=== PATIENT | male | born 1935 | race Caucasian/White ===

== ENCOUNTER → 2016-09-08 | Outpatient (REF) | payer MEDICARE ==
[~2016-09-08] MED LIST: /SENOSTA PO; /TAMS4CA; /TAMS4CA PO; /WARF25TA OR; ADV250INH INH; ADVAIR INH; ALEV220C2 PO; ALEV220T26 PO; ARIC5TAB; ARTH650T PO; ASPI81TA21 PO; ASPI81TA83; ASPI81TA83 PO; ATEN50TA2; ATEN50TA2 PO; AVOD0.5C PO; Albuterol Inhaler INH; Bisacodyl PO; CALC12502 OR; CENTRUM SILVER PO; CENTTAB PO; CLOP75TA2 PO; COLA100C PO; DULC5TAB PO; ERGO5000 PO; FISHOIL; FLUTISP; FURO40TA2 PO; GLUCTAB6; KEFL500C7 PO; LAMI25TA; LASI40TA PO; LITH300C PO; LITH300T2; LITH300T2 PO; LOVA1CAP16 FT; MULTCAP PO; Meloxicam PO; NITR0.4S; NITR0.4S SL; NITR4TASL SL; OCEA0.65; PLAV75TA38 PO; PLAVIX PO; PRED20TA PO; PROA1AER INH; PROAAER INH; SIMV20TA2; SIMV20TA2 PO; SPIR1CAP INH; SPIR25TA2 PO; SPIRIVA INH; Spiriva Inhaler INH; TAMS0.4C2 PO; TYLE325T5; TYLE325T5 PO; TYLE650T30 PO; Tylenol Arthritis PO; VICO5TAB PO; VITA50003 PO; VITAMIN D50000 UNT PO; VITMTA PO; Vitamin D2 PO
[2016-09-08 11:42] LABS: ALBUMIN 4.1 GM/DL (3.2-5.2); ALBUMIN/GLOBULIN RATIO 1.32 (1.00-1.93); BILIRUBIN,TOTAL 0.5 MG/DL (0.2-1.0); CALCIUM LEVEL 8.8 MG/DL (8.8-10.2); CREATININE FOR GFR 1.35 MG/DL (0.70-1.30); GLOMERULAR FILTRATION RATE 54.4 (>42); MAGNESIUM LEVEL 2.3 MG/DL (1.8-2.4); TOTAL PROTEIN 7.2 GM/DL (6.4-8.2)
== END | disposition home or self-care (01) ==
LOC: M SFHCPLAZ 09:41
PROVIDERS: ATTEND Internal Medicine
DX: R73.01 Impaired fasting glucose (principal); N18.3 Chronic kidney disease, stage 3 (moderate)

== ENCOUNTER → 2016-09-10 | Outpatient (REF) | payer MEDICARE | LOC: M SFHCPLAZ 16:52 → M SMT 16:52 | PROVIDERS: ATTEND Internal Medicine | DX: E78.00 Pure hypercholesterolemia, unspecified (principal); R30.0 Dysuria; H61.21 Impacted cerumen, right ear | CPT/HCPCS: 69210; 81001; 87088; 87186; G0463 ==

== ENCOUNTER → 2016-12-25 | Outpatient (CLI) | payer MEDICARE ==
[~2016-12-25] MED LIST changes: -COLA100C PO; +COLA100C3 PO
== END ==
LOC: M RAD 08:16
PROVIDERS: ATTEND Orthopaedic Surgery
DX: Z53.8 Procedure and treatment not carried out for other reasons (principal)

== ENCOUNTER → 2016-12-26 | Outpatient (CLI) | payer MEDICARE ==
--- NOTE | 2016-12-26 13:04 | REP ---
ULTRASOUND OF ABDOMINAL AORTA: Real-time sonographic evaluation of the abdominal aorta performed. Maximum AP diameter of abdominal aorta just below the diaphragms is 2.9 cm, at the level of the renal artery is 2.3 cm, mid infrarenal abdominal aorta 3.1 cm and distally 2.3 cm. Common iliac arteries are mildly ectatic, right measuring 2.0 cm and left 1.4 cm. IMPRESSION: Infrarenal abdominal aorta is mildly ectatic and borderline aneurysmal at 3.1 x 3.0 cm. There is mild ectasia of the common iliac arteries. Signed by Deuce Valadez MD 12/26/2016 05:19 P
== END ==
LOC: M RAD 08:26
PROVIDERS: ATTEND Orthopaedic Surgery
DX: M48.06 Spinal stenosis, lumbar region (principal); I77.811 Abdominal aortic ectasia

== ENCOUNTER → 2017-03-10 | Outpatient (REF) | payer MEDICARE ==
[~2017-03-10] MED LIST changes: -ARTH650T PO; +ARTH650T11 PO; -COLA100C3 PO; +COLA100C5 PO; +KEFL500C17 PO; -KEFL500C7 PO; +PLAV1TAB2 PO; -PLAV75TA38 PO; -PROA1AER INH; +PROAAER10 INH; +VITA1CAP40 PO; -VITA50003 PO
[2017-03-10 11:43] LABS: MEAN CORPUSCULAR HEMOGLOBIN 33.5 pg (27.0-33.0); MEAN CORPUSCULAR VOLUME 98.5 fl (80.0-96.0); RED CELL DISTRIBUTION WIDTH 13.2 % (11.5-14.5)
[2017-03-10 12:03] LABS: ALBUMIN 4.1 GM/DL (3.2-5.2); ALBUMIN/GLOBULIN RATIO 1.28 (1.00-1.93); BILIRUBIN,TOTAL 0.5 MG/DL (0.2-1.0); CALCIUM LEVEL 8.8 MG/DL (8.8-10.2); CREATININE FOR GFR 1.41 MG/DL (0.70-1.30); GLOMERULAR FILTRATION RATE 51.6 (>42); MAGNESIUM LEVEL 2.3 MG/DL (1.8-2.4); TOTAL PROTEIN 7.3 GM/DL (6.4-8.2)
== END ==
LOC: M SFHCPLAZ 09:14
PROVIDERS: ATTEND Internal Medicine
DX: G47.30 Sleep apnea, unspecified (principal); E78.00 Pure hypercholesterolemia, unspecified; N18.3 Chronic kidney disease, stage 3 (moderate); E55.9 Vitamin D deficiency, unspecified

== ENCOUNTER → 2017-05-06 | Outpatient (CLI) | payer MEDICARE ==
--- NOTE | 2017-05-06 10:58 | REP ---
Clinical: History of carotid stenosis. Comparison: 02/28/2015 . Technique: Valadez scale and color Doppler evaluation using linear high frequency transducer Findings: Two-dimensional valadez scale and color images demonstrate mixed atheromatous plaquing along the bilateral common carotid arteries extending to the carotid bulbs and proximal internal and external carotid arteries (L>R). Color Doppler interrogation demonstrates normal arterial wave patterns with no significant spectral broadening. Normal flow direction is appreciated in the bilateral vertebral arteries. RIGHT (cm/s) LEFT (cm/s) ICA peak systolic velocity 123.7 99.9 ICA diastolic velocity 26.4 27.0 ECA peak systolic velocity 137.6 100.2 CCA peak systolic velocity 88.7 81.5 ICA/CCA ratio 1.39 1.26 Impression: Based on set standards, right-sided narrowing approaches the 50-69% range while narrowing on the left side remains in the 50% range. Findings are similar to prior examination. Signed by Rohith Florian MD 05/06/2017 10:49 A
== END ==
LOC: M RAD 09:28
PROVIDERS: ATTEND Surgery Vascular Surgery
DX: I65.23 Occlusion and stenosis of bilateral carotid arteries (principal)

== ENCOUNTER → 2017-09-16 | Outpatient (REF) | payer MEDICARE ==
[2017-09-16 11:29] LABS: ESTIMATED AVERAGE GLUCOSE 111 MG/DL (60-110); HEMOGLOBIN A1c 5.5 %
[2017-09-16 11:34] LABS: ALBUMIN 3.8 GM/DL (3.2-5.2); ALBUMIN/GLOBULIN RATIO 1.27 (1.00-1.93); ALKALINE PHOSPHATASE 96 U/L (45-117); ALT/SGPT 13 U/L (12-78); ANION GAP 6 MEQ/L (8-16); AST/SGOT 12 U/L (7-37); BILIRUBIN,TOTAL 0.4 MG/DL (0.2-1.0); BLOOD UREA NITROGEN 23 MG/DL (7-18); CALCIUM LEVEL 8.8 MG/DL (8.8-10.2); CARBON DIOXIDE LEVEL 26 MEQ/L (21-32); CHLORIDE LEVEL 113 MEQ/L (98-107); CHOLESTEROL LEVEL 123 MG/DL (<200); CHOLESTEROL RISK RATIO 2.928 (<5); CREATININE FOR GFR 1.24 MG/DL (0.70-1.30); GLOMERULAR FILTRATION RATE 59.9 (>42); GLUCOSE, FASTING 95 MG/DL (70-100); HDL CHOLESTEROL 42 MG/DL (>40); LDL CHOLESTEROL 50.4 MG/DL (<100); NON-HDL-C 81 MG/DL; POTASSIUM SERUM 4.8 MEQ/L (3.5-5.1); SODIUM LEVEL 145 MEQ/L (136-145); TOTAL PROTEIN 6.8 GM/DL (6.4-8.2); TRIGLYCERIDES LEVEL 153 MG/DL (<150)
[2017-09-16 12:14] LABS: PTH INTACT 137.3 PG/ML (14.0-72.0)
== END ==
LOC: M SFHCPLAZ 09:18
DX: I25.10 Atherosclerotic heart disease of native coronary artery without angina pectoris (principal); R73.01 Impaired fasting glucose; E78.00 Pure hypercholesterolemia, unspecified; N18.3 Chronic kidney disease, stage 3 (moderate)
CPT/HCPCS: 80053

== ENCOUNTER → 2017-10-06 | Outpatient (CLI) | payer MEDICARE | LOC: M RAD 09:24 | DX: Z12.2 Encounter for screening for malignant neoplasm of respiratory organs (principal); F17.210 Nicotine dependence, cigarettes, uncomplicated; Z95.0 Presence of cardiac pacemaker; Z95.1 Presence of aortocoronary bypass graft | CPT/HCPCS: G0297 ==

== ENCOUNTER → 2018-03-15 | Outpatient (REF) | payer MEDICARE ==
[2018-03-15 12:00] LABS: PTH INTACT 160.5 PG/ML (18.5-88.0); TOTAL 25(OH) VITAMIN D 46.7 NG/ML (30.0-100.0)
[2018-03-15 12:07] LABS: ALBUMIN 4.3 GM/DL (3.2-5.2); ALBUMIN/GLOBULIN RATIO 1.23 (1.00-1.93); ALKALINE PHOSPHATASE 95 U/L (45-117); ALT/SGPT 16 U/L (12-78); ANION GAP 10 MEQ/L (8-16); AST/SGOT 14 U/L (7-37); BILIRUBIN,TOTAL 0.6 MG/DL (0.2-1.0); BLOOD UREA NITROGEN 21 MG/DL (7-18); CARBON DIOXIDE LEVEL 24 MEQ/L (21-32); CHLORIDE LEVEL 108 MEQ/L (98-107); CREATININE FOR GFR 1.42 MG/DL (0.70-1.30); GLOMERULAR FILTRATION RATE 51.1 (>35); GLUCOSE, FASTING 90 MG/DL (70-100); POTASSIUM SERUM 4.8 MEQ/L (3.5-5.1); SODIUM LEVEL 142 MEQ/L (136-145); TOTAL PROTEIN 7.8 GM/DL (6.4-8.2)
[2018-03-15 14:29] LABS: ESTIMATED AVERAGE GLUCOSE 108 MG/DL (60-110); HEMOGLOBIN A1c 5.4 %
[2018-03-15 15:12] LABS: CREATININE, URINE 27.2 MG/DL; MALB URINE SIEMENS 9.4 MG/L; MAU/CREAT RATIO 34.5 MCG/MG (0.0-30.0)
== END ==
LOC: M SFHCPLAZ 09:36
DX: N18.3 Chronic kidney disease, stage 3 (moderate) (principal); E55.9 Vitamin D deficiency, unspecified; I25.10 Atherosclerotic heart disease of native coronary artery without angina pectoris; R73.01 Impaired fasting glucose
CPT/HCPCS: 80053

== ENCOUNTER → 2018-09-03 | Outpatient (CLI) | payer MEDICARE ==
[~2018-09-03] MED LIST changes: +SPIR-10 PO; -SPIR25TA2 PO; -VITA1CAP40 PO; +VITA50005 PO
--- NOTE | 2018-09-03 10:31 | REP ---
Chest two views HISTORY: COPD Comparison: 02/12/2016 The lungs are clear. The heart is normal in size. The pulmonary vasculature is normal in appearance. The bony structure is intact. A cardiac pacemaker is present. IMPRESSION: No acute disease. Electronically Signed by Jimbo Sanabria MD 09/03/2018 10:22 A
== END ==
LOC: M SMT 09:49
PROVIDERS: ATTEND Internal Medicine Pulmonary Disease
DX: J44.9 Chronic obstructive pulmonary disease, unspecified (principal)

== ENCOUNTER → 2018-09-15 | Outpatient (REF) | payer MEDICARE | LOC: M SFHCPLAZ 10:06 | PROVIDERS: ATTEND Internal Medicine | DX: G47.30 Sleep apnea, unspecified (principal); I25.10 Atherosclerotic heart disease of native coronary artery without angina pectoris; E78.00 Pure hypercholesterolemia, unspecified; N18.3 Chronic kidney disease, stage 3 (moderate); E55.9 Vitamin D deficiency, unspecified; Z53.8 Procedure and treatment not carried out for other reasons ==

== ENCOUNTER → 2018-12-01 | Outpatient (CLI) | payer MEDICARE ==
[~2018-12-01] MED LIST changes: -/SENOSTA PO; -/TAMS4CA; -/TAMS4CA PO; -/WARF25TA OR; +COUM1TAB18 OR; +FLOM0.4C39; +FLOM0.4C39 PO; +FLUT1SPR2; +SENO1TAB PO
--- NOTE | 2018-12-01 14:58 | REP ---
CAROTID ULTRASOUND: Real-time ultrasound evaluation and duplex Doppler interrogation of the extracranial carotid vasculature is performed and compared to a prior study of 11/27/2017. Again moderate partially calcified plaque in both carotid bulbs and internal carotid arteries. There is again elevated peak systolic velocity in the right internal carotid artery. Findings are consistent with stenosis at the right internal carotid artery 60-79%. Luminal narrowing of the left internal carotid artery is most consistent with narrowing less than 50%. There is normal direction of flow in both vertebral arteries. RIGHT LEFT Peak systolic velocity ICA 203 cm/s 80.3 cm/s End diastolic velocity ICA 60 cm/s 25.1 cm/s Peak systolic velocity CCA 81.4 cm/s 73.2 cm/s Peak systolic velocity ECA 145 cm/s 98.7 cm/s ICA/CCA ratio 2.5 1.1 IMPRESSION: No change since prior studies most recently 11/27/2017. There are findings compatible with stenosis of the right internal carotid artery 60-79% with luminal narrowing of the left ICA less than 50%. Electronically Signed by Deuce Valadez MD 12/01/2018 03:25 P
== END ==
LOC: M RAD 13:05
PROVIDERS: ATTEND Surgery Vascular Surgery
DX: I65.23 Occlusion and stenosis of bilateral carotid arteries (principal)

== ENCOUNTER → 2019-01-05 | Outpatient (CLI) | payer MEDICARE ==
--- NOTE | 2019-01-05 11:59 | REP ---
Abdominal aortic sonography: History: Nicotine dependence. Abdominal aortic aneurysm. Findings: The abdominal aorta could not be seen at the diaphragmatic hiatus due to bowel gas. At the main renal artery level of the aorta is mildly dilated measuring 3.2 x 2.7 cm in AP by transverse dimension. The mid aorta measures 2.0 x 1.9 cm. The distal aorta is normal as well measuring 1.8 x 1.9 cm. The right and left common iliac arteries measure 1.1 and 0.9 cm in AP dimension respectively. Impression: Mild mid abdominal aortic aneurysm 3.2 cm in greatest AP dimension. This is unchanged with CT measurements obtained on January 29, 2017. Electronically Signed by Gonsalo Hollingsworth MD 01/05/2019 01:42 P
== END ==
LOC: M RAD 08:33
PROVIDERS: ATTEND Physician Assistant
DX: F17.218 Nicotine dependence, cigarettes, with other nicotine-induced disorders (principal); I71.4 Abdominal aortic aneurysm, without rupture

== ENCOUNTER → 2019-04-06 | Outpatient (REF) | payer MEDICARE ==
[2019-04-06 17:26] LABS: HEMATOCRIT 36.3 % (42.0-52.0); HEMOGLOBIN 11.7 g/dl (13.5-17.5); MEAN CORPUSCULAR HEMOGLOBIN 31.8 pg (27.0-33.0); MEAN CORPUSCULAR HGB CONC 32.2 g/dl (32.0-36.5); MEAN CORPUSCULAR VOLUME 98.6 fl (80.0-96.0); PLATELET COUNT, AUTOMATED 225 10^3/uL (150-450); RED BLOOD COUNT 3.68 10^6/uL (4.30-6.10); WHITE BLOOD COUNT 9.1 10^3/uL (4.0-10.0)
[2019-04-06 17:30] LABS: ALBUMIN 3.9 GM/DL (3.2-5.2); BILIRUBIN,TOTAL 0.3 MG/DL (0.2-1.0); CALCIUM LEVEL 8.8 MG/DL (8.8-10.2); CHOLESTEROL RISK RATIO 2.163 (<5); CREATININE FOR GFR 1.53 MG/DL (0.70-1.30); GLOMERULAR FILTRATION RATE 46.7 (>35); MAGNESIUM LEVEL 2.5 MG/DL (1.8-2.4); POTASSIUM SERUM 4.3 MEQ/L (3.5-5.1); TOTAL PROTEIN 6.6 GM/DL (6.4-8.2)
[2019-04-06 17:38] LABS: PTH INTACT 92.3 PG/ML (18.5-88.0)
[2019-04-06 18:02] LABS: HEMOGLOBIN A1c 5.1 %
== END ==
LOC: M SFHCPLAZ 14:53
PROVIDERS: ATTEND Internal Medicine
DX: I25.10 Atherosclerotic heart disease of native coronary artery without angina pectoris (principal); R73.01 Impaired fasting glucose; N18.3 Chronic kidney disease, stage 3 (moderate); J44.9 Chronic obstructive pulmonary disease, unspecified; R30.0 Dysuria; H61.21 Impacted cerumen, right ear
CPT/HCPCS: 36415; 69209; 80053; 80061; 83036; 83735; 83970; 85027; G0463

== ENCOUNTER → 2019-04-08 | Outpatient (REF) | payer MEDICARE ==
[2019-04-08 11:31] LABS: APPEARANCE, URINE CLEAR (CLEAR); BACTERIA, URINE AUTO NEGATIVE (NEGATIVE); BILIRUBIN, URINE AUTO NEGATIVE (NEGATIVE); BLOOD, URINE BLOOD NEGATIVE (NEGATIVE); COLOR, URINE STRAW (YELLOW); GLUCOSE, URINE (UA) AUTO NEGATIVE (NEGATIVE); KETONE, URINE AUTO NEGATIVE (NEGATIVE); LEUKOCYTE ESTERASE, URINE AUTO NEGATIVE (NEGATIVE); NITRITE, URINE AUTO NEGATIVE (NEGATIVE); PROTEIN, URINE AUTO NEGATIVE (NEGATIVE); RBC, URINE AUTO 2 /HPF (0-3); SPECIFIC GRAVITY URINE AUTO 1.005 (1.002-1.035); SQUAMOUS EPITHELIAL CELL UR AU 0 /HPF (0-6); UROBILINOGEN, URINE AUTO 0.2 mg/dL (0.0-2.0); WBC, URINE AUTO 2 /HPF (0-3)
== END ==
LOC: M SFHCPLAZ 04-07 10:14
PROVIDERS: ATTEND Internal Medicine
DX: I25.10 Atherosclerotic heart disease of native coronary artery without angina pectoris (principal); R73.01 Impaired fasting glucose; N18.3 Chronic kidney disease, stage 3 (moderate)

== ENCOUNTER → 2019-08-01 | Outpatient (REF) | payer MEDICARE ==
[~2019-08-01] MED LIST changes: +CALC1CAP31 PO; +NORC1TAB7 PO; +SIMV20TA22 PO
[2019-08-01 12:06] LABS: HEMATOCRIT 42.2 % (42.0-52.0); HEMOGLOBIN 13.4 g/dl (13.5-17.5); MEAN CORPUSCULAR HEMOGLOBIN 31.8 pg (27.0-33.0); MEAN CORPUSCULAR HGB CONC 31.8 g/dl (32.0-36.5); PLATELET COUNT, AUTOMATED 208 10^3/uL (150-450); RED BLOOD COUNT 4.22 10^6/uL (4.30-6.10); WHITE BLOOD COUNT 7.6 10^3/uL (4.0-10.0)
[2019-08-01 12:10] LABS: CALCIUM LEVEL 9.1 MG/DL (8.8-10.2); CREATININE FOR GFR 1.52 MG/DL (0.70-1.30); GLOMERULAR FILTRATION RATE 47.1 (>35); POTASSIUM SERUM 4.6 MEQ/L (3.5-5.1)
== END ==
LOC: M SFHCPLAZ 08:37
PROVIDERS: ATTEND Internal Medicine
DX: Z01.818 Encounter for other preprocedural examination (principal); I25.10 Atherosclerotic heart disease of native coronary artery without angina pectoris; G47.30 Sleep apnea, unspecified
CPT/HCPCS: 36415; 80048; 85027; G0463

== ENCOUNTER 2019-08-04 07:49 | Day surgery (SDC) | payer MEDICARE ==
[~2019-08-04] VITALS: Ht 182.9 cm; Wt 98.0 kg
[~2019-08-04 07:49] MED LIST changes: +LIDOCAINE 1% MDV 20ML VIAL SQ PRN; +LR 1,000 ML IV SCH; -NORC1TAB7 PO
[2019-08-04] MEDS ORDERED: BUPIVACAINE HCL 0.25% 30 ML VIAL As Ordered ONE (09:33)
[2019-08-04] MEDS ORDERED: BUPIVACAINE LIPOSOME/PF 1.3% 20ML VIAL (13.3MG/ML)(EXPAREL)(C9290 PER1MG) As Ordered ONE (09:33)
[2019-08-04] MEDS ORDERED: ALBUTEROL SULFATE 2.5 MG/0.5 ML INH NEB SOLN As Ordered ONE (09:52)
[2019-08-04] MEDS ORDERED: NORC1TAB7 PO (10:09)
[2019-08-04] MEDS ORDERED: ALBUTEROL SULFATE 2.5 MG/0.5 ML INH NEB SOLN INH ONE (10:15)
[2019-08-04] MEDS ORDERED: SUGAMMADEX SODIUM 500 MG/5 ML VIAL (BRIDION) As Ordered ONE (10:42)
[2019-08-04] MEDS ORDERED: ETOMIDATE INJ 20MG/10ML VIAL As Ordered ONE (10:42)
[2019-08-04] MEDS ORDERED: ONDANSETRON 4MG/2ML VIAL (J2405) As Ordered ONE (10:42)
[2019-08-04] MEDS ORDERED: PROPOFOL 200 MG/20 ML VIAL As Ordered ONE (10:42)
[2019-08-04] MEDS ORDERED: ROCURONIUM BROMIDE 50 MG/5 ML VIAL As Ordered ONE ×2 (10:42→10:49)
[2019-08-04] MEDS ORDERED: LIDOCAINE 2% INJ 100 MG/5 ML SDV (FOR ANES.) As Ordered ONE (10:42)
[2019-08-04] MEDS ORDERED: dexameTHASONE 4 MG/ML 1ML VIAL (J1100) As Ordered ONE (10:42)
[2019-08-04] MEDS ORDERED: fentaNYL 250 MCG/5 ML INJECTION (J3010) As Ordered ONE (10:42)
[2019-08-04] MEDS ORDERED: LACRILUBE (AKWA TEARS) OPHTH OINT 3.5 GM As Ordered ONE (10:52)
[2019-08-04] MEDS ORDERED: fentaNYL 100 MCG/2 ML INJECTION (J3010) As Ordered ONE (12:24)
[2019-08-04] MEDS: fentaNYL 100 MCG/2 ML INJECTION (J3010) IV PRN ×4 (12:28→12:45)
[2019-08-04] MEDS ORDERED: NORCO, ANEXSIA 5/325MG TABLET (HYDROcodone/ACETAMINOPHEN) As Ordered ONE (12:44)
[2019-08-04] MEDS: NORCO, ANEXSIA 5/325MG TABLET (HYDROcodone/ACETAMINOPHEN) PO PRN ×2 (12:47→13:23)
[2019-08-04] MEDS ORDERED: ONDANSETRON 4MG/2ML VIAL (J2405) IV PRN ×2 (13:00→13:15)
[2019-08-04] MEDS ORDERED: MORPHINE 10 MG/ML 1ML VIAL (J2270) IV PRN ×2 (13:00→13:15)
[2019-08-04] MEDS ORDERED: LR 1,000 ML IV SCH ×2 (13:00→13:15)
[2019-08-04] MEDS ORDERED: NORCO, ANEXSIA 5/325MG TABLET (HYDROcodone/ACETAMINOPHEN) PO PRN ×2 (13:15→14:00)
[2019-08-04] MEDS ORDERED: fentaNYL 100 MCG/2 ML INJECTION (J3010) IV PRN (13:15)
[2019-08-04] MEDS ORDERED: ACETAMINOPHEN TAB 650MG DOSE (2X325MG) PO PRN ×2 (13:15→14:00)
[2019-08-04 17:57] VITALS: BP 124/65
--- NOTE | 2019-08-04 23:07 | RO ---
DATE OF PROCEDURE: 08/04/2019 PREOPERATIVE DIAGNOSIS: Right inguinal hernia. POSTOPERATIVE DIAGNOSIS: Indirect right inguinal hernia. PROCEDURE PERFORMED: Robotic-assisted laparoscopic right inguinal herniorrhaphy with mesh. SURGEON: Nigel Pena MD FRONT DESK ADMIN: MARIAM Moore. Jamilah assisted during the procedure with placement of the robotic ports, change of instruments, insertion of mesh and sutures and removal of needles as well as closure of the incisions. ANESTHESIA: General. INDICATIONS FOR PROCEDURE Patient is an 83-year-old man who has noted a bulge in the right inguinal area and on exam was confirmed to have an inguinal hernia. He is now for a robotic-assisted laparoscopic right inguinal herniorrhaphy. OPERATIVE PROCEDURE The patient was brought to the operating room and placed on the table in a supine position. He was placed under general endotracheal anesthesia. The patient's abdomen and groins were prepped and draped in a sterile fashion. The sites for three trocars across the upper abdomen approximately 5-6 cm above the level of the umbilicus were marked. Local anesthesia was achieved with 0.25% Marcaine. The left upper quadrant incision was made and a Veress needle was inserted. After positive hanging drop test the abdomen was insufflated with carbon dioxide gas. An 8-mm port was placed over the 5 mm scope and advanced through the abdominal wall without difficulty. Initial inspection identified the patient has known incarcerated umbilical hernia which contained some omental fat. He was noted to have a single strand-like adhesion of omentum in the right midabdomen as well as some adhesions to the anterior abdominal wall of the right lateral abdomen at the site of a prior appendectomy. These latter adhesions did not seem to interfere in any way with identification of his inguinal hernia. He was noted to have a roughly 2 cm hernia defect on the right with no hernia on the left. The midline and right ports were then also placed under direct vision. The patient was tilted to approximately 15 degrees of Trendelenburg. The patient cart of the OFERTALDIA Mehreen robot was then brought into position and the camera port was docked. The pelvis was targeted and the additional ports were then also docked. A Force bipolar and cauterizing scissors were inserted. I then moved to the control console to proceed with the robotic portion of the procedure. The area of the hernia was inspected. The defect appeared to lie lateral to the inferior epigastric vessels consistent with an indirect hernia. A peritoneal flap was then developed by making an arcuate incision beginning with the medial umbilical ligament and extending laterally and then inferiorly. The flap was developed with a combination of sharp and cautery dissection working inferiorly. The inferior epigastric vessels were identified and preserved. The fascial tissues near the midline and Anupam's ligament were identified. The hernia sac was inverted and away from the other structures of the spermatic cord. The vas deferens and the vessels were identified and preserved. Once the preperitoneal space had been developed adequately, a Bard 3-D Max light mesh large in size and developed for the right side was inserted into the abdomen. This was reference code [id number] and lot number [id number]. This was placed into the preperitoneal space and nicely covered the area of the hernia defect. This was tacked at Anupam's ligament and in the upper outer edge of the mesh using simple sutures of #2-0 Vicryl. The peritoneal flap was then closed with a running #2-0 V-Loc suture. I would note that the abdominal pressure had been reduced to approximately 8 cm of water after the flap had been developed. The patient was returned to a flat position and then moved to a slight reverse Trendelenburg position. The robotic instruments were removed and the abdomen was deflated. The skin incisions were closed with buried sutures of #4-0 Vicryl. Steri-Strips and light dressings were applied. The patient was noted to have some significant gaseous distension of the scrotum up to about 20 to even 25 cm. There was also some prepubic subcutaneous air or gas identified. The patient tolerated the procedure well without apparent complication. He was awakened in the operating room, extubated and moved to the recovery room in stable condition. EDITORIAL NOTE Editing note that in the body of the report that after the hernia repair had been completed, I elected to divide the single band-like adhesion in the right side of the abdomen and this was cauterized and divided.
== END 2019-08-04 18:00 | disposition home or self-care (01) ==
LOC: M SDC 07:49
PROVIDERS: ATTEND Surgery
DX: K40.90 Unilateral inguinal hernia, without obstruction or gangrene, not specified as recurrent (principal); I25.2 Old myocardial infarction; I10 Essential (primary) hypertension; E78.5 Hyperlipidemia, unspecified; I25.10 Atherosclerotic heart disease of native coronary artery without angina pectoris; Z92.3 Personal history of irradiation; F41.9 Anxiety disorder, unspecified; F17.218 Nicotine dependence, cigarettes, with other nicotine-induced disorders; Z95.0 Presence of cardiac pacemaker; Z79.899 Other long term (current) drug therapy; Z88.0 Allergy status to penicillin; Z88.8 Allergy status to other drugs, medicaments and biological substances
CPT/HCPCS: 49650; C1781; J1100; J2405; J3010

== ENCOUNTER → 2019-10-07 | Outpatient (CLI) | payer MEDICARE ==
[~2019-10-07] MED LIST changes: -ARTH650T11 PO; +ARTH650T4 PO; -LIDOCAINE 1% MDV 20ML VIAL SQ PRN; -LR 1,000 ML IV SCH; +NORC1TAB7 PO
[2019-10-07 14:05] LABS: HEMATOCRIT 41.5 % (42.0-52.0); HEMOGLOBIN 13.3 g/dl (13.5-17.5); MEAN CORPUSCULAR HEMOGLOBIN 31.7 pg (27.0-33.0); MEAN CORPUSCULAR VOLUME 98.8 fl (80.0-96.0); PLATELET COUNT, AUTOMATED 212 10^3/uL (150-450); WHITE BLOOD COUNT 8.2 10^3/uL (4.0-10.0)
[2019-10-07 14:30] LABS: HEMOGLOBIN A1c 5.3 %
[2019-10-07 14:38] LABS: ALBUMIN 4.4 GM/DL (3.2-5.2); BILIRUBIN,TOTAL 0.5 MG/DL (0.2-1.0); CALCIUM LEVEL 9.4 MG/DL (8.8-10.2); CREATININE FOR GFR 1.88 MG/DL (0.70-1.30); GLOMERULAR FILTRATION RATE 36.8 (>35); MAGNESIUM LEVEL 2.4 MG/DL (1.8-2.4); POTASSIUM SERUM 4.5 MEQ/L (3.5-5.1); TOTAL PROTEIN 7.3 GM/DL (6.4-8.2)
[2019-10-07 14:42] LABS: PTH INTACT 104.7 PG/ML (18.5-88.0)
[2019-10-07 14:43] LABS: MALB URINE SIEMENS 11.2 MG/L; MAU/CREAT RATIO 10.5 MCG/MG (0.0-30.0)
== END ==
LOC: M PLALAB 10:20
PROVIDERS: ATTEND Internal Medicine
DX: R73.01 Impaired fasting glucose (principal); I25.10 Atherosclerotic heart disease of native coronary artery without angina pectoris; G47.30 Sleep apnea, unspecified; N18.3 Chronic kidney disease, stage 3 (moderate)

== ENCOUNTER → 2020-04-25 | Outpatient (CLI) | payer MEDICARE ==
[~2020-04-25] MED LIST changes: +ARTH650T11 PO; -ARTH650T4 PO
--- NOTE | 2020-05-22 14:31 | REP ---
AORTIC ULTRASOUND CLINICAL: History of abdominal aortic aneurysm for follow-up. TECHNIQUE: Real-time wallace scale and color Doppler evaluation using curved array transducer. FINDINGS: A mid abdominal aortic aneurysm is again identified and essentially unchanged measuring approximately 3.3 x 3.9 cm maximal AP and transverse diameter and 5.8 cm in craniocaudal length along with ectatic bilateral iliac arteries. Proximal aorta measures 2.2 x 2.5 cm in diameter. Aorta at the level of the renal arteries is incompletely evaluated due to bowel gas. Mid aorta measures 3.2 x 3.9 cm maximal diameter. Distal aorta above the level of bifurcation measures 2.8 x 3.3 cm maximal diameter. Right common iliac artery measures 1.8 x 2.0 cm in diameter. Left common iliac artery measures 1.2 x 1.7 cm in diameter. IMPRESSION: * Mid abdominal aortic aneurysm essentially unchanged from prior examination. * Ectatic bilateral iliac arteries again noted as well. MTDD
--- NOTE | 2020-05-22 14:32 | REP ---
CAROTID DOPPLER ULTRASOUND CLINICAL: History of carotid arterial stenosis. TECHNIQUE: Real-time wallace scale and color Doppler evaluation using linear high frequency transducer. COMPARISON: 12/01/2018. FINDINGS: A mild amount of partially calcified atheromatous plaquing is noted involving the bilateral carotid bulbs and extending into the proximal internal and external carotid arteries bilaterally (left greater than right). Normal laminar flow is appreciated with color imaging and normal arterial wave patterns are identified. The vertebral arteries demonstrate normal bilateral flow direction. PEAK FLOW VELOCITY ANALYSIS RIGHT LEFT ICA PSV 112.9 cm/s 126.4 cm/s ICA EDV 31.5 cm/s 31.4 cm/s ECA PSV 100.4 cm/s 87.4 cm/s CCA PSV 82.2 cm/s 86.8 cm/s ICA/CCA RATIO 1.4 1.5 IMPRESSION: Current examination now demonstrates narrowing in the right internal carotid artery at the less than 50% range and narrowing in the left internal carotid artery in the 50% to 69% range. In comparison with the prior examination, the right internal carotid artery (ICA) appears improved. MTDD
== END ==
LOC: M RAD 08:37
PROVIDERS: ATTEND Physician Assistant
DX: I65.23 Occlusion and stenosis of bilateral carotid arteries (principal); I71.4 Abdominal aortic aneurysm, without rupture

== ENCOUNTER → 2020-11-07 | Outpatient (CLI) | payer MEDICARE ==
--- NOTE | 2020-11-07 09:44 | REP ---
INDICATION: ABDOMINAL AORTIC ANEURYSM, WITHOUT RUPTURE COMPARISON: 01/29/2017 TECHNIQUE: Axial noncontrast images from the lung bases to the pubic symphysis with coronal and sagittal reformations. This CT examination was performed using the following dose reduction techniques: Automated exposure control, adjustment of mA and/or kv according to the patient's size, and use of iterative reconstruction technique. FINDINGS: Atherosclerotic changes to the aorta and branch vessels again noted. The aorta is mildly tortuous and demonstrates moderate ectasia up to approximately 3.2 cm maximal diameter and unchanged from prior examination. Liver, spleen, pancreas, bilateral adrenal glands and kidneys are essentially normal for noncontrast evaluation. Mild symmetric chronic appearing perinephric stranding along with few small rounded hypodense renal lesions which may represent cysts are again noted. Cholelithiasis noted without evidence for acute cholecystitis. The enteric system demonstrates significant sigmoid diverticulosis. There is no evidence for bowel obstruction or acute inflammatory process. 3.5 cm fat containing periumbilical hernia is unchanged. Evaluation of the pelvis is limited by metallic streak artifact and demonstrates relatively normal bladder along with prostatomegaly. No ascites. No free air. No adenopathy. Skeletal structures demonstrate age-related degenerative changes and chronic scoliosis. Lung bases are clear. IMPRESSION: 1. Atherosclerotic changes and ectasia to the abdominal aorta measuring 3.2 cm maximal diameter. Findings unchanged from prior examination. 2. Small renal hypodensities likely cysts which may warrant ultrasound confirmation. 3. Sigmoid diverticulosis without acute diverticulitis. 4. Stable fat containing periumbilical hernia. 5. Prostatomegaly. <Electronically signed by Rohith Florian > 11/07/20 [id number]
--- NOTE | 2020-11-07 09:51 | REP ---
INDICATION: ABDOMINAL AORTIC ANEURYSM, WITHOUT RUPTURE. COMPARISON: 04/25/2020. TECHNIQUE: Duplex Doppler ultrasound of the carotid arteries. FINDINGS: Peak flow velocities: Right left Internal carotid artery 241.7 cm/sec 119.7 cm/sec Int. Carotid diastolic 43.3 cm/sec 25.4 cm/sec External carotid artery 127.8 cm/sec 131.0 cm/sec Common carotid artery 103.2 cm/sec 95.7 cm/sec ICA-CCA ratio 2.3 1.3 There is moderate to heavy atheromatous plaque bilaterally in the distal common carotid arteries proximal internal carotid arteries and proximal external carotid arteries. The peak flow velocity in the right internal carotid artery has significantly increased from the comparison study and is now compatible with 70% or greater stenosis but less than near occlusion. The peak flow velocity in the left internal carotid artery is normal indicating there is less than 50% narrowing. No significant stenosis. There is antegrade flow in the vertebral arteries bilaterally. IMPRESSION: There has been significant elevation of the right internal carotid peak flow velocity from the prior study today measuring 241.7 centimeters/second. This is compatible with 70% stenosis or greater but less than near occlusion. Vascular surgery consultation might be considered. <Electronically signed by Deuce Jackson > 11/07/20 0915
== END ==
LOC: M RAD 08:46
PROVIDERS: ATTEND Physician Assistant
DX: I71.4 Abdominal aortic aneurysm, without rupture (principal); I65.23 Occlusion and stenosis of bilateral carotid arteries; K57.30 Diverticulosis of large intestine without perforation or abscess without bleeding; N40.1 Benign prostatic hyperplasia with lower urinary tract symptoms; N28.89 Other specified disorders of kidney and ureter

== ENCOUNTER → 2020-12-31 | Outpatient (CLI) | payer MEDICARE ==
[2020-12-31 13:56] LABS: HEMOGLOBIN 13.2 g/dl (13.5-17.5); MEAN CORPUSCULAR HEMOGLOBIN 32.8 pg (27.0-33.0); MEAN CORPUSCULAR HGB CONC 33.8 g/dl (32.0-36.5); MEAN CORPUSCULAR VOLUME 96.8 fl (80.0-96.0); PLATELET COUNT, AUTOMATED 223 10^3/uL (150-450); RED BLOOD COUNT 4.03 10^6/uL (4.30-6.10); WHITE BLOOD COUNT 7.1 10^3/uL (4.0-10.0)
[2020-12-31 14:36] LABS: CREATININE FOR GFR 1.72 MG/DL (0.70-1.30); GLOMERULAR FILTRATION RATE 40.6 (>35); THYROID STIMULATING HORMONE 0.73 uIU/ML (0.358-3.740)
== END ==
LOC: M PLALAB 11:43
PROVIDERS: ATTEND Psychiatry & Neurology Psychiatry
DX: I50.42 Chronic combined systolic (congestive) and diastolic (congestive) heart failure (principal); Z79.899 Other long term (current) drug therapy

== ENCOUNTER → 2021-01-08 | Outpatient (CLI) | payer MEDICARE ==
--- NOTE | 2021-01-08 11:15 | REPPI ---
INDICATION: COPD. COMPARISON: 12/27/2019 the latest prior TECHNIQUE: PA and lateral FINDINGS: The superior mediastinal structures are midline. The cardiac silhouette is unremarkable in size, shape, and position. The diaphragmatic surfaces of the lungs are regular, and the costophrenic angles are clear. The pulmonary san are clear. The imaged osseous structures are intact. The dual chamber bipolar pacemaker devices unchanged. The intracardiac stent is unchanged. IMPRESSION: There is no acute cardiopulmonary disease. <Electronically signed by Fitz Dougherty > 01/08/21 1118
== END ==
LOC: M PLAIMG 10:03
PROVIDERS: ATTEND Internal Medicine Pulmonary Disease
DX: J44.9 Chronic obstructive pulmonary disease, unspecified (principal)

== ENCOUNTER → 2021-01-30 | Outpatient (REF) | payer MEDICARE ==
[2021-01-30 15:27] LABS: BASO # 0.1 10^3/uL (0.0-0.2); BASO % 0.6 % (0.0-1.0); EOS # 0.4 10^3/uL (0.0-0.5); EOS % 4.4 % (0.0-3.0); HEMATOCRIT 37.9 % (42.0-52.0); HEMOGLOBIN 12.4 g/dl (13.5-17.5); LYMPH # 2.4 10^3/uL (1.5-5.0); LYMPH % 30.4 % (24.0-44.0); MEAN CORPUSCULAR HEMOGLOBIN 32.7 pg (27.0-33.0); MEAN CORPUSCULAR HGB CONC 32.7 g/dl (32.0-36.5); MONO # 0.5 10^3/uL (0.0-0.8); MONO % 6.8 % (2.0-8.0); NEUTROPHILS # 4.6 10^3/uL (1.5-8.5); NEUTROPHILS % 57.4 % (36.0-66.0); PLATELET COUNT, AUTOMATED 234 10^3/uL (150-450); RED BLOOD COUNT 3.79 10^6/uL (4.30-6.10)
[2021-01-30 17:25] LABS: ALBUMIN 3.8 GM/DL (3.2-5.2); ALT/SGPT 14 U/L (12-78); BILIRUBIN,TOTAL 0.4 MG/DL (0.2-1.0); BLOOD UREA NITROGEN 22 MG/DL (7-18); CALCIUM LEVEL 8.8 MG/DL (8.8-10.2); CARBON DIOXIDE LEVEL 23 MEQ/L (21-32); CHLORIDE LEVEL 110 MEQ/L (98-107); CHOLESTEROL LEVEL 122 MG/DL (<200); CHOLESTEROL RISK RATIO 2.346 (<5); CREATININE FOR GFR 1.61 MG/DL (0.70-1.30); FOLATE 14.9 NG/ML; GLOMERULAR FILTRATION RATE 43.8 (>35); GLUCOSE, FASTING 90 MG/DL (70-100); HDL CHOLESTEROL 52 MG/DL (>40); LDL CHOLESTEROL 45 MG/DL (<100); NON-HDL-C 70 MG/DL; POTASSIUM SERUM 4.4 MEQ/L (3.5-5.1); PTH INTACT 95.6 PG/ML (18.5-88.0); SODIUM LEVEL 141 MEQ/L (136-145); TOTAL PROTEIN 6.7 GM/DL (6.4-8.2); TRIGLYCERIDES LEVEL 126 MG/DL (<150); VITAMIN B12 LEVEL 309 PG/ML
== END ==
LOC: M SFHCPLAZ 11:59
PROVIDERS: ATTEND Internal Medicine
DX: E78.00 Pure hypercholesterolemia, unspecified (principal); N18.30 Chronic kidney disease, stage 3 unspecified; R26.89 Other abnormalities of gait and mobility; G47.30 Sleep apnea, unspecified; Z11.59 Encounter for screening for other viral diseases
CPT/HCPCS: 36415; 80053; 80061; 82607; 82746; 83970; 84443; 85025; G0463; G0472

== ENCOUNTER → 2021-03-13 | Outpatient (CLI) | payer MEDICARE | LOC: M PLALAB 11:12 | PROVIDERS: ATTEND Psychiatry & Neurology Psychiatry | DX: Z79.899 Other long term (current) drug therapy (principal) ==

== ENCOUNTER → 2021-03-25 | Outpatient (CLI) | payer MEDICARE ==
[2021-03-25 10:38] LABS: BASO # 0.1 10^3/uL (0.0-0.2); BASO % 0.6 % (0.0-1.0); EOS # 0.3 10^3/uL (0.0-0.5); EOS % 4.1 % (0.0-3.0); HEMATOCRIT 38.4 % (42.0-52.0); HEMOGLOBIN 12.5 g/dl (13.5-17.5); LYMPH # 2.3 10^3/uL (1.5-5.0); LYMPH % 28.3 % (24.0-44.0); MEAN CORPUSCULAR HEMOGLOBIN 32.6 pg (27.0-33.0); MEAN CORPUSCULAR HGB CONC 32.6 g/dl (32.0-36.5); MEAN CORPUSCULAR VOLUME 100.3 fl (80.0-96.0); MONO # 0.5 10^3/uL (0.0-0.8); MONO % 5.8 % (2.0-8.0); NEUTROPHILS # 4.9 10^3/uL (1.5-8.5); NEUTROPHILS % 60.8 % (36.0-66.0); PLATELET COUNT, AUTOMATED 256 10^3/uL (150-450); RED BLOOD COUNT 3.83 10^6/uL (4.30-6.10)
[2021-03-25 11:05] LABS: ALBUMIN 4.1 GM/DL (3.2-5.2); BILIRUBIN,TOTAL 0.4 MG/DL (0.2-1.0); CREATININE FOR GFR 1.91 MG/DL (0.70-1.30); POTASSIUM SERUM 4.9 MEQ/L (3.5-5.1); TOTAL PROTEIN 7.1 GM/DL (6.4-8.2)
== END ==
LOC: M PLALAB 08:07
PROVIDERS: ATTEND Internal Medicine
DX: R53.1 Weakness (principal)
CPT/HCPCS: 36415; 80053; 85025; G0463

== ENCOUNTER → 2021-03-25 | Outpatient (REF) | payer MEDICARE | LOC: M SFHCPLAZ 07:37 | PROVIDERS: ATTEND Internal Medicine | DX: R53.1 Weakness (principal) ==

== ENCOUNTER → 2021-04-03 | Outpatient (CLI) | payer MEDICARE ==
--- NOTE | 2021-04-03 13:47 | REPVR ---
PROCEDURE INFORMATION: Exam: CT Head Without Contrast Exam date and time: 04/03/2021 10:20 AM Age: 85 years old Clinical indication: Walking, difficulty and other: Tremor TECHNIQUE: Imaging protocol: Computed tomography of the head without contrast. Radiation optimization: All CT scans at this facility use at least one of these dose optimization techniques: automated exposure control; mA and/or kV adjustment per patient size (includes targeted exams where dose is matched to clinical indication); or iterative reconstruction. COMPARISON: US Duplex,carotid (complete) 11/07/2020 9:03 AM FINDINGS: Brain: There is no acute intracranial hemorrhage, cerebral edema, or midline shift. Chronic microvascular ischemic changes are seen in the periventricular white matter. Age-related cerebral and cerebellar volume loss is present. Cerebral ventricles: No hydrocephalus. Paranasal sinuses: There is no acute sinusitis. Mastoid air cells: The mastoid air cells are clear. Orbital cavity: The included orbital structures are unremarkable. Vasculature: Atherosclerotic calcifications are seen involving the cavernous carotid arteries. Bones/joints: No acute fracture. Soft tissues: Unremarkable. IMPRESSION: 1. No acute intracranial abnormality. 2. Atrophy and chronic deep white matter ischemic changes. Electronically signed by: Derrell Bansal On 04/03/2021 13:46:43 PM
== END ==
LOC: M PLAIMG 09:52
PROVIDERS: ATTEND Internal Medicine
DX: R25.1 Tremor, unspecified (principal)

== ENCOUNTER → 2021-06-26 | Outpatient (CLI) | payer MEDICARE ==
[2021-06-26 14:03] LABS: BILIRUBIN,TOTAL 0.4 MG/DL (0.2-1.0); CALCIUM LEVEL 9.9 MG/DL (8.8-10.2); CREATININE FOR GFR 1.87 MG/DL (0.70-1.30); GLOMERULAR FILTRATION RATE 36.9 (>35); POTASSIUM SERUM 5.2 MEQ/L (3.5-5.1); TOTAL PROTEIN 7.1 GM/DL (6.4-8.2)
[2021-06-26 14:08] LABS: PTH INTACT 80.9 PG/ML (18.5-88.0)
== END ==
LOC: M PLALAB 09:19
PROVIDERS: ATTEND Internal Medicine
DX: N18.30 Chronic kidney disease, stage 3 unspecified (principal); I50.42 Chronic combined systolic (congestive) and diastolic (congestive) heart failure

== ENCOUNTER → 2021-06-26 | Outpatient (CLI) | payer MEDICARE ==
[2021-06-26 13:59] LABS: CREATININE FOR GFR 1.83 MG/DL (0.70-1.30); GLOMERULAR FILTRATION RATE 37.8 (>35); MAGNESIUM LEVEL 2.4 MG/DL (1.8-2.4); POTASSIUM SERUM 5.3 MEQ/L (3.5-5.1)
== END ==
LOC: M PLALAB 09:22
PROVIDERS: ATTEND Physician Assistant
DX: I50.42 Chronic combined systolic (congestive) and diastolic (congestive) heart failure (principal)

== ENCOUNTER → 2021-11-05 | Outpatient (CLI) | payer MEDICARE ==
[2021-11-05 13:51] LABS: CALCIUM LEVEL 9.5 MG/DL (8.8-10.2); CREATININE FOR GFR 1.94 MG/DL (0.70-1.30); GLOMERULAR FILTRATION RATE 35.3 (>35); MAGNESIUM LEVEL 2.5 MG/DL (1.8-2.4); POTASSIUM SERUM 5.2 MEQ/L (3.5-5.1)
== END ==
LOC: M PLALAB 11:38
PROVIDERS: ATTEND Physician Assistant
DX: I50.42 Chronic combined systolic (congestive) and diastolic (congestive) heart failure (principal)

== ENCOUNTER → 2021-12-13 | Outpatient (REF) | payer MEDICARE ==
[2021-12-13 17:51] LABS: TOTAL PROTEIN 6.7 GM/DL (6.4-8.2)
== END ==
LOC: M LAB REF 17:07
PROVIDERS: ATTEND Internal Medicine Nephrology
DX: I50.42 Chronic combined systolic (congestive) and diastolic (congestive) heart failure (principal)

== ENCOUNTER → 2021-12-30 | Outpatient (REF) | payer MEDICARE | LOC: M SFHCPLAZ 15:02 | PROVIDERS: ATTEND Internal Medicine | DX: E78.00 Pure hypercholesterolemia, unspecified (principal) ==

== ENCOUNTER → 2021-12-31 | Outpatient (CLI) | payer MEDICARE ==
[2021-12-31 10:44] LABS: CHOLESTEROL RISK RATIO 2.388 (<5)
== END ==
LOC: M PLALAB 07:46
PROVIDERS: ATTEND Internal Medicine
DX: E78.00 Pure hypercholesterolemia, unspecified (principal)

== ENCOUNTER → 2022-01-24 | Outpatient (CLI) | payer MEDICARE | LOC: M RAD 11:56 | PROVIDERS: ATTEND Internal Medicine Nephrology | DX: N18.31 Chronic kidney disease, stage 3a (principal) ==

== ENCOUNTER 2022-02-14 12:38 | Inpatient (IN) | payer MEDICARE ==
[~2022-02-14] VITALS: Ht 185.4 cm; Wt 92.8 kg
[2022-02-14] MEDS: LITHIUM CARBONATE 300 MG CAP PO SCH (02:15)
[2022-02-14] MEDS: SIMVASTATIN 20 MG TAB PO SCH (02:15)
[2022-02-14] MEDS ORDERED: NS 500 ML IV ONE (16:05)
[2022-02-14] MEDS ORDERED: MORPHINE 2 MG/ML 1ML VIAL IV ONE (16:05)
[2022-02-14] MEDS ORDERED: ONDANSETRON 4MG 2ML VIAL IV ONE (16:05)
[2022-02-14 16:33] LABS: BASO % 0.1 % (0.0-1.0); EOS % 0.1 % (0.0-3.0); HEMOGLOBIN 12.2 g/dl (13.5-17.5); LYMPH # 0.6 10^3/uL (1.5-5.0); LYMPH % 4.2 % (24.0-44.0); MEAN CORPUSCULAR HEMOGLOBIN 33.1 pg (27.0-33.0); MEAN CORPUSCULAR VOLUME 100.3 fl (80.0-96.0); MONO # 0.4 10^3/uL (0.0-0.8); NEUTROPHILS # 12.8 10^3/uL (1.5-8.5); NEUTROPHILS % 92.2 % (36.0-66.0); PLATELET COUNT, AUTOMATED 216 10^3/uL (150-450); RED BLOOD COUNT 3.69 10^6/uL (4.30-6.10); WHITE BLOOD COUNT 13.9 10^3/uL (4.0-10.0)
[2022-02-14 17:04] LABS: ALBUMIN 4.2 GM/DL (3.2-5.2); BILIRUBIN,DIRECT 0.2 MG/DL (0.0-0.2); BILIRUBIN,TOTAL 0.6 MG/DL (0.2-1.0); TOTAL PROTEIN 7.3 GM/DL (6.4-8.2)
[2022-02-14] MEDS ORDERED: HYDROMORPHONE HCL 0.5 MG/ 0.5 ML SYRINGE (J1170 PER 1) IV ONE (18:05)
[2022-02-14 18:09] LABS: RSV AMPLIFICATION NEGATIVE (NEGATIVE)
[2022-02-14] MEDS ORDERED: MOM 30ML SUSPENSION UDC PO PRN (20:00)
[2022-02-14] MEDS ORDERED: NS 1,000 ML IV SCH (20:00)
[2022-02-14] MEDS ORDERED: MAALOX 30 ML SUSP *UDC PO PRN (20:00)
[2022-02-14] MEDS ORDERED: ACETAMINOPHEN TAB 650MG DOSE (2X325MG) PO PRN (20:00)
[2022-02-14] MEDS ORDERED: MORPHINE 2 MG/ML 1ML VIAL IV PRN (20:05)
[2022-02-14] MEDS ORDERED: IPRATROPIUM 0.5MG/ALBUTEROL 2.5MG INH SOL UD 3ML (DUONEB) NEB PRN (20:05)
[2022-02-14] MEDS ORDERED: ERTAPENEM 1GM VIAL(INVanz) (J1335 PER 500MG) As Ordered ONE (20:43)
[2022-02-14] MEDS ORDERED: CLIN-250 PO (20:44)
[2022-02-14] MEDS ORDERED: OXYC1TAB23 PO (20:44)
[2022-02-14] MEDS ORDERED: ROCA0.5C PO (20:44)
[2022-02-14] MEDS ORDERED: ASPI81TA26 PO (20:45)
[2022-02-14] MEDS ORDERED: HOME MED LIST COMPLETE! XX SCH (20:50)
[2022-02-14] MEDS ORDERED: ALBUTEROL 90 MCG/ACT 8GM HFA INHALER INH PRN (21:50)
[2022-02-14] MEDS ORDERED: NITROGLYCERIN 0.4 MG SUBL TABLET SL PRN (21:50)
[2022-02-14] MEDS ORDERED: BUPIVACAINE LIPOSOME/PF 1.3% 20ML VIAL (13.3MG/ML)(EXPAREL) As Ordered ONE (22:03)
[2022-02-14] MEDS ORDERED: BUPIVACAINE HCL 0.25% 30ML VIAL As Ordered ONE (22:03)
[2022-02-14] MEDS ORDERED: ETOMIDATE INJ 20MG/10ML VIAL As Ordered ONE (22:39)
[2022-02-14] MEDS ORDERED: dexameTHASONE 4 MG/ML 1ML VIAL (J1100 PER 1MG) As Ordered ONE (22:39)
[2022-02-14] MEDS ORDERED: PHENYLephrine 500MCG 5ML (100MCG/ML) SYRINGE As Ordered ONE (22:39)
[2022-02-14] MEDS ORDERED: ONDANSETRON 4MG 2ML VIAL As Ordered ONE (22:39)
[2022-02-14] MEDS ORDERED: propofoL 200 MG/20 ML VIAL As Ordered ONE (22:39)
[2022-02-14] MEDS ORDERED: fentaNYL 250 MCG/5 ML INJECTION As Ordered ONE (22:39)
[2022-02-14] MEDS ORDERED: ROCURONIUM BROMIDE 50 MG/5 ML VIAL As Ordered ONE (22:39)
[2022-02-14] MEDS ORDERED: SUGAMMADEX SODIUM 500 MG/5 ML VIAL (BRIDION) As Ordered ONE (22:39)
[2022-02-14] MEDS ORDERED: PHENYLEPHRINE 10MG/ML 1ML VIAL (J2370 PER 1) As Ordered ONE (22:47)
[2022-02-14] MEDS ORDERED: ePHEDrine SULFATE 25 MG/5 ML(5MG/ML) SYRINGE As Ordered ONE (22:59)
[2022-02-14] MEDS ORDERED: ACETAMINOPHEN 1000MG 100ML IV BTL (OFIRMEV) (J0131 PER 10MG) As Ordered ONE (22:59)
[2022-02-15] VITALS (91 sets, daily range): BP systolic 75–128; BP diastolic 44–66
[2022-02-15] MEDS ORDERED: PERCOCET 5MG/325MG TAB PO PRN ×2 (00:10)
[2022-02-15] MEDS: LR 1,000 ML IV SCH ×3 (00:15→20:28)
[2022-02-15] MEDS ORDERED: PHENYLEPHRINE 10MG/ML 1ML VIAL (J2370 PER 1) As Ordered ONE (00:33)
[2022-02-15] MEDS ORDERED: fentaNYL 100 MCG/2 ML INJECTION As Ordered ONE (00:35)
[2022-02-15] MEDS: fentaNYL 100 MCG/2 ML INJECTION IV PRN ×4 (00:35→00:55)
[2022-02-15] MEDS ORDERED: ONDANSETRON 4MG 2ML VIAL IV PRN (00:50)
[2022-02-15] MEDS ORDERED: MORPHINE 2 MG/ML 1ML VIAL IV PRN (00:50)
[2022-02-15] MEDS ORDERED: LR 1,000 ML IV SCH (00:50)
[2022-02-15] MEDS ORDERED: PHENYLEPHRINE HCL INJ 50 MG in D5W 495 ML IV SCH ×4 (00:55→06:20)
[2022-02-15 01:56] LABS: HEMATOCRIT 40.9 % (42.0-52.0); HEMOGLOBIN 13.1 g/dl (13.5-17.5); MEAN CORPUSCULAR HEMOGLOBIN 32.5 pg (27.0-33.0); MEAN CORPUSCULAR VOLUME 101.5 fl (80.0-96.0); PLATELET COUNT, AUTOMATED 196 10^3/uL (150-450); RED BLOOD COUNT 4.03 10^6/uL (4.30-6.10); WHITE BLOOD COUNT 1.9 10^3/uL (4.0-10.0)
[2022-02-15] MEDS: CIPROFLOXACIN 400 MG in IV 1 EA IV SCH ×3 (02:13→20:32)
[2022-02-15 02:24] LABS: CALCIUM LEVEL 7.9 MG/DL (8.8-10.2); CREATININE FOR GFR 2.47 MG/DL (0.70-1.30); GLOMERULAR FILTRATION RATE 26.7 (>35); POTASSIUM SERUM 5.2 MEQ/L (3.5-5.1)
[2022-02-15] MEDS: MORPHINE 4 MG/ML 1ML VIAL/SYRINGE IV PRN ×2 (02:27→08:32)
[2022-02-15 02:36] LABS: ANISOCYTOSIS 1+; ATYPICAL LYMPH 8 % (0-5); LYMPHOCYTES 26 % (16-44); MONOCYTES 10 % (0-5); NEUTROPHILS 51 % (28-66); PLATELET ESTIMATE NORMAL (NORMAL); POIKILOCYTOSIS 1+; TOXIC VACUOLATION 1+
[2022-02-15 02:37] LABS: BURR CELLS 1+
[2022-02-15] MEDS: metroNIDAZOLE 500 MG in IV 1 EA IV SCH ×4 (03:23→22:06)
[2022-02-15 05:32] LABS: HEMATOCRIT 40.6 % (42.0-52.0); HEMOGLOBIN 12.7 g/dl (13.5-17.5); MEAN CORPUSCULAR HEMOGLOBIN 31.8 pg (27.0-33.0); MEAN CORPUSCULAR HGB CONC 31.3 g/dl (32.0-36.5); MEAN CORPUSCULAR VOLUME 101.5 fl (80.0-96.0); PLATELET COUNT, AUTOMATED 210 10^3/uL (150-450); WHITE BLOOD COUNT 1.9 10^3/uL (4.0-10.0)
[2022-02-15 05:56] LABS: ANISOCYTOSIS 1+; ATYPICAL LYMPH 7 % (0-5); EOSINOPHILS 2 % (0-3); LYMPHOCYTES 27 % (16-44); MONOCYTES 9 % (0-5); MYELOCYTES 1 % (0-0); NEUTROPHILS 47 % (28-66); PLATELET ESTIMATE NORMAL (NORMAL); POIKILOCYTOSIS 1+; TOXIC VACUOLATION 1+
[2022-02-15 05:57] LABS: BURR CELLS 1+
[2022-02-15 05:59] LABS: BILIRUBIN,TOTAL 0.7 MG/DL (0.2-1.0); CREATININE FOR GFR 2.39 MG/DL (0.70-1.30); GLOMERULAR FILTRATION RATE 27.7 (>35); MAGNESIUM LEVEL 1.8 MG/DL (1.8-2.4); POTASSIUM SERUM 5.1 MEQ/L (3.5-5.1); TOTAL PROTEIN 5.4 GM/DL (6.4-8.2)
[2022-02-15] MEDS: TIOTROPIUM INHALER/CAPSULE (SPIRIVA) INH SCH (08:00)
[2022-02-15] MEDS: ADVAIR HFA 115/21MCG INHALER INH SCH ×2 (08:00→19:29)
[2022-02-15] MEDS: CALCITRIOL 0.25 MCG CAP (S0169) PO SCH (08:11)
[2022-02-15] MEDS ORDERED: MORPHINE 4 MG/ML 1ML VIAL/SYRINGE IV PRN (08:45)
[2022-02-15] MEDS ORDERED: TAMSULOSIN 0.4 MG CAP PO SCH (09:00)
[2022-02-15] MEDS ORDERED: LR 500 ML IV ONE (09:20)
[2022-02-15] MEDS ORDERED: LACTATED RINGER'S 1000 ML IV ONE (13:00)
[2022-02-15] MEDS ORDERED: LR 1,000 ML IV ONE (16:20)
[2022-02-15] MEDS: MORPHINE 2 MG/ML 1ML VIAL IV PRN ×2 (17:58→23:53)
[2022-02-15] MEDS: NOREPINEPHRINE/DEXTROSE 8 MG in IV 1 EA IV SCH (18:49)
[2022-02-15] MEDS: SIMVASTATIN 20 MG TAB PO SCH (20:35)
[2022-02-15] MEDS: LITHIUM CARBONATE 300 MG CAP PO SCH (20:35)
[2022-02-16] VITALS (52 sets, daily range): BP systolic 88–121; BP diastolic 48–60
[2022-02-16] MEDS: ONDANSETRON 4MG 2ML VIAL IV PRN ×3 (01:09→16:13)
[2022-02-16] MEDS: MORPHINE 2 MG/ML 1ML VIAL IV PRN (04:38)
[2022-02-16] MEDS: metroNIDAZOLE 500 MG in IV 1 EA IV SCH ×3 (05:32→21:48)
[2022-02-16 05:43] LABS: HEMATOCRIT 27.3 % (42.0-52.0); MEAN CORPUSCULAR HEMOGLOBIN 31.8 pg (27.0-33.0); MEAN CORPUSCULAR HGB CONC 31.9 g/dl (32.0-36.5); MEAN CORPUSCULAR VOLUME 99.6 fl (80.0-96.0); PLATELET COUNT, AUTOMATED 154 10^3/uL (150-450); RED BLOOD COUNT 2.74 10^6/uL (4.30-6.10); WHITE BLOOD COUNT 8.5 10^3/uL (4.0-10.0)
[2022-02-16 05:51] LABS: HEMOGLOBIN 8.7 g/dl (13.5-17.5)
[2022-02-16] MEDS ORDERED: GI COCKTAIL 50ML BTL(HYOSCYAMINE/MAALOX/LIDOCAINE VISCOUS)(1:3:1) PO ONE (06:05)
[2022-02-16 06:15] LABS: ALBUMIN 2.1 GM/DL (3.2-5.2); BILIRUBIN,TOTAL 0.4 MG/DL (0.2-1.0); CALCIUM LEVEL 7.6 MG/DL (8.8-10.2); CREATININE FOR GFR 2.27 MG/DL (0.70-1.30); GLOMERULAR FILTRATION RATE 29.4 (>35); POTASSIUM SERUM 5.7 MEQ/L (3.5-5.1); TOTAL PROTEIN 4.3 GM/DL (6.4-8.2)
[2022-02-16] MEDS ORDERED: HumuLIN R (REGULAR) INSULIN (NovoLIN R) **100U/ML** PER UNIT IV STA (07:21)
[2022-02-16] MEDS ORDERED: DEXTROSE 50% 50 ML SYRINGE IV STA (07:21)
[2022-02-16] MEDS: TIOTROPIUM INHALER/CAPSULE (SPIRIVA) INH SCH (07:51)
[2022-02-16] MEDS: ADVAIR HFA 115/21MCG INHALER INH SCH ×2 (07:52→18:15)
[2022-02-16] MEDS: CALCITRIOL 0.25 MCG CAP (S0169) PO SCH (08:17)
[2022-02-16] MEDS: NOREPINEPHRINE/DEXTROSE 8 MG in IV 1 EA IV SCH ×2 (08:20→20:15)
[2022-02-16] MEDS: CIPROFLOXACIN 400 MG in IV 1 EA IV SCH ×2 (08:24→20:14)
[2022-02-16] MEDS: HEPARIN SOD (PORCINE) 5000UNITS/ML 1ML VIAL/SYRINGE SQ SCH ×3 (09:54→21:48)
[2022-02-16] MEDS: PANTOPRAZOLE 40MG VIAL IV SCH (09:54)
[2022-02-16] MEDS: METOCLOPRAMIDE INJ 10MG/2ML VIAL (J2765 PER 1) IV SCH ×2 (09:54→18:07)
[2022-02-16] MEDS: LR 1,000 ML IV SCH (09:54)
[2022-02-16] MEDS: SODIUM BICARBONATE 50 MEQ in NS 0.45% 1,000 ML IV SCH ×2 (12:11→20:15)
[2022-02-16 12:41] LABS: CALCIUM LEVEL 7.5 MG/DL (8.8-10.2); CREATININE FOR GFR 2.32 MG/DL (0.70-1.30); GLOMERULAR FILTRATION RATE 28.7 (>35)
[2022-02-16] MEDS ORDERED: FUROSEMIDE injection 250 MG in D5W 225 ML IV SCH (13:00)
[2022-02-16] MEDS: LITHIUM CARBONATE 300 MG CAP PO SCH (20:14)
[2022-02-16] MEDS: SIMVASTATIN 20 MG TAB PO SCH (20:14)
[2022-02-16] MEDS: PROMETHAZINE 25MG/ML 1ML VIAL IV PRN (20:15)
[2022-02-16 20:33] LABS: CALCIUM LEVEL 7.9 MG/DL (8.8-10.2); CREATININE FOR GFR 2.2 MG/DL (0.70-1.30); GLOMERULAR FILTRATION RATE 30.5 (>35); POTASSIUM SERUM 4.7 MEQ/L (3.5-5.1)
[2022-02-17] VITALS (27 sets, daily range): BP systolic 94–136; BP diastolic 35–75; O2SAT 98–99
[2022-02-17] MEDS: METOCLOPRAMIDE INJ 10MG/2ML VIAL (J2765 PER 1) IV SCH ×3 (01:22→17:39)
[2022-02-17] MEDS: PROMETHAZINE 25MG/ML 1ML VIAL IV PRN (03:47)
[2022-02-17 05:06] LABS: HEMATOCRIT 27.9 % (42.0-52.0); HEMOGLOBIN 9.3 g/dl (13.5-17.5); MEAN CORPUSCULAR HEMOGLOBIN 32.5 pg (27.0-33.0); MEAN CORPUSCULAR HGB CONC 33.3 g/dl (32.0-36.5); MEAN CORPUSCULAR VOLUME 97.6 fl (80.0-96.0); PLATELET COUNT, AUTOMATED 153 10^3/uL (150-450); RED BLOOD COUNT 2.86 10^6/uL (4.30-6.10); WHITE BLOOD COUNT 9.9 10^3/uL (4.0-10.0)
[2022-02-17 05:33] LABS: ALBUMIN 2.1 GM/DL (3.2-5.2); BILIRUBIN,TOTAL 0.4 MG/DL (0.2-1.0); CALCIUM LEVEL 8.1 MG/DL (8.8-10.2); CREATININE FOR GFR 2.14 MG/DL (0.70-1.30); GLOMERULAR FILTRATION RATE 31.5 (>35); PHOSPHORUS LEVEL 3.3 MG/DL (2.5-4.9); POTASSIUM SERUM 3.9 MEQ/L (3.5-5.1); TOTAL PROTEIN 5.2 GM/DL (6.4-8.2)
[2022-02-17] MEDS: HEPARIN SOD (PORCINE) 5000UNITS/ML 1ML VIAL/SYRINGE SQ SCH ×3 (05:50→21:04)
[2022-02-17] MEDS: metroNIDAZOLE 500 MG in IV 1 EA IV SCH ×3 (05:51→21:52)
[2022-02-17] MEDS: SODIUM BICARBONATE 50 MEQ in NS 0.45% 1,000 ML IV SCH ×2 (05:51→13:40)
[2022-02-17 05:52] LABS: LITHIUM LEVEL 0.64 MEQ/L (0.60-1.20)
[2022-02-17] MEDS: TIOTROPIUM INHALER/CAPSULE (SPIRIVA) INH SCH (07:44)
[2022-02-17] MEDS: ADVAIR HFA 115/21MCG INHALER INH SCH ×2 (07:46→20:39)
[2022-02-17 09:46] LABS: PTH INTACT 284.7 PG/ML (18.5-88.0)
[2022-02-17] MEDS: PANTOPRAZOLE 40MG VIAL IV SCH (10:04)
[2022-02-17] MEDS: CIPROFLOXACIN 400 MG in IV 1 EA IV SCH ×2 (10:04→20:31)
[2022-02-17] MEDS: CALCITRIOL 0.25 MCG CAP (S0169) PO SCH (10:04)
[2022-02-17] MEDS ORDERED: fentaNYL 100 MCG/2 ML INJECTION IV STA (13:50)
[2022-02-17] MEDS ORDERED: MIDAZOLAM INJ 2MG/2ML VIAL (J2250 PER 1MG) IV STA (13:50)
[2022-02-17] MEDS: INSULIN LISPRO (NovoLOG) PER UNIT SC SCH ×2 (17:40→23:07)
[2022-02-17] MEDS ORDERED: MULTIVITAMIN -ADULT INJECTION 10 ML, ZINC/COPPER/MANGANESE/SELENIUM 1 ML in AMINO AC/EL... IV SCH (18:00)
[2022-02-17] MEDS: LITHIUM CARBONATE 300 MG CAP PO SCH (21:03)
[2022-02-17] MEDS: SIMVASTATIN 20 MG TAB PO SCH (21:04)
[2022-02-18] VITALS (19 sets, daily range): BP systolic 99–113; BP diastolic 53–62; O2SAT 74
[2022-02-18] MEDS ORDERED: KCL 10MEQ/100ML SWI (KRUN) 10 MEQ in IV 1 EA IV SCH ×2
[2022-02-18] MEDS: METOCLOPRAMIDE INJ 10MG/2ML VIAL (J2765 PER 1) IV SCH ×3 (01:04→17:56)
[2022-02-18 02:24] LABS: ABG BASE EXCESS 0.5 (-2.0-2.0); ABG HCO3 24.6 MEQ/L (22.0-26.0); ABG O2 SATURATION 89.2 % (95.0-99.0); ABG PARTIAL PRESSURE CO2 37.3 mmHg (35.0-45.0); ABG PARTIAL PRESSURE O2 54.9 mmHg (75.0-100.0); ABG STANDARD HCO3 24.8 MEQ/L (22.0-26.0); ABG TOTAL CO2 25.7 MEQ/L (23.0-31.0); ABG pH (ARTERIAL) 7.437 UNITS (7.350-7.450)
[2022-02-18] MEDS: HEPARIN SOD (PORCINE) 5000UNITS/ML 1ML VIAL/SYRINGE SQ SCH ×3 (05:14→21:39)
[2022-02-18] MEDS: metroNIDAZOLE 500 MG in IV 1 EA IV SCH ×3 (05:14→22:52)
[2022-02-18] MEDS: INSULIN LISPRO (NovoLOG) PER UNIT SC SCH ×4 (05:18→23:54)
[2022-02-18 05:32] LABS: HEMATOCRIT 26.2 % (42.0-52.0); HEMOGLOBIN 8.6 g/dl (13.5-17.5); MEAN CORPUSCULAR HEMOGLOBIN 32.3 pg (27.0-33.0); MEAN CORPUSCULAR HGB CONC 32.8 g/dl (32.0-36.5); MEAN CORPUSCULAR VOLUME 98.5 fl (80.0-96.0); PLATELET COUNT, AUTOMATED 169 10^3/uL (150-450); RED BLOOD COUNT 2.66 10^6/uL (4.30-6.10); WHITE BLOOD COUNT 10.2 10^3/uL (4.0-10.0)
[2022-02-18 06:01] LABS: BILIRUBIN,TOTAL 0.3 MG/DL (0.2-1.0); CALCIUM LEVEL 7.5 MG/DL (8.8-10.2); CREATININE FOR GFR 2.03 MG/DL (0.70-1.30); GLOMERULAR FILTRATION RATE 33.5 (>35); POTASSIUM SERUM 3.6 MEQ/L (3.5-5.1); TOTAL PROTEIN 4.3 GM/DL (6.4-8.2)
[2022-02-18 06:27] LABS: LITHIUM LEVEL 0.6 MEQ/L (0.60-1.20)
[2022-02-18] MEDS: TIOTROPIUM INHALER/CAPSULE (SPIRIVA) INH SCH (08:16)
[2022-02-18] MEDS: ADVAIR HFA 115/21MCG INHALER INH SCH (08:17)
[2022-02-18] MEDS: CALCITRIOL 0.25 MCG CAP (S0169) PO SCH (09:00)
[2022-02-18] MEDS ORDERED: FUROSEMIDE 100MG/10ML VIAL (J1940) IV ONE (09:30)
[2022-02-18] MEDS: CIPROFLOXACIN 400 MG in IV 1 EA IV SCH ×2 (10:28→21:09)
[2022-02-18] MEDS: PANTOPRAZOLE 40MG VIAL IV SCH (10:28)
[2022-02-18] MEDS: SODIUM CHLORIDE HYPERTONIC 3% 15ML NEB SOL INH SCH ×3 (12:02→19:40)
[2022-02-18] MEDS: ALBUTEROL SULFATE 2.5 MG/0.5 ML INH NEB SOLN NEB SCH ×3 (12:02→19:40)
[2022-02-18 14:51] LABS: ABG BASE EXCESS 0.8 (-2.0-2.0); ABG O2 SATURATION 93.9 % (95.0-99.0); ABG PARTIAL PRESSURE CO2 44.7 mmHg (35.0-45.0); ABG PARTIAL PRESSURE O2 71.2 mmHg (75.0-100.0); ABG STANDARD HCO3 25.1 MEQ/L (22.0-26.0); ABG TOTAL CO2 27.4 MEQ/L (23.0-31.0); ABG pH (ARTERIAL) 7.383 UNITS (7.350-7.450)
[2022-02-18] MEDS ORDERED: AMINO AC/ELECTROLYTE/DEX/CALC 2,566 ML IV SCH (18:00)
[2022-02-18] MEDS: BUDESONIDE 0.25 MG/2 ML INHALATION SUSPENSION INH SCH (19:42)
[2022-02-18] MEDS: SIMVASTATIN 20 MG TAB PO SCH (21:09)
[2022-02-18] MEDS: LITHIUM CARBONATE 300 MG CAP PO SCH (22:52)
[2022-02-18 23:01] LABS: CALCIUM LEVEL 7.5 MG/DL (8.8-10.2); CREATININE FOR GFR 1.96 MG/DL (0.70-1.30); GLOMERULAR FILTRATION RATE 34.9 (>35); MAGNESIUM LEVEL 1.9 MG/DL (1.8-2.4); POTASSIUM SERUM 3.4 MEQ/L (3.5-5.1); THYROID STIMULATING HORMONE 1.6 uIU/ML (0.358-3.740)
[2022-02-19] VITALS (26 sets, daily range): BP systolic 103–127; BP diastolic 52–61
[2022-02-19] MEDS: SODIUM CHLORIDE HYPERTONIC 3% 15ML NEB SOL INH SCH ×6 (00:17→19:34)
[2022-02-19] MEDS: ALBUTEROL SULFATE 2.5 MG/0.5 ML INH NEB SOLN NEB SCH ×6 (00:17→19:34)
[2022-02-19] MEDS ORDERED: KCL 10MEQ/100ML SWI (KRUN) 10 MEQ in IV 1 EA IV SCH (01:00)
[2022-02-19] MEDS: KCL 20MEQ IN 100ML SWI (KRUN) 20 MEQ in IV 1 EA IV SCH ×4 (01:06→02:04)
[2022-02-19] MEDS: METOCLOPRAMIDE INJ 10MG/2ML VIAL (J2765 PER 1) IV SCH (02:03)
[2022-02-19 05:17] LABS: HEMOGLOBIN 8.2 g/dl (13.5-17.5); MEAN CORPUSCULAR HEMOGLOBIN 32.9 pg (27.0-33.0); MEAN CORPUSCULAR HGB CONC 32.8 g/dl (32.0-36.5); MEAN CORPUSCULAR VOLUME 100.4 fl (80.0-96.0); PLATELET COUNT, AUTOMATED 172 10^3/uL (150-450); RED BLOOD COUNT 2.49 10^6/uL (4.30-6.10); WHITE BLOOD COUNT 9.4 10^3/uL (4.0-10.0)
[2022-02-19] MEDS: INSULIN LISPRO (NovoLOG) PER UNIT SC SCH ×3 (05:43→18:14)
[2022-02-19] MEDS: HEPARIN SOD (PORCINE) 5000UNITS/ML 1ML VIAL/SYRINGE SQ SCH ×3 (05:44→23:02)
[2022-02-19] MEDS: metroNIDAZOLE 500 MG in IV 1 EA IV SCH ×3 (05:44→23:02)
[2022-02-19 05:51] LABS: ALBUMIN 1.9 GM/DL (3.2-5.2); BILIRUBIN,TOTAL 0.3 MG/DL (0.2-1.0); CALCIUM LEVEL 7.9 MG/DL (8.8-10.2); CREATININE FOR GFR 1.87 MG/DL (0.70-1.30); GLOMERULAR FILTRATION RATE 36.8 (>35); LITHIUM LEVEL 0.6 MEQ/L (0.60-1.20); POTASSIUM SERUM 3.9 MEQ/L (3.5-5.1); TOTAL PROTEIN 4.4 GM/DL (6.4-8.2)
[2022-02-19 06:05] LABS: ABG BASE EXCESS 0.5 (-2.0-2.0); ABG HCO3 25.4 MEQ/L (22.0-26.0); ABG O2 SATURATION 95.1 % (95.0-99.0); ABG PARTIAL PRESSURE CO2 41.9 mmHg (35.0-45.0); ABG PARTIAL PRESSURE O2 74.5 mmHg (75.0-100.0); ABG STANDARD HCO3 24.9 MEQ/L (22.0-26.0); ABG TOTAL CO2 26.7 MEQ/L (23.0-31.0)
[2022-02-19] MEDS: BUDESONIDE 0.25 MG/2 ML INHALATION SUSPENSION INH SCH ×2 (07:33→19:34)
[2022-02-19] MEDS ORDERED: FUROSEMIDE 20MG/2ML VIAL (J1940) IV ONE (08:50)
[2022-02-19] MEDS: CALCITRIOL 0.25 MCG CAP (S0169) PO SCH (09:00)
[2022-02-19] MEDS: PANTOPRAZOLE 40MG VIAL IV SCH (09:25)
[2022-02-19] MEDS: methylPREDNISolone 125MG 2ML VIAL IV SCH ×2 (09:25→18:08)
[2022-02-19] MEDS: CIPROFLOXACIN 400 MG in IV 1 EA IV SCH ×2 (09:26→20:58)
[2022-02-19] MEDS ORDERED: MOM 30ML SUSPENSION UDC PO ONE (13:00)
[2022-02-19] MEDS ORDERED: MULTIVITAMIN -ADULT INJECTION 10 ML, ZINC/COPPER/MANGANESE/SELENIUM 1 ML in AMINO AC/EL... IV SCH (18:00)
[2022-02-19] MEDS: LITHIUM CARBONATE 300 MG CAP PO SCH (20:57)
[2022-02-19] MEDS: SIMVASTATIN 20 MG TAB PO SCH (20:57)
[2022-02-20] VITALS (15 sets, daily range): BP systolic 107–142; BP diastolic 53–61
[2022-02-20] MEDS: INSULIN LISPRO (NovoLOG) PER UNIT SC SCH ×4 (00:01→17:13)
[2022-02-20] MEDS: SODIUM CHLORIDE HYPERTONIC 3% 15ML NEB SOL INH SCH ×6 (00:34→19:44)
[2022-02-20] MEDS: ALBUTEROL SULFATE 2.5 MG/0.5 ML INH NEB SOLN NEB SCH ×6 (00:34→19:44)
[2022-02-20] MEDS: methylPREDNISolone 125MG 2ML VIAL IV SCH ×2 (02:00→10:18)
[2022-02-20 06:18] LABS: HEMATOCRIT 24.4 % (42.0-52.0); HEMOGLOBIN 7.9 g/dl (13.5-17.5); MEAN CORPUSCULAR HEMOGLOBIN 32.2 pg (27.0-33.0); MEAN CORPUSCULAR HGB CONC 32.4 g/dl (32.0-36.5); MEAN CORPUSCULAR VOLUME 99.6 fl (80.0-96.0); PLATELET COUNT, AUTOMATED 206 10^3/uL (150-450); RED BLOOD COUNT 2.45 10^6/uL (4.30-6.10); WHITE BLOOD COUNT 8.2 10^3/uL (4.0-10.0)
[2022-02-20 06:48] LABS: BILIRUBIN,TOTAL 0.2 MG/DL (0.2-1.0); CALCIUM LEVEL 8.1 MG/DL (8.8-10.2); CREATININE FOR GFR 1.6 MG/DL (0.70-1.30); GLOMERULAR FILTRATION RATE 44.1 (>35); LITHIUM LEVEL 0.54 MEQ/L (0.60-1.20); POTASSIUM SERUM 3.6 MEQ/L (3.5-5.1); TOTAL PROTEIN 4.6 GM/DL (6.4-8.2)
[2022-02-20] MEDS: metroNIDAZOLE 500 MG in IV 1 EA IV SCH ×2 (07:25→13:08)
[2022-02-20] MEDS: HEPARIN SOD (PORCINE) 5000UNITS/ML 1ML VIAL/SYRINGE SQ SCH ×3 (07:25→21:54)
[2022-02-20] MEDS: BUDESONIDE 0.25 MG/2 ML INHALATION SUSPENSION INH SCH ×2 (07:37→19:46)
[2022-02-20] MEDS ORDERED: FLEET ENEMA PR ONE (08:00)
[2022-02-20] MEDS ORDERED: MIRALAX *UNIT DOSE* 17GM PACKET PO ONE (08:00)
[2022-02-20] MEDS: CALCITRIOL 0.25 MCG CAP (S0169) PO SCH (08:57)
[2022-02-20] MEDS: PANTOPRAZOLE 40MG VIAL IV SCH (08:57)
[2022-02-20] MEDS: CIPROFLOXACIN 400 MG in IV 1 EA IV SCH ×2 (08:57→21:55)
[2022-02-20] MEDS ORDERED: LIDOCAINE 1% MDV 20ML VIAL As Ordered ONE (14:50)
[2022-02-20] MEDS ORDERED: NEOSPORIN OINT 0.9 GM PKT TOP ONE (15:45)
[2022-02-20] MEDS ORDERED: AMINO AC/ELECTROLYTE/DEX/CALC 2,566 ML IV SCH (18:00)
[2022-02-20] MEDS: SODIUM CHLORIDE 0.9% INJ 10 ML SYR IV SCH (18:30)
[2022-02-20] MEDS: LITHIUM CARBONATE 300 MG CAP PO SCH (21:54)
[2022-02-20] MEDS: SIMVASTATIN 20 MG TAB PO SCH (21:54)
[2022-02-20] MEDS: TAMSULOSIN 0.4 MG CAP PO SCH (21:54)
[2022-02-21] VITALS: BP 120/60
[2022-02-21] MEDS: metroNIDAZOLE 500 MG in IV 1 EA IV SCH ×2 (00:14→06:26)
[2022-02-21] MEDS: ALBUTEROL SULFATE 2.5 MG/0.5 ML INH NEB SOLN NEB SCH ×7 (00:38→23:36)
[2022-02-21] MEDS: SODIUM CHLORIDE HYPERTONIC 3% 15ML NEB SOL INH SCH ×7 (00:39→23:36)
[2022-02-21] MEDS: INSULIN LISPRO (NovoLOG) PER UNIT SC SCH ×3 (00:42→12:00)
[2022-02-21 05:45] LABS: HEMATOCRIT 25.4 % (42.0-52.0); HEMOGLOBIN 8.4 g/dl (13.5-17.5); MEAN CORPUSCULAR HEMOGLOBIN 32.2 pg (27.0-33.0); MEAN CORPUSCULAR HGB CONC 33.1 g/dl (32.0-36.5); MEAN CORPUSCULAR VOLUME 97.3 fl (80.0-96.0); PLATELET COUNT, AUTOMATED 289 10^3/uL (150-450); RED BLOOD COUNT 2.61 10^6/uL (4.30-6.10); WHITE BLOOD COUNT 12.3 10^3/uL (4.0-10.0)
[2022-02-21] MEDS: SODIUM CHLORIDE 0.9% INJ 10 ML SYR IV SCH ×2 (06:00→17:55)
[2022-02-21 06:20] LABS: ALBUMIN 2.2 GM/DL (3.2-5.2); BILIRUBIN,TOTAL 0.3 MG/DL (0.2-1.0); CALCIUM LEVEL 8.3 MG/DL (8.8-10.2); CREATININE FOR GFR 1.49 MG/DL (0.70-1.30); GLOMERULAR FILTRATION RATE 47.8 (>35); LITHIUM LEVEL 0.64 MEQ/L (0.60-1.20); POTASSIUM SERUM 3.9 MEQ/L (3.5-5.1); TOTAL PROTEIN 4.8 GM/DL (6.4-8.2)
[2022-02-21] MEDS: HEPARIN SOD (PORCINE) 5000UNITS/ML 1ML VIAL/SYRINGE SQ SCH ×3 (06:26→21:11)
[2022-02-21] MEDS: BUDESONIDE 0.25 MG/2 ML INHALATION SUSPENSION INH SCH ×2 (07:37→19:54)
[2022-02-21 08:00] VITALS: BP 115/55
[2022-02-21] MEDS: methylPREDNISolone 125MG 2ML VIAL IV SCH (08:24)
[2022-02-21] MEDS: PANTOPRAZOLE 40MG VIAL IV SCH (08:24)
[2022-02-21] MEDS: CALCITRIOL 0.25 MCG CAP (S0169) PO SCH (08:24)
[2022-02-21] MEDS: CIPROFLOXACIN 400 MG in IV 1 EA IV SCH (08:24)
[2022-02-21 12:00] VITALS: BP 135/64
[2022-02-21 15:56] VITALS: BP 131/59
[2022-02-21] MEDS: metroNIDAZOLE (FLAGYL) 500MG TABLET PO SCH ×2 (16:09→21:11)
[2022-02-21] MEDS: CIPROFLOXACIN 500MG TABLET PO SCH (17:54)
[2022-02-21 20:00] VITALS: BP 126/54
[2022-02-21] MEDS: LITHIUM CARBONATE 300 MG CAP PO SCH (21:11)
[2022-02-21] MEDS: TAMSULOSIN 0.4 MG CAP PO SCH (21:11)
[2022-02-21] MEDS: SIMVASTATIN 20 MG TAB PO SCH (21:11)
[2022-02-21 23:59] VITALS: BP 124/53
[2022-02-22 03:44] VITALS: BP 118/56
[2022-02-22] MEDS: HEPARIN SOD (PORCINE) 5000UNITS/ML 1ML VIAL/SYRINGE SQ SCH ×3 (05:18→21:04)
[2022-02-22] MEDS: CIPROFLOXACIN 500MG TABLET PO SCH ×2 (05:18→17:51)
[2022-02-22] MEDS: SODIUM CHLORIDE 0.9% INJ 10 ML SYR IV SCH ×2 (05:19→17:51)
[2022-02-22] MEDS: SODIUM CHLORIDE 0.9% INJ 10 ML SYR IV PRN (05:19)
[2022-02-22 06:20] LABS: HEMATOCRIT 25.3 % (42.0-52.0); HEMOGLOBIN 8.3 g/dl (13.5-17.5); MEAN CORPUSCULAR HGB CONC 32.8 g/dl (32.0-36.5); MEAN CORPUSCULAR VOLUME 97.7 fl (80.0-96.0); PLATELET COUNT, AUTOMATED 323 10^3/uL (150-450); RED BLOOD COUNT 2.59 10^6/uL (4.30-6.10); WHITE BLOOD COUNT 15.3 10^3/uL (4.0-10.0)
[2022-02-22 06:36] LABS: BILIRUBIN,TOTAL 0.3 MG/DL (0.2-1.0); CALCIUM LEVEL 8.5 MG/DL (8.8-10.2); CREATININE FOR GFR 1.59 MG/DL (0.70-1.30); GLOMERULAR FILTRATION RATE 44.4 (>35); POTASSIUM SERUM 4.2 MEQ/L (3.5-5.1); TOTAL PROTEIN 4.8 GM/DL (6.4-8.2)
[2022-02-22] MEDS: BUDESONIDE 0.25 MG/2 ML INHALATION SUSPENSION INH SCH ×2 (07:36→19:42)
[2022-02-22] MEDS: ALBUTEROL SULFATE 2.5 MG/0.5 ML INH NEB SOLN NEB SCH ×6 (07:36→23:24)
[2022-02-22] MEDS: SODIUM CHLORIDE HYPERTONIC 3% 15ML NEB SOL INH SCH ×6 (07:36→23:24)
[2022-02-22 07:41] VITALS: BP 115/53
[2022-02-22] MEDS: metroNIDAZOLE (FLAGYL) 500MG TABLET PO SCH ×3 (08:10→21:05)
[2022-02-22] MEDS: PANTOPRAZOLE 40MG TAB (PROTONIX) PO SCH (08:11)
[2022-02-22] MEDS: CALCITRIOL 0.25 MCG CAP (S0169) PO SCH (08:11)
[2022-02-22] MEDS: FLUCONAZOLE 100 MG TAB PO SCH (08:11)
[2022-02-22] MEDS ORDERED: methylPREDNISolone 125MG 2ML VIAL IV SCH (09:00)
[2022-02-22] MEDS ORDERED: predniSONE 10 MG TAB PO SCH (09:00)
[2022-02-22] MEDS ORDERED: predniSONE 20 MG TAB PO SCH (09:00)
[2022-02-22 11:57] VITALS: BP 106/57
[2022-02-22 15:38] VITALS: BP 112/56
[2022-02-22 20:00] VITALS: BP 123/58
[2022-02-22] MEDS: SIMVASTATIN 20 MG TAB PO SCH (21:04)
[2022-02-22] MEDS: SENOKOT S TAB PO SCH (21:05)
[2022-02-22] MEDS: LITHIUM CARBONATE 300 MG CAP PO SCH (21:05)
[2022-02-22] MEDS: TAMSULOSIN 0.4 MG CAP PO SCH (21:05)
[2022-02-23] VITALS: BP 121/56
[2022-02-23] MEDS: ALBUTEROL SULFATE 2.5 MG/0.5 ML INH NEB SOLN NEB SCH ×6 (03:20→23:24)
[2022-02-23] MEDS: SODIUM CHLORIDE HYPERTONIC 3% 15ML NEB SOL INH SCH ×6 (03:20→23:24)
[2022-02-23 04:00] VITALS: BP 137/61
[2022-02-23] MEDS ORDERED: diphenhydrAMINE 25MG CAP PO ONE (05:00)
[2022-02-23] MEDS: CIPROFLOXACIN 500MG TABLET PO SCH ×2 (06:02→17:56)
[2022-02-23] MEDS: HEPARIN SOD (PORCINE) 5000UNITS/ML 1ML VIAL/SYRINGE SQ SCH ×3 (06:02→20:56)
[2022-02-23] MEDS: SODIUM CHLORIDE 0.9% INJ 10 ML SYR IV SCH ×2 (06:02→17:58)
[2022-02-23] MEDS: SODIUM CHLORIDE 0.9% INJ 10 ML SYR IV PRN (06:03)
[2022-02-23 06:16] LABS: HEMATOCRIT 24.8 % (42.0-52.0); HEMOGLOBIN 8.1 g/dl (13.5-17.5); MEAN CORPUSCULAR HEMOGLOBIN 32.3 pg (27.0-33.0); MEAN CORPUSCULAR HGB CONC 32.7 g/dl (32.0-36.5); MEAN CORPUSCULAR VOLUME 98.8 fl (80.0-96.0); PLATELET COUNT, AUTOMATED 289 10^3/uL (150-450); RED BLOOD COUNT 2.51 10^6/uL (4.30-6.10); WHITE BLOOD COUNT 16.1 10^3/uL (4.0-10.0)
[2022-02-23 06:48] LABS: BILIRUBIN,TOTAL 0.4 MG/DL (0.2-1.0); CALCIUM LEVEL 8.1 MG/DL (8.8-10.2); CREATININE FOR GFR 1.64 MG/DL (0.70-1.30); GLOMERULAR FILTRATION RATE 42.8 (>35); LITHIUM LEVEL 0.75 MEQ/L (0.60-1.20); POTASSIUM SERUM 4.9 MEQ/L (3.5-5.1); TOTAL PROTEIN 4.5 GM/DL (6.4-8.2)
[2022-02-23] MEDS: BUDESONIDE 0.25 MG/2 ML INHALATION SUSPENSION INH SCH ×2 (07:28→19:30)
[2022-02-23 07:59] VITALS: BP 132/62
[2022-02-23] MEDS: metroNIDAZOLE (FLAGYL) 500MG TABLET PO SCH ×3 (08:09→20:55)
[2022-02-23] MEDS: PANTOPRAZOLE 40MG TAB (PROTONIX) PO SCH (08:09)
[2022-02-23] MEDS: CALCITRIOL 0.25 MCG CAP (S0169) PO SCH (08:09)
[2022-02-23] MEDS: FLUCONAZOLE 100 MG TAB PO SCH (08:09)
[2022-02-23] MEDS ORDERED: predniSONE 10 MG TAB PO SCH (09:00)
[2022-02-23 20:10] VITALS: BP 128/63
[2022-02-23] MEDS: TAMSULOSIN 0.4 MG CAP PO SCH (20:55)
[2022-02-23] MEDS: LITHIUM CARBONATE 300 MG CAP PO SCH (20:55)
[2022-02-23] MEDS: SIMVASTATIN 20 MG TAB PO SCH (20:55)
[2022-02-23] MEDS: SENOKOT S TAB PO SCH (20:55)
[2022-02-24] MEDS: CIPROFLOXACIN 500MG TABLET PO SCH ×2 (05:14→18:25)
[2022-02-24] MEDS: SODIUM CHLORIDE 0.9% INJ 10 ML SYR IV SCH ×2 (05:15→18:25)
[2022-02-24] MEDS: HEPARIN SOD (PORCINE) 5000UNITS/ML 1ML VIAL/SYRINGE SQ SCH ×3 (05:15→20:24)
[2022-02-24] MEDS: ALBUTEROL SULFATE 2.5 MG/0.5 ML INH NEB SOLN NEB SCH ×6 (05:21→23:12)
[2022-02-24] MEDS: SODIUM CHLORIDE HYPERTONIC 3% 15ML NEB SOL INH SCH ×6 (05:21→23:11)
[2022-02-24 06:02] VITALS: BP 117/65
[2022-02-24 06:26] LABS: HEMATOCRIT 26.5 % (42.0-52.0); HEMOGLOBIN 8.3 g/dl (13.5-17.5); MEAN CORPUSCULAR HEMOGLOBIN 30.7 pg (27.0-33.0); MEAN CORPUSCULAR HGB CONC 31.3 g/dl (32.0-36.5); MEAN CORPUSCULAR VOLUME 98.1 fl (80.0-96.0); PLATELET COUNT, AUTOMATED 332 10^3/uL (150-450); WHITE BLOOD COUNT 19.2 10^3/uL (4.0-10.0)
[2022-02-24 06:42] LABS: CALCIUM LEVEL 8.2 MG/DL (8.8-10.2); CREATININE FOR GFR 1.61 MG/DL (0.70-1.30); GLOMERULAR FILTRATION RATE 43.7 (>35); POTASSIUM SERUM 4.6 MEQ/L (3.5-5.1)
[2022-02-24] MEDS: BUDESONIDE 0.25 MG/2 ML INHALATION SUSPENSION INH SCH ×2 (07:48→19:16)
[2022-02-24] MEDS: CALCITRIOL 0.25 MCG CAP (S0169) PO SCH (08:34)
[2022-02-24] MEDS: FLUCONAZOLE 100 MG TAB PO SCH (08:34)
[2022-02-24] MEDS: metroNIDAZOLE (FLAGYL) 500MG TABLET PO SCH ×3 (08:34→20:28)
[2022-02-24] MEDS: PANTOPRAZOLE 40MG TAB (PROTONIX) PO SCH (08:34)
[2022-02-24] MEDS ORDERED: predniSONE 10 MG TAB PO SCH (09:00)
[2022-02-24] MEDS: GASTROGRAFIN SOLUTION 30ML PO SCH ×2 (10:08→10:40)
[2022-02-24] MEDS ORDERED: ISOVUE-370 76% 100ML VIAL As Ordered ONE (11:20)
[2022-02-24 14:00] VITALS: BP 120/54
[2022-02-24 20:01] VITALS: BP 121/55
[2022-02-24] MEDS: SIMVASTATIN 20 MG TAB PO SCH (20:25)
[2022-02-24] MEDS: TAMSULOSIN 0.4 MG CAP PO SCH (20:25)
[2022-02-24] MEDS: SENOKOT S TAB PO SCH (20:25)
[2022-02-24] MEDS: LITHIUM CARBONATE 300 MG CAP PO SCH (20:25)
[2022-02-24] MEDS ORDERED: traZODone 25MG PER 1/2 TABLET PO ONE (22:30)
[2022-02-24] MEDS: RAMELTEON 8 MG TAB (ROZEREM) PO PRN (22:32)
[2022-02-25] MEDS: SODIUM CHLORIDE HYPERTONIC 3% 15ML NEB SOL INH SCH ×6 (03:27→23:35)
[2022-02-25] MEDS: ALBUTEROL SULFATE 2.5 MG/0.5 ML INH NEB SOLN NEB SCH ×6 (03:27→23:35)
[2022-02-25] MEDS: CIPROFLOXACIN 500MG TABLET PO SCH ×2 (05:04→18:35)
[2022-02-25] MEDS: HEPARIN SOD (PORCINE) 5000UNITS/ML 1ML VIAL/SYRINGE SQ SCH ×3 (05:04→21:54)
[2022-02-25] MEDS: SODIUM CHLORIDE 0.9% INJ 10 ML SYR IV SCH ×2 (05:05→18:36)
[2022-02-25 05:23] VITALS: BP 115/55
[2022-02-25 05:29] LABS: HEMATOCRIT 24.8 % (42.0-52.0); HEMOGLOBIN 7.9 g/dl (13.5-17.5); MEAN CORPUSCULAR HEMOGLOBIN 31.1 pg (27.0-33.0); MEAN CORPUSCULAR HGB CONC 31.9 g/dl (32.0-36.5); MEAN CORPUSCULAR VOLUME 97.6 fl (80.0-96.0); PLATELET COUNT, AUTOMATED 337 10^3/uL (150-450); RED BLOOD COUNT 2.54 10^6/uL (4.30-6.10); WHITE BLOOD COUNT 16.3 10^3/uL (4.0-10.0)
[2022-02-25 05:55] LABS: CALCIUM LEVEL 8.1 MG/DL (8.8-10.2); CREATININE FOR GFR 1.61 MG/DL (0.70-1.30); GLOMERULAR FILTRATION RATE 43.7 (>35); POTASSIUM SERUM 5.2 MEQ/L (3.5-5.1)
[2022-02-25] MEDS: BUDESONIDE 0.25 MG/2 ML INHALATION SUSPENSION INH SCH ×2 (07:48→19:18)
[2022-02-25] MEDS ORDERED: predniSONE 10 MG TAB PO SCH (09:00)
[2022-02-25] MEDS: CALCITRIOL 0.25 MCG CAP (S0169) PO SCH (09:12)
[2022-02-25] MEDS: metroNIDAZOLE (FLAGYL) 500MG TABLET PO SCH ×3 (09:12→21:53)
[2022-02-25] MEDS: PANTOPRAZOLE 40MG TAB (PROTONIX) PO SCH (09:12)
[2022-02-25] MEDS: FLUCONAZOLE 100 MG TAB PO SCH (09:12)
[2022-02-25 14:00] VITALS: BP 101/49
[2022-02-25] MEDS: RAMELTEON 8 MG TAB (ROZEREM) PO PRN (21:53)
[2022-02-25] MEDS: LITHIUM CARBONATE 300 MG CAP PO SCH (21:53)
[2022-02-25] MEDS: SIMVASTATIN 20 MG TAB PO SCH (21:53)
[2022-02-25] MEDS: TAMSULOSIN 0.4 MG CAP PO SCH (21:53)
[2022-02-25] MEDS: SENOKOT S TAB PO SCH (21:53)
[2022-02-25 22:00] VITALS: BP 104/50
[2022-02-26] VITALS (9 sets, daily range): BP systolic 108–134; BP diastolic 49–77
[2022-02-26] MEDS: CIPROFLOXACIN 500MG TABLET PO SCH ×2 (06:08→18:14)
[2022-02-26] MEDS: HEPARIN SOD (PORCINE) 5000UNITS/ML 1ML VIAL/SYRINGE SQ SCH ×3 (06:08→21:26)
[2022-02-26] MEDS: SODIUM CHLORIDE 0.9% INJ 10 ML SYR IV SCH ×2 (06:09→18:48)
[2022-02-26 06:27] LABS: HEMATOCRIT 24.2 % (42.0-52.0); HEMOGLOBIN 7.8 g/dl (13.5-17.5); MEAN CORPUSCULAR HEMOGLOBIN 31.8 pg (27.0-33.0); MEAN CORPUSCULAR HGB CONC 32.2 g/dl (32.0-36.5); MEAN CORPUSCULAR VOLUME 98.8 fl (80.0-96.0); PLATELET COUNT, AUTOMATED 352 10^3/uL (150-450); RED BLOOD COUNT 2.45 10^6/uL (4.30-6.10); WHITE BLOOD COUNT 16.6 10^3/uL (4.0-10.0)
[2022-02-26 06:59] LABS: CALCIUM LEVEL 8.2 MG/DL (8.8-10.2); CREATININE FOR GFR 1.67 MG/DL (0.70-1.30); GLOMERULAR FILTRATION RATE 41.9 (>35)
[2022-02-26] MEDS: ALBUTEROL SULFATE 2.5 MG/0.5 ML INH NEB SOLN NEB SCH ×2 (07:41→11:07)
[2022-02-26] MEDS: SODIUM CHLORIDE HYPERTONIC 3% 15ML NEB SOL INH SCH ×2 (07:41→11:07)
[2022-02-26] MEDS: BUDESONIDE 0.25 MG/2 ML INHALATION SUSPENSION INH SCH (07:41)
[2022-02-26] MEDS: CALCITRIOL 0.25 MCG CAP (S0169) PO SCH (09:38)
[2022-02-26] MEDS: metroNIDAZOLE (FLAGYL) 500MG TABLET PO SCH ×3 (09:38→21:26)
[2022-02-26] MEDS: FLUCONAZOLE 100 MG TAB PO SCH (09:38)
[2022-02-26] MEDS: PANTOPRAZOLE 40MG TAB (PROTONIX) PO SCH (09:38)
[2022-02-26] MEDS: TIOTROPIUM INHALER/CAPSULE (SPIRIVA) INH SCH (13:01)
[2022-02-26] MEDS: ADVAIR HFA 230/21MCG INHALER INH SCH ×2 (13:04→20:28)
[2022-02-26] MEDS ORDERED: FUROSEMIDE 40MG/4ML VIAL (J1940) IV ONE (14:00)
[2022-02-26] MEDS: ASPIRIN 81MG ENTERIC TABLET PO SCH (15:21)
[2022-02-26] MEDS: SODIUM CHLORIDE 0.9% INJ 10 ML SYR IV PRN (18:45)
[2022-02-26] MEDS: SENOKOT S TAB PO SCH (21:25)
[2022-02-26] MEDS: SIMVASTATIN 20 MG TAB PO SCH (21:25)
[2022-02-26] MEDS: LITHIUM CARBONATE 300 MG CAP PO SCH (21:26)
[2022-02-26] MEDS: TAMSULOSIN 0.4 MG CAP PO SCH (21:26)
[2022-02-26] MEDS: RAMELTEON 8 MG TAB (ROZEREM) PO PRN (21:34)
[2022-02-27] MEDS: HEPARIN SOD (PORCINE) 5000UNITS/ML 1ML VIAL/SYRINGE SQ SCH ×3 (05:49→22:04)
[2022-02-27] MEDS: CIPROFLOXACIN 500MG TABLET PO SCH ×2 (05:49→17:00)
[2022-02-27] MEDS: SODIUM CHLORIDE 0.9% INJ 10 ML SYR IV SCH ×2 (05:49→17:00)
[2022-02-27 06:15] VITALS: BP 113/55
[2022-02-27 06:30] LABS: HEMATOCRIT 29.7 % (42.0-52.0); HEMOGLOBIN 9.6 g/dl (13.5-17.5); MEAN CORPUSCULAR HEMOGLOBIN 30.3 pg (27.0-33.0); MEAN CORPUSCULAR HGB CONC 32.3 g/dl (32.0-36.5); MEAN CORPUSCULAR VOLUME 93.7 fl (80.0-96.0); PLATELET COUNT, AUTOMATED 345 10^3/uL (150-450); RED BLOOD COUNT 3.17 10^6/uL (4.30-6.10); WHITE BLOOD COUNT 13.3 10^3/uL (4.0-10.0)
[2022-02-27 06:42] LABS: CALCIUM LEVEL 8.6 MG/DL (8.8-10.2); CREATININE FOR GFR 1.79 MG/DL (0.70-1.30); GLOMERULAR FILTRATION RATE 38.7 (>35); POTASSIUM SERUM 4.7 MEQ/L (3.5-5.1)
[2022-02-27] MEDS: TIOTROPIUM INHALER/CAPSULE (SPIRIVA) INH SCH (08:12)
[2022-02-27] MEDS: ADVAIR HFA 230/21MCG INHALER INH SCH ×2 (08:13→20:14)
[2022-02-27] MEDS: FLUCONAZOLE 100 MG TAB PO SCH (09:29)
[2022-02-27] MEDS: ASPIRIN 81MG ENTERIC TABLET PO SCH (09:30)
[2022-02-27] MEDS: PANTOPRAZOLE 40MG TAB (PROTONIX) PO SCH (09:30)
[2022-02-27] MEDS: CALCITRIOL 0.25 MCG CAP (S0169) PO SCH (09:30)
[2022-02-27] MEDS: metroNIDAZOLE (FLAGYL) 500MG TABLET PO SCH ×3 (09:30→22:04)
[2022-02-27 14:00] VITALS: BP 104/51
[2022-02-27] MEDS: LITHIUM CARBONATE 300 MG CAP PO SCH (22:04)
[2022-02-27] MEDS: TAMSULOSIN 0.4 MG CAP PO SCH (22:04)
[2022-02-27] MEDS: SIMVASTATIN 20 MG TAB PO SCH (22:04)
[2022-02-27] MEDS: SENOKOT S TAB PO SCH (22:04)
[2022-02-28] MEDS: CIPROFLOXACIN 500MG TABLET PO SCH (05:02)
[2022-02-28] MEDS: SODIUM CHLORIDE 0.9% INJ 10 ML SYR IV SCH ×2 (05:05→18:06)
[2022-02-28] MEDS: HEPARIN SOD (PORCINE) 5000UNITS/ML 1ML VIAL/SYRINGE SQ SCH ×3 (05:05→21:09)
[2022-02-28 06:00] VITALS: BP 104/51
[2022-02-28 06:51] LABS: HEMATOCRIT 28.8 % (42.0-52.0); HEMOGLOBIN 9.5 g/dl (13.5-17.5); MEAN CORPUSCULAR HEMOGLOBIN 31.4 pg (27.0-33.0); PLATELET COUNT, AUTOMATED 353 10^3/uL (150-450); RED BLOOD COUNT 3.03 10^6/uL (4.30-6.10); WHITE BLOOD COUNT 12.3 10^3/uL (4.0-10.0)
[2022-02-28 07:13] LABS: CALCIUM LEVEL 8.4 MG/DL (8.8-10.2); CREATININE FOR GFR 1.8 MG/DL (0.70-1.30); GLOMERULAR FILTRATION RATE 38.5 (>35); POTASSIUM SERUM 5.2 MEQ/L (3.5-5.1)
[2022-02-28] MEDS: TIOTROPIUM INHALER/CAPSULE (SPIRIVA) INH SCH (08:05)
[2022-02-28] MEDS: ADVAIR HFA 230/21MCG INHALER INH SCH ×2 (08:05→19:03)
[2022-02-28] MEDS: ASPIRIN 81MG ENTERIC TABLET PO SCH (09:34)
[2022-02-28] MEDS: PANTOPRAZOLE 40MG TAB (PROTONIX) PO SCH (09:34)
[2022-02-28] MEDS: CALCITRIOL 0.25 MCG CAP (S0169) PO SCH (09:34)
[2022-02-28] MEDS: FLUCONAZOLE 100 MG TAB PO SCH (09:35)
[2022-02-28] MEDS ORDERED: SENN-52 PO (11:44)
[2022-02-28] MEDS ORDERED: ACET1TAB55 PO (11:44)
[2022-02-28] MEDS: SENOKOT S TAB PO SCH (21:09)
[2022-02-28] MEDS: LITHIUM CARBONATE 300 MG CAP PO SCH (21:09)
[2022-02-28] MEDS: SIMVASTATIN 20 MG TAB PO SCH (21:09)
[2022-02-28] MEDS: TAMSULOSIN 0.4 MG CAP PO SCH (21:10)
[2022-02-28] MEDS: RAMELTEON 8 MG TAB (ROZEREM) PO PRN (22:26)
[2022-03-01] MEDS: SODIUM CHLORIDE 0.9% INJ 10 ML SYR IV SCH ×2 (05:34→18:43)
[2022-03-01] MEDS: HEPARIN SOD (PORCINE) 5000UNITS/ML 1ML VIAL/SYRINGE SQ SCH ×3 (05:35→21:06)
[2022-03-01 06:00] VITALS: BP 106/50
[2022-03-01 06:25] LABS: HEMATOCRIT 31.4 % (42.0-52.0); HEMOGLOBIN 9.9 g/dl (13.5-17.5); MEAN CORPUSCULAR HEMOGLOBIN 30.5 pg (27.0-33.0); MEAN CORPUSCULAR HGB CONC 31.5 g/dl (32.0-36.5); MEAN CORPUSCULAR VOLUME 96.6 fl (80.0-96.0); PLATELET COUNT, AUTOMATED 390 10^3/uL (150-450); RED BLOOD COUNT 3.25 10^6/uL (4.30-6.10); WHITE BLOOD COUNT 11.6 10^3/uL (4.0-10.0)
[2022-03-01 06:51] LABS: CALCIUM LEVEL 8.7 MG/DL (8.8-10.2); CREATININE FOR GFR 1.79 MG/DL (0.70-1.30); GLOMERULAR FILTRATION RATE 38.7 (>35); POTASSIUM SERUM 5.5 MEQ/L (3.5-5.1)
[2022-03-01] MEDS: TIOTROPIUM INHALER/CAPSULE (SPIRIVA) INH SCH (07:40)
[2022-03-01] MEDS: ADVAIR HFA 230/21MCG INHALER INH SCH ×2 (07:40→19:57)
[2022-03-01] MEDS: PANTOPRAZOLE 40MG TAB (PROTONIX) PO SCH (08:45)
[2022-03-01] MEDS: FLUCONAZOLE 100 MG TAB PO SCH (08:45)
[2022-03-01] MEDS: CALCITRIOL 0.25 MCG CAP (S0169) PO SCH (08:45)
[2022-03-01] MEDS: ASPIRIN 81MG ENTERIC TABLET PO SCH (08:45)
[2022-03-01] MEDS ORDERED: FUROSEMIDE 100MG/10ML VIAL (J1940) IV ONE (10:00)
[2022-03-01] MEDS: SENOKOT S TAB PO SCH (21:05)
[2022-03-01] MEDS: SIMVASTATIN 20 MG TAB PO SCH (21:05)
[2022-03-01] MEDS: TAMSULOSIN 0.4 MG CAP PO SCH (21:06)
[2022-03-01] MEDS: LITHIUM CARBONATE 300 MG CAP PO SCH (21:06)
[2022-03-02 05:30] VITALS: BP 104/49
[2022-03-02] MEDS: SODIUM CHLORIDE 0.9% INJ 10 ML SYR IV SCH ×2 (05:50→17:13)
[2022-03-02] MEDS: HEPARIN SOD (PORCINE) 5000UNITS/ML 1ML VIAL/SYRINGE SQ SCH ×3 (05:50→21:58)
[2022-03-02 06:40] LABS: CALCIUM LEVEL 8.7 MG/DL (8.8-10.2); CREATININE FOR GFR 1.94 MG/DL (0.70-1.30); GLOMERULAR FILTRATION RATE 35.3 (>35)
[2022-03-02] MEDS: ADVAIR HFA 230/21MCG INHALER INH SCH ×2 (07:26→20:17)
[2022-03-02] MEDS: TIOTROPIUM INHALER/CAPSULE (SPIRIVA) INH SCH (07:26)
[2022-03-02] MEDS: ASPIRIN 81MG ENTERIC TABLET PO SCH (09:15)
[2022-03-02] MEDS: PANTOPRAZOLE 40MG TAB (PROTONIX) PO SCH (09:15)
[2022-03-02] MEDS: CALCITRIOL 0.25 MCG CAP (S0169) PO SCH (09:15)
[2022-03-02] MEDS: SIMVASTATIN 20 MG TAB PO SCH (20:51)
[2022-03-02] MEDS: SENOKOT S TAB PO SCH (20:51)
[2022-03-02] MEDS: LITHIUM CARBONATE 300 MG CAP PO SCH (20:51)
[2022-03-02] MEDS: TAMSULOSIN 0.4 MG CAP PO SCH (20:51)
[2022-03-03] MEDS: HEPARIN SOD (PORCINE) 5000UNITS/ML 1ML VIAL/SYRINGE SQ SCH ×2 (05:45→14:00)
[2022-03-03] MEDS: SODIUM CHLORIDE 0.9% INJ 10 ML SYR IV SCH (06:07)
[2022-03-03 06:30] VITALS: BP 105/55
[2022-03-03] MEDS: TIOTROPIUM INHALER/CAPSULE (SPIRIVA) INH SCH (07:42)
[2022-03-03] MEDS: ADVAIR HFA 230/21MCG INHALER INH SCH (07:44)
[2022-03-03] MEDS: ASPIRIN 81MG ENTERIC TABLET PO SCH (09:01)
[2022-03-03] MEDS: PANTOPRAZOLE 40MG TAB (PROTONIX) PO SCH (09:01)
[2022-03-03] MEDS: CALCITRIOL 0.25 MCG CAP (S0169) PO SCH (09:02)
== END 2022-03-03 14:48 | disposition home health service (06) | DRG 853 ==
LOC: EDBD 12:38 → M ED 12:38 → M SDC 19:56 → M ED INP 20:59 → M ICU 02-15 01:37 → M PCU 02-17 16:33 → M ICU 02-18 18:38 → M PCU 02-20 18:18 → M MSPAV 02-23 15:06
PROVIDERS: ADMIT Family Medicine; ATTEND Internal Medicine Nephrology
PROC: 0DBH0ZZ Excision of Cecum, Open Approach (ICD-10-PCS; 2022-02-19)
PROC: 0DT80ZZ Resection of Small Intestine, Open Approach (ICD-10-PCS; 2022-02-19)
PROC: 02HV33Z Insertion of Infusion Device into Superior Vena Cava, Percutaneous Approach (ICD-10-PCS; principal; 2022-02-20 14:38)
DX: A41.9 Sepsis, unspecified organism (principal); R65.21 Severe sepsis with septic shock; K56.2 Volvulus; K55.029 Acute infarction of small intestine, extent unspecified; K63.1 Perforation of intestine (nontraumatic); J96.01 Acute respiratory failure with hypoxia; E87.2 Acidosis; I13.0 Hypertensive heart and chronic kidney disease with heart failure and stage 1 through stage 4 chronic kidney disease, or unspecified chronic kidney disease; I50.42 Chronic combined systolic (congestive) and diastolic (congestive) heart failure; K56.601 Complete intestinal obstruction, unspecified as to cause; D62 Acute posthemorrhagic anemia; N17.9 Acute kidney failure, unspecified; R18.8 Other ascites; J98.11 Atelectasis; K91.89 Other postprocedural complications and disorders of digestive system; J44.1 Chronic obstructive pulmonary disease with (acute) exacerbation; Z20.822 Contact with and (suspected) exposure to COVID-19; N18.32 Chronic kidney disease, stage 3b; F31.9 Bipolar disorder, unspecified; E78.00 Pure hypercholesterolemia, unspecified; I25.10 Atherosclerotic heart disease of native coronary artery without angina pectoris; E87.5 Hyperkalemia; K66.0 Peritoneal adhesions (postprocedural) (postinfection); G47.33 Obstructive sleep apnea (adult) (pediatric); Z95.0 Presence of cardiac pacemaker; Z95.5 Presence of coronary angioplasty implant and graft; K56.41 Fecal impaction; D72.829 Elevated white blood cell count, unspecified; T38.0X5A Adverse effect of glucocorticoids and synthetic analogues, initial encounter; M19.90 Unspecified osteoarthritis, unspecified site; F17.210 Nicotine dependence, cigarettes, uncomplicated; R91.8 Other nonspecific abnormal finding of lung field; N40.1 Benign prostatic hyperplasia with lower urinary tract symptoms; E55.9 Vitamin D deficiency, unspecified; Z96.643 Presence of artificial hip joint, bilateral; Z90.49 Acquired absence of other specified parts of digestive tract; Z79.82 Long term (current) use of aspirin; Z79.891 Long term (current) use of opiate analgesic; Z79.899 Other long term (current) drug therapy; Z88.0 Allergy status to penicillin; Z88.1 Allergy status to other antibiotic agents; Z88.8 Allergy status to other drugs, medicaments and biological substances

== ENCOUNTER → 2022-05-12 | Outpatient (CLI) | payer MEDICARE ==
[~2022-05-12] MED LIST changes: +ACET1TAB55 PO; +ASPI81TA26 PO; +CLIN-250 PO; +OXYC1TAB23 PO; +ROCA0.5C PO; +SENN-52 PO
[2022-05-12 13:58] LABS: HEMATOCRIT 36.2 % (42.0-52.0); HEMOGLOBIN 11.5 g/dl (13.5-17.5); MEAN CORPUSCULAR HEMOGLOBIN 31.8 pg (27.0-33.0); MEAN CORPUSCULAR HGB CONC 31.8 g/dl (32.0-36.5); PLATELET COUNT, AUTOMATED 217 10^3/uL (150-450); RED BLOOD COUNT 3.62 10^6/uL (4.30-6.10)
[2022-05-12 14:44] LABS: HEMOGLOBIN A1c 4.8 %
[2022-05-12 15:08] LABS: CREATININE FOR GFR 1.94 MG/DL (0.70-1.30); GLOMERULAR FILTRATION RATE 35.3 (>35); POTASSIUM SERUM 4.8 MEQ/L (3.5-5.1)
[2022-05-12 15:09] LABS: ALBUMIN 3.9 GM/DL (3.2-5.2); BILIRUBIN,TOTAL 0.3 MG/DL (0.2-1.0); C REACTIVE PROTEIN QUANTITATIV 0.3 MG/DL (0.00-0.30); CALCIUM LEVEL 9.8 MG/DL (8.8-10.2); CHOLESTEROL RISK RATIO 2.269 (<5); FREE T4 0.9 NG/DL (0.76-1.46); THYROID STIMULATING HORMONE 0.766 uIU/ML (0.358-3.740)
[2022-05-12 15:32] LABS: TOTAL 25(OH) VITAMIN D 30.2 NG/ML (30.0-100.0)
== END ==
LOC: M PLALAB 11:13
PROVIDERS: ATTEND Internal Medicine Hematology
DX: E78.00 Pure hypercholesterolemia, unspecified (principal)

== ENCOUNTER → 2022-06-12 | Outpatient (CLI) | payer MEDICARE ==
[2022-06-12 10:31] LABS: BASO # 0.1 10^3/uL (0.0-0.2); EOS # 0.5 10^3/uL (0.0-0.5); EOS % 7.5 % (0.0-3.0); HEMOGLOBIN 11.1 g/dl (13.5-17.5); LYMPH # 2.4 10^3/uL (1.5-5.0); LYMPH % 35.6 % (24.0-44.0); MEAN CORPUSCULAR HEMOGLOBIN 32.1 pg (27.0-33.0); MEAN CORPUSCULAR HGB CONC 31.7 g/dl (32.0-36.5); MEAN CORPUSCULAR VOLUME 101.2 fl (80.0-96.0); MONO # 0.4 10^3/uL (0.0-0.8); NEUTROPHILS # 3.4 10^3/uL (1.5-8.5); NEUTROPHILS % 49.6 % (36.0-66.0); PLATELET COUNT, AUTOMATED 203 10^3/uL (150-450); RED BLOOD COUNT 3.46 10^6/uL (4.30-6.10); WHITE BLOOD COUNT 6.8 10^3/uL (4.0-10.0)
[2022-06-12 12:12] LABS: CALCIUM LEVEL 9.1 MG/DL (8.8-10.2); GLOMERULAR FILTRATION RATE 34.1 (>35); POTASSIUM SERUM 4.6 MEQ/L (3.5-5.1)
[2022-06-12 12:13] LABS: ALBUMIN 3.9 GM/DL (3.2-5.2); BILIRUBIN,TOTAL 0.3 MG/DL (0.2-1.0); LITHIUM LEVEL 1.05 MEQ/L (0.60-1.20); THYROID STIMULATING HORMONE 0.932 uIU/ML (0.358-3.740); TOTAL PROTEIN 6.7 GM/DL (6.4-8.2)
[2022-06-12 13:08] LABS: CORTISOL AM 19.4 UG/DL (4.3-22.4)
== END ==
LOC: M PLALAB 07:35
PROVIDERS: ATTEND Internal Medicine Hematology
DX: R53.1 Weakness (principal)

== ENCOUNTER → 2022-07-25 | Outpatient (CLI) | payer MEDICARE ==
[~2022-07-25] MED LIST changes: +CLOP75TA99 PO; -PLAV1TAB2 PO
[2022-07-25 15:41] LABS: BASO # 0.1 10^3/uL (0.0-0.2); EOS # 0.4 10^3/uL (0.0-0.5); EOS % 5.8 % (0.0-3.0); HEMATOCRIT 35.5 % (42.0-52.0); HEMOGLOBIN 11.1 g/dl (13.5-17.5); LYMPH # 3.1 10^3/uL (1.5-5.0); MEAN CORPUSCULAR HEMOGLOBIN 32.2 pg (27.0-33.0); MEAN CORPUSCULAR HGB CONC 31.3 g/dl (32.0-36.5); MEAN CORPUSCULAR VOLUME 102.9 fl (80.0-96.0); MONO # 0.4 10^3/uL (0.0-0.8); MONO % 6.2 % (2.0-8.0); NEUTROPHILS # 3.1 10^3/uL (1.5-8.5); NEUTROPHILS % 43.9 % (36.0-66.0); PLATELET COUNT, AUTOMATED 217 10^3/uL (150-450); RED BLOOD COUNT 3.45 10^6/uL (4.30-6.10); WHITE BLOOD COUNT 7.1 10^3/uL (4.0-10.0)
[2022-07-25 15:55] LABS: LITHIUM LEVEL < 1.00 MEQ/L (0.60-1.20)
[2022-07-25 16:01] LABS: ALKALINE PHOSPHATASE 62 U/L (46-116); ALT/SGPT < 9 U/L (7.0-40); AST/SGOT 8 U/L (<34); BILIRUBIN,TOTAL 0.3 MG/DL (0.3-1.2); BLOOD UREA NITROGEN 33 MG/DL (9-23); CALCIUM LEVEL 9.5 MG/DL (8.3-10.6); CARBON DIOXIDE LEVEL 23 MMOL/L (20-31); CHLORIDE LEVEL 110 MMOL/L (98-107); CREATININE FOR GFR 2.02 MG/DL (0.70-1.30); FOLATE 9.67 NG/ML (>5.4); FREE THYROXINE INDEX 2.8 % (1.4-3.8); GLOMERULAR FILTRATION RATE 33.7 (>35); GLUCOSE, FASTING 93 MG/DL (74-106); POTASSIUM SERUM 4.8 MMOL/L (3.5-5.1); SODIUM LEVEL 141 MMOL/L (136-145); T UPTAKE 39.6 % (22.5-37.0); THYROID STIMULATING HORMONE 1.881 uIU/ML (0.55-4.78); THYROXINE (T4) 7.1 UG/DL (4.5-10.9); TOTAL PROTEIN 6.5 G/DL (5.7-8.2); TOTAL PROTEIN 6.5 GM/DL (6.4-8.2); VITAMIN B12 LEVEL 1170 PG/ML (211-911)
[2022-07-25 19:26] LABS: HEMOGLOBIN A1c 4.5 % (4.0-6.0)
[2022-07-29 11:38] LABS: ALBUMIN 4.22 GM/DL (3.29-5.55); ALBUMIN % 64.9 % (55.8-66.1); ALPHA-1-GLOBULIN % 4.1 % (2.9-4.9); ALPHA-1-GLOBULINS 0.27 GM/DL (0.17-0.41); ALPHA-2-GLOBULINS 0.63 GM/DL (0.42-0.99); ALPHA-2-GLOBULINS % 9.7 % (7.1-11.8); BETA-1-GLOBULINS 0.34 GM/DL (0.28-0.60); BETA-1-GLOBULINS % 5.3 % (4.7-7.2); BETA-2-GLOBULINS 0.22 GM/DL (0.19-0.55); BETA-2-GLOBULINS % 3.4 % (3.2-6.5); GAMMA GLOBULIN % 12.6 % (11.1-18.8); GAMMA GLOBULINS 0.82 GM/DL (0.65-1.58)
== END ==
LOC: M PLALAB 13:38
PROVIDERS: ATTEND Psychiatry & Neurology Neurology
DX: E11.9 Type 2 diabetes mellitus without complications (principal)

== ENCOUNTER → 2022-08-19 | Outpatient (CLI) | payer MEDICARE | LOC: M RAD 15:09 | PROVIDERS: ATTEND Psychiatry & Neurology Neurology | DX: R26.81 Unsteadiness on feet (principal); M48.02 Spinal stenosis, cervical region; M47.814 Spondylosis without myelopathy or radiculopathy, thoracic region; M48.062 Spinal stenosis, lumbar region with neurogenic claudication ==

== ENCOUNTER → 2022-11-10 | Outpatient (CLI) | payer MEDICARE ==
[2022-11-10 15:05] LABS: HEMATOCRIT 36.3 % (42.0-52.0); HEMOGLOBIN 11.3 g/dl (13.5-17.5); MEAN CORPUSCULAR HEMOGLOBIN 32.5 pg (27.0-33.0); MEAN CORPUSCULAR HGB CONC 31.1 g/dl (32.0-36.5); MEAN CORPUSCULAR VOLUME 104.3 fl (80.0-96.0); PLATELET COUNT, AUTOMATED 205 10^3/uL (150-450); RED BLOOD COUNT 3.48 10^6/uL (4.30-6.10); WHITE BLOOD COUNT 6.9 10^3/uL (4.0-10.0)
[2022-11-10 15:39] LABS: C REACTIVE PROTEIN QUANTITATIV < 0.40 MG/DL (<1.0)
[2022-11-10 15:40] LABS: HEMOGLOBIN A1c 4.5 % (4.0-6.0)
[2022-11-10 15:41] LABS: THYROID STIMULATING HORMONE 2.213 uIU/ML (0.55-4.78)
[2022-11-10 15:42] LABS: FREE T4 0.82 NG/DL (0.89-1.76); TOTAL 25(OH) VITAMIN D 29.7 NG/ML (20.0-100.0); VITAMIN B12 LEVEL 461 PG/ML (211-911)
[2022-11-10 15:50] LABS: ALBUMIN 3.7 G/DL (3.2-5.2); ALKALINE PHOSPHATASE 68 U/L (46-116); ALT/SGPT < 9 U/L (7.0-40); AST/SGOT 12 U/L (<34); BILIRUBIN,TOTAL 0.4 MG/DL (0.3-1.2); BLOOD UREA NITROGEN 36 MG/DL (9-23); CALCIUM LEVEL 8.8 MG/DL (8.3-10.6); CARBON DIOXIDE LEVEL 23 MMOL/L (20-31); CHLORIDE LEVEL 111 MMOL/L (98-107); CHOLESTEROL LEVEL 116 MG/DL (<200); CHOLESTEROL RISK RATIO 2.03 (<5); CREATININE FOR GFR 1.68 MG/DL (0.70-1.30); GLOMERULAR FILTRATION RATE 41.5 (>35); GLUCOSE, FASTING 75 MG/DL (74-106); HDL CHOLESTEROL 56.9 MG/DL (>40); LDL CHOLESTEROL 45.5 MG/DL (<100); NON-HDL-C 59.1 MG/DL; SODIUM LEVEL 141 MMOL/L (136-145); TOTAL PROTEIN 6.2 G/DL (5.7-8.2); TRIGLYCERIDES LEVEL 68 MG/DL (<150)
[2022-11-10 15:55] LABS: POTASSIUM SERUM 6.2 MMOL/L (3.5-5.1)
== END ==
LOC: M PLALAB 11:36
PROVIDERS: ATTEND Internal Medicine Hematology
DX: E78.00 Pure hypercholesterolemia, unspecified (principal); Z79.899 Other long term (current) drug therapy

== ENCOUNTER → 2022-11-12 | Outpatient (CLI) | payer MEDICARE ==
[2022-11-12 13:26] LABS: CALCIUM LEVEL 8.9 MG/DL (8.3-10.6); CREATININE FOR GFR 1.69 MG/DL (0.70-1.30); GLOMERULAR FILTRATION RATE 41.3 (>35); POTASSIUM SERUM 5.8 MMOL/L (3.5-5.1)
[2022-11-12 13:34] LABS: CREATININE, URINE 68.2 MG/DL; MAU/CREAT RATIO 7.3 MCG/MG (0.0-30.0)
== END ==
LOC: M LAB 10:32
PROVIDERS: ATTEND Internal Medicine Hematology
DX: E87.5 Hyperkalemia (principal); E78.00 Pure hypercholesterolemia, unspecified

== ENCOUNTER → 2022-11-19 | Outpatient (CLI) | payer MEDICARE ==
[2022-11-19 14:05] LABS: CALCIUM LEVEL 9.3 MG/DL (8.3-10.6); CREATININE FOR GFR 1.99 MG/DL (0.70-1.30); GLOMERULAR FILTRATION RATE 34.2 (>35); POTASSIUM SERUM 5.1 MMOL/L (3.5-5.1)
== END ==
LOC: M PLALAB 11:40
PROVIDERS: ATTEND Internal Medicine Hematology
DX: E87.5 Hyperkalemia (principal)

== ENCOUNTER → 2023-05-05 | Outpatient (CLI) | payer MEDICARE ==
[2023-05-05 13:47] LABS: HEMATOCRIT 34.9 % (42.0-52.0); HEMOGLOBIN 11.2 g/dl (13.5-17.5); MEAN CORPUSCULAR HEMOGLOBIN 32.6 pg (27.0-33.0); MEAN CORPUSCULAR HGB CONC 32.1 g/dl (32.0-36.5); MEAN CORPUSCULAR VOLUME 101.5 fl (80.0-96.0); PLATELET COUNT, AUTOMATED 216 10^3/uL (150-450); RED BLOOD COUNT 3.44 10^6/uL (4.30-6.10); WHITE BLOOD COUNT 7.8 10^3/uL (4.0-10.0)
[2023-05-05 14:24] LABS: CREATININE FOR GFR 1.86 MG/DL (0.70-1.30); GLOMERULAR FILTRATION RATE 36.9 (>35); LITHIUM LEVEL 0.89 MMOL/L (1.0-1.20); THYROID STIMULATING HORMONE 1.52 uIU/ML (0.55-4.78)
== END ==
LOC: M PLALAB 11:07
PROVIDERS: ATTEND Psychiatry & Neurology Psychiatry
DX: Z79.899 Other long term (current) drug therapy (principal)

== ENCOUNTER → 2023-09-17 | Outpatient (CLI) | payer MEDICARE ==
[2023-09-17 13:25] LABS: HEMATOCRIT 37.6 % (42.0-52.0); HEMOGLOBIN 12.1 g/dl (13.5-17.5); MEAN CORPUSCULAR HEMOGLOBIN 32.6 pg (27.0-33.0); MEAN CORPUSCULAR HGB CONC 32.2 g/dl (32.0-36.5); MEAN CORPUSCULAR VOLUME 101.3 fl (80.0-96.0); PLATELET COUNT, AUTOMATED 232 10^3/uL (150-450); RED BLOOD COUNT 3.71 10^6/uL (4.30-6.10); WHITE BLOOD COUNT 8.8 10^3/uL (4.0-10.0)
[2023-09-17 13:34] LABS: THYROID STIMULATING HORMONE 2.633 uIU/ML (0.55-4.78); TOTAL 25(OH) VITAMIN D 29.2 NG/ML (20.0-100.0)
[2023-09-17 13:35] LABS: HEMOGLOBIN A1c 4.8 % (4.0-6.0); VITAMIN B12 LEVEL 570 PG/ML (211-911)
[2023-09-17 13:36] LABS: C REACTIVE PROTEIN QUANTITATIV < 0.40 MG/DL (<1.0); FREE T4 0.83 NG/DL (0.89-1.76)
[2023-09-17 13:38] LABS: ALBUMIN 3.8 G/DL (3.2-5.2); ALKALINE PHOSPHATASE 108 U/L (46-116); ALT/SGPT < 9 U/L (7.0-40); AST/SGOT 11 U/L (<34); BILIRUBIN,TOTAL 0.4 MG/DL (0.3-1.2); BLOOD UREA NITROGEN 29 MG/DL (9-23); CALCIUM LEVEL 8.9 MG/DL (8.3-10.6); CARBON DIOXIDE LEVEL 24 MMOL/L (20-31); CHLORIDE LEVEL 113 MMOL/L (98-107); CHOLESTEROL LEVEL 129 MG/DL (<200); CHOLESTEROL RISK RATIO 2.17 (<5); CREATININE FOR GFR 1.65 MG/DL (0.70-1.30); GLOMERULAR FILTRATION RATE 42.4 (>35); GLUCOSE, FASTING 89 MG/DL (74-106); HDL CHOLESTEROL 59.2 MG/DL (>40); LDL CHOLESTEROL 55.6 MG/DL (<100); NON-HDL-C 69.8 MG/DL; POTASSIUM SERUM 5.4 MMOL/L (3.5-5.1); SODIUM LEVEL 144 MMOL/L (136-145); TOTAL PROTEIN 6.3 G/DL (5.7-8.2); TRIGLYCERIDES LEVEL 71 MG/DL (<150)
== END ==
LOC: M PLALAB 08:13
PROVIDERS: ATTEND Internal Medicine Hematology
DX: I25.10 Atherosclerotic heart disease of native coronary artery without angina pectoris (principal); Z79.899 Other long term (current) drug therapy

== ENCOUNTER → 2023-10-08 | Outpatient (CLI) | payer MEDICARE | LOC: M PAIN 08:00 | PROVIDERS: ATTEND Nurse Practitioner Family | DX: M79.18 Myalgia, other site (principal); G89.29 Other chronic pain; J44.9 Chronic obstructive pulmonary disease, unspecified; R73.01 Impaired fasting glucose; I25.10 Atherosclerotic heart disease of native coronary artery without angina pectoris; M19.90 Unspecified osteoarthritis, unspecified site; F31.9 Bipolar disorder, unspecified; G47.30 Sleep apnea, unspecified; E78.00 Pure hypercholesterolemia, unspecified; N18.30 Chronic kidney disease, stage 3 unspecified; I50.42 Chronic combined systolic (congestive) and diastolic (congestive) heart failure; N40.1 Benign prostatic hyperplasia with lower urinary tract symptoms; R33.9 Retention of urine, unspecified; E55.9 Vitamin D deficiency, unspecified; F17.210 Nicotine dependence, cigarettes, uncomplicated; Z79.01 Long term (current) use of anticoagulants; Z79.82 Long term (current) use of aspirin; Z79.899 Other long term (current) drug therapy; Z96.643 Presence of artificial hip joint, bilateral; Z95.0 Presence of cardiac pacemaker; Z88.8 Allergy status to other drugs, medicaments and biological substances ==

== ENCOUNTER → 2023-12-22 | Outpatient (CLI) | payer MEDICARE ==
[~2023-12-22] MED LIST changes: +TRIAMCINOLONE ACETONIDE SUSP 40MG/ML 1ML VIAL As Ordered ONE
== END ==
LOC: M PAIN 10:00
PROVIDERS: ATTEND Anesthesiology
DX: M79.18 Myalgia, other site (principal); G89.29 Other chronic pain; J44.9 Chronic obstructive pulmonary disease, unspecified; R73.01 Impaired fasting glucose; I25.10 Atherosclerotic heart disease of native coronary artery without angina pectoris; M19.90 Unspecified osteoarthritis, unspecified site; F31.9 Bipolar disorder, unspecified; E78.00 Pure hypercholesterolemia, unspecified; N18.30 Chronic kidney disease, stage 3 unspecified; I50.42 Chronic combined systolic (congestive) and diastolic (congestive) heart failure; N40.1 Benign prostatic hyperplasia with lower urinary tract symptoms; R33.9 Retention of urine, unspecified; E55.9 Vitamin D deficiency, unspecified; Z95.0 Presence of cardiac pacemaker; F17.210 Nicotine dependence, cigarettes, uncomplicated; Z79.82 Long term (current) use of aspirin; Z79.899 Other long term (current) drug therapy; Z79.01 Long term (current) use of anticoagulants; Z96.643 Presence of artificial hip joint, bilateral; Z88.8 Allergy status to other drugs, medicaments and biological substances
CPT/HCPCS: 20552; J0665; J3301

== ENCOUNTER 2023-12-30 21:52 | Emergency (ER) | payer MEDICARE ==
[~2023-12-30] VITALS: Ht 177.8 cm; Wt 77.3 kg
[~2023-12-30 21:52] MED LIST changes: -TRIAMCINOLONE ACETONIDE SUSP 40MG/ML 1ML VIAL As Ordered ONE
[2023-12-30 22:32] LABS: BASO % 0.6 % (0.0-1.0); EOS # 0.2 10^3/uL (0.0-0.5); EOS % 2.8 % (0.0-3.0); LYMPH # 1.8 10^3/uL (1.5-5.0); LYMPH % 24.3 % (24.0-44.0); MEAN CORPUSCULAR HEMOGLOBIN 33.5 pg (27.0-33.0); MEAN CORPUSCULAR HGB CONC 32.1 g/dl (32.0-36.5); MEAN CORPUSCULAR VOLUME 104.4 fl (80.0-96.0); MONO # 0.4 10^3/uL (0.0-0.8); MONO % 5.5 % (2.0-8.0); NEUTROPHILS # 4.8 10^3/uL (1.5-8.5); NEUTROPHILS % 66.5 % (36.0-66.0); PLATELET COUNT, AUTOMATED 238 10^3/uL (150-450); RED BLOOD COUNT 1.82 10^6/uL (4.30-6.10); WHITE BLOOD COUNT 7.2 10^3/uL (4.0-10.0)
[2023-12-30 22:47] LABS: HEMOGLOBIN 6.1 g/dl (13.5-17.5)
[2023-12-30 22:52] LABS: C REACTIVE PROTEIN QUANTITATIV < 0.40 MG/DL (<1.0)
[2023-12-30 22:54] LABS: ALBUMIN 3.2 G/DL (3.2-5.2); ALKALINE PHOSPHATASE 109 U/L (46-116); ALT/SGPT 17 U/L (7.0-40); AST/SGOT 12 U/L (<34); BILIRUBIN,DIRECT < 0.1 MG/DL (<0.4); BILIRUBIN,TOTAL 0.2 MG/DL (0.3-1.2); BLOOD UREA NITROGEN 52 MG/DL (9-23); CALCIUM LEVEL 8.3 MG/DL (8.3-10.6); CARBON DIOXIDE LEVEL 18 MMOL/L (20-31); CHLORIDE LEVEL 116 MMOL/L (98-107); CK-MB VALUE MASS 2.8 NG/ML (<3.6); CPK CREATINE PHOSPHOKINASE 64 U/L (46-171); CREATININE FOR GFR 1.68 MG/DL (0.70-1.30); GLOMERULAR FILTRATION RATE 41.4 (>35); GLUCOSE, FASTING 126 MG/DL (74-106); INR 1.25; MB/CK RELATIVE INDEX 4.37 (< OR =4); PARTIAL THROMBOPLASTIN TIME 28.8 SECONDS (24.8-34.2); POTASSIUM SERUM 4.6 MMOL/L (3.5-5.1); PROTHROMBIN TIME 15.3 SECONDS (12.5-14.5); SODIUM LEVEL 141 MMOL/L (136-145); TOTAL PROTEIN 5.7 G/DL (5.7-8.2)
[2023-12-30 22:57] LABS: FREE T4 0.97 NG/DL (0.89-1.76); THYROID STIMULATING HORMONE 1.288 uIU/ML (0.55-4.78)
[2023-12-30 23:21] LABS: IRON (FE) 39 UG/DL (65-175); PERCENT SATURATION 13.9 % (19.7-50.0); TOTAL IRON BINDING CAPACITY 281 UG/DL (250-425)
[2023-12-30] MEDS: PANTOPRAZOLE 40MG VIAL IV ONE (23:21)
[2023-12-30 23:24] LABS: FOLATE 13.2 NG/ML (>5.4); VITAMIN B12 LEVEL 1039 PG/ML (211-911)
[2023-12-31] VITALS (7 sets, daily range): BP systolic 100–145; BP diastolic 56–66; TEMP 96.3–98.5; O2SAT 97–100
[2023-12-31 00:16] LABS: CK-MB VALUE MASS 3.1 NG/ML (<3.6); MB/CK RELATIVE INDEX 4.92 (< OR =4)
[2023-12-31] MEDS ORDERED: MILKSUS3 PO (04:33)
[2023-12-31] MEDS ORDERED: ELIQ2.5T PO (04:33)
[2023-12-31] MEDS ORDERED: ALBU8.5H INH (04:33)
[2023-12-31] MEDS ORDERED: QUET50TA4 PO (04:33)
[2023-12-31] MEDS ORDERED: ACET650T61 PO (04:33)
[2023-12-31] MEDS ORDERED: VITA500T41 PO (04:33)
[2023-12-31] MEDS ORDERED: HOME MED LIST COMPLETE! XX SCH (04:35)
[2023-12-31 07:13] LABS: BASO # 0.1 10^3/uL (0.0-0.2); BASO % 0.7 % (0.0-1.0); EOS # 0.2 10^3/uL (0.0-0.5); HEMATOCRIT 23.6 % (42.0-52.0); HEMOGLOBIN 7.8 g/dl (13.5-17.5); LYMPH # 2.3 10^3/uL (1.5-5.0); LYMPH % 32.9 % (24.0-44.0); MEAN CORPUSCULAR HGB CONC 33.1 g/dl (32.0-36.5); MEAN CORPUSCULAR VOLUME 96.7 fl (80.0-96.0); MONO # 0.4 10^3/uL (0.0-0.8); MONO % 6.4 % (2.0-8.0); NEUTROPHILS # 3.9 10^3/uL (1.5-8.5); NEUTROPHILS % 56.9 % (36.0-66.0); PLATELET COUNT, AUTOMATED 196 10^3/uL (150-450); RED BLOOD COUNT 2.44 10^6/uL (4.30-6.10); WHITE BLOOD COUNT 6.9 10^3/uL (4.0-10.0)
[2023-12-31] MEDS: ACETAMINOPHEN 500 MG TAB PO PRN (07:32)
[2023-12-31 07:36] LABS: CREATININE FOR GFR 1.52 MG/DL (0.70-1.30); GLOMERULAR FILTRATION RATE 46.5 (>35); POTASSIUM SERUM 4.9 MMOL/L (3.5-5.1)
== END 2023-12-31 08:51 | disposition short-term general hospital (02) ==
LOC: M ED 21:52
DX: K92.2 Gastrointestinal hemorrhage, unspecified (principal); D64.9 Anemia, unspecified; I48.91 Unspecified atrial fibrillation; I25.119 Atherosclerotic heart disease of native coronary artery with unspecified angina pectoris; I10 Essential (primary) hypertension; F17.210 Nicotine dependence, cigarettes, uncomplicated; Z88.0 Allergy status to penicillin; Z88.8 Allergy status to other drugs, medicaments and biological substances; Z79.1 Long term (current) use of non-steroidal anti-inflammatories (NSAID); Z79.51 Long term (current) use of inhaled steroids; Z79.899 Other long term (current) drug therapy
CPT/HCPCS: 36430; 70450; 71045; 72131; 73521; 80048; 80076; 82550; 82553; 82607; 82746; 83550; 83880; 84439; 84443; 84484; 85025; 85610; 85730; 86140; 86850; 86900; 86901; 86920; 93005; 93041; 94760; 96374; 99285; C9113; P9016

== ENCOUNTER 2024-01-06 11:14 | Inpatient (IN) | payer MEDICARE ==
[~2024-01-06] VITALS: Ht 177.8 cm; Wt 73.5 kg
[~2024-01-06 11:14] MED LIST changes: +ACET650T61 PO; +ALBU8.5H INH; +ELIQ2.5T PO; +MILKSUS3 PO; +QUET50TA4 PO; +VITA500T41 PO
[2024-01-06 13:40] LABS: BASO % 0.1 % (0.0-1.0); HEMATOCRIT 32.4 % (42.0-52.0); HEMOGLOBIN 10.4 g/dl (13.5-17.5); LYMPH # 1.1 10^3/uL (1.5-5.0); LYMPH % 15.3 % (24.0-44.0); MEAN CORPUSCULAR HEMOGLOBIN 32.5 pg (27.0-33.0); MEAN CORPUSCULAR HGB CONC 32.1 g/dl (32.0-36.5); MEAN CORPUSCULAR VOLUME 101.3 fl (80.0-96.0); MONO # 0.4 10^3/uL (0.0-0.8); MONO % 6.1 % (2.0-8.0); NEUTROPHILS # 5.5 10^3/uL (1.5-8.5); NEUTROPHILS % 78.2 % (36.0-66.0); PLATELET COUNT, AUTOMATED 187 10^3/uL (150-450); WHITE BLOOD COUNT 7.1 10^3/uL (4.0-10.0)
[2024-01-06 13:53] LABS: INR 1.15; PARTIAL THROMBOPLASTIN TIME 32.9 SECONDS (24.8-34.2); PROTHROMBIN TIME 14.3 SECONDS (12.5-14.5)
[2024-01-06 14:02] LABS: ALBUMIN 3.3 G/DL (3.2-5.2); BILIRUBIN,DIRECT 0.1 MG/DL (<0.4); BILIRUBIN,TOTAL 0.3 MG/DL (0.3-1.2); CREATININE FOR GFR 1.76 MG/DL (0.70-1.30); GLOMERULAR FILTRATION RATE 39.3 (>35); LITHIUM LEVEL 0.66 MMOL/L (1.0-1.20); POTASSIUM SERUM 5.3 MMOL/L (3.5-5.1); TOTAL PROTEIN 5.9 G/DL (5.7-8.2)
[2024-01-06 14:03] LABS: FREE T4 0.89 NG/DL (0.89-1.76); THYROID STIMULATING HORMONE 0.393 uIU/ML (0.55-4.78)
[2024-01-06] MEDS: NORCO, ANEXSIA 5/325MG TABLET (HYDROcodone/ACETAMINOPHEN) PO ONE (18:37)
[2024-01-06] MEDS: ACETAMINOPHEN TAB 650MG DOSE (2X325MG) PO ONE (21:56)
[2024-01-06] MEDS ORDERED: ALBUTEROL 90 MCG/ACT 8GM HFA INHALER INH PRN (22:15)
[2024-01-06 22:34] VITALS: BP 105/45; TEMP 98.4; O2SAT 91
[2024-01-06] MEDS: IPRATROPIUM 0.5MG/ALBUTEROL 2.5MG INH SOL UD 3ML (DUONEB) NEB SCH (22:52)
[2024-01-06] MEDS ORDERED: HOME MED LIST COMPLETE! XX SCH (23:35)
[2024-01-07] MEDS: TAMSULOSIN 0.4 MG CAP PO SCH (00:05)
[2024-01-07] MEDS: SIMVASTATIN 20 MG TAB PO SCH (00:05)
[2024-01-07] MEDS: QUEtiapine FUMARATE 50MG TAB PO SCH (00:06)
[2024-01-07] MEDS: APIXABAN 2.5 MG TAB (ELIQUIS) PO SCH (00:06)
[2024-01-07] MEDS: ASPIRIN 81MG ENTERIC TABLET PO SCH (00:07)
[2024-01-07] MEDS: LITHIUM CARBONATE 300 MG CAP PO SCH (00:10)
[2024-01-07] MEDS: NS 1,000 ML IV SCH (02:51)
[2024-01-07] MEDS: ACETAMINOPHEN TAB 650MG DOSE (2X325MG) PO PRN (03:00)
[2024-01-07 05:48] VITALS: BP 102/44; TEMP 97.5; O2SAT 91
[2024-01-07] MEDS: PERCOCET 5MG/325MG TAB PO PRN (05:52)
[2024-01-07] MEDS ORDERED: oxyCODONE 5MG TAB PO PRN (07:30)
[2024-01-07 07:47] LABS: BASO % 0.1 % (0.0-1.0); HEMATOCRIT 27.2 % (42.0-52.0); HEMOGLOBIN 9.1 g/dl (13.5-17.5); LYMPH # 1.3 10^3/uL (1.5-5.0); LYMPH % 19.6 % (24.0-44.0); MEAN CORPUSCULAR HEMOGLOBIN 32.5 pg (27.0-33.0); MEAN CORPUSCULAR HGB CONC 33.5 g/dl (32.0-36.5); MEAN CORPUSCULAR VOLUME 97.1 fl (80.0-96.0); MONO # 0.3 10^3/uL (0.0-0.8); NEUTROPHILS # 5.1 10^3/uL (1.5-8.5); NEUTROPHILS % 74.9 % (36.0-66.0); PLATELET COUNT, AUTOMATED 159 10^3/uL (150-450); WHITE BLOOD COUNT 6.8 10^3/uL (4.0-10.0)
[2024-01-07 08:02] LABS: C REACTIVE PROTEIN QUANTITATIV 11.7 MG/DL (<1.0)
[2024-01-07 08:03] LABS: PERCENT SATURATION 2.2 % (19.7-50.0)
[2024-01-07 08:11] LABS: FERRITIN 117.9 NG/ML (10.5-307.3); FOLATE 15.65 NG/ML (>5.4)
[2024-01-07 08:13] LABS: ERYTHROCYTE SEDIMENTATION RATE 7 mm/hr (0-20)
[2024-01-07 08:15] LABS: ALBUMIN 1.5 G/DL (3.2-5.2); CALCIUM LEVEL 7.3 MG/DL (8.3-10.6); CREATININE FOR GFR 1.72 MG/DL (0.70-1.30); GLOMERULAR FILTRATION RATE 40.3 (>35); PHOSPHORUS LEVEL 4.1 MG/DL (2.4-5.1); POTASSIUM SERUM 4.6 MMOL/L (3.5-5.1); PROCALCITONIN 0.92 ng/ml
[2024-01-07] MEDS: CYCLOBENZAPRINE 5MG TABLET PO SCH (08:55)
[2024-01-07] MEDS: DICLOFENAC EPOLAMINE 1.3% PATCH TOP SCH (08:56)
[2024-01-07] MEDS: GABAPENTIN 100 MG CAP PO SCH (08:56)
[2024-01-07] MEDS: LIDOCAINE 5% (LIDODERM) PATCH TD SCH (08:57)
[2024-01-07] MEDS: ACETAMINOPHEN 500 MG TAB PO SCH (11:27)
[2024-01-07] MEDS: SENNA 8.6 MG TAB (SENOKOT) PO SCH (11:27)
[2024-01-07] MEDS: METAMUCIL (PSYLLIUM) PACKET PO SCH (11:28)
[2024-01-07] MEDS: MIRALAX *UNIT DOSE* 17GM PACKET PO SCH (11:28)
[2024-01-07] MEDS: SODIUM BICARBONATE 325 MG TAB PO SCH ×2 (11:39→16:14)
[2024-01-07 14:00] VITALS: BP 114/50; TEMP 98.2; O2SAT 90
[2024-01-07 14:43] LABS: VENOUS BASE EXCESS -8.7 (-2.0-2.0); VENOUS HCO3 18.3 MMOL/L (23.0-27.0); VENOUS O2 SATURATION 59.2 % (60.0-80.0); VENOUS PARTIAL PRESSURE CO2 44.2 mmHg (38.0-50.0); VENOUS PARTIAL PRESSURE O2 34.5 mmHg (30.0-50.0); VENOUS PH 7.236 UNITS (7.330-7.430); VENOUS STANDARD HCO3 16.8 MMOL/L; VENOUS TOTAL CO2 19.7 MMOL/L (24.0-28.0)
[2024-01-07 22:05] VITALS: BP 103/47; TEMP 101.3; O2SAT 87
[2024-01-07 22:09] VITALS: O2SAT 92
[2024-01-07 22:30] VITALS: BP 102/58; O2SAT 91
[2024-01-07 23:15] VITALS: TEMP 102.1; O2SAT 93
[2024-01-07] MEDS: ACETAMINOPHEN 325 MG TAB PO ONE (23:34)
[2024-01-08] VITALS (18 sets, daily range): BP systolic 82–124; BP diastolic 36–72; TEMP 97.7–101.4; O2SAT 90–95
[2024-01-08] MEDS ORDERED: ACETAMINOPHEN TAB 650MG DOSE (2X325MG) PO PRN (02:00)
[2024-01-08] MEDS: ACETAMINOPHEN TAB 650MG DOSE (2X325MG) PO PRN (03:01)
[2024-01-08] MEDS: NS 1,000 ML IV ONE (05:27)
[2024-01-08] MEDS: IBUPROFEN 400MG TAB PO ONE (05:29)
[2024-01-08 08:06] LABS: HEMATOCRIT 25.5 % (42.0-52.0); HEMOGLOBIN 8.3 g/dl (13.5-17.5); MEAN CORPUSCULAR HEMOGLOBIN 31.8 pg (27.0-33.0); MEAN CORPUSCULAR HGB CONC 32.5 g/dl (32.0-36.5); MEAN CORPUSCULAR VOLUME 97.7 fl (80.0-96.0); PLATELET COUNT, AUTOMATED 159 10^3/uL (150-450); RED BLOOD COUNT 2.61 10^6/uL (4.30-6.10); WHITE BLOOD COUNT 6.1 10^3/uL (4.0-10.0)
[2024-01-08 08:20] LABS: ERYTHROCYTE SEDIMENTATION RATE 10 mm/hr (0-20)
[2024-01-08 08:37] LABS: ANISOCYTOSIS 1+; LYMPHOCYTES 6 % (16-44); MONOCYTES 1 % (0-5); NEUTROPHILS 86 % (28-66); PLATELET ESTIMATE NORMAL (NORMAL); POIKILOCYTOSIS 1+
[2024-01-08 08:38] LABS: C REACTIVE PROTEIN QUANTITATIV 20.7 MG/DL (<1.0)
[2024-01-08 08:41] LABS: ALBUMIN 2.1 G/DL (3.2-5.2); BILIRUBIN,TOTAL 0.4 MG/DL (0.3-1.2); CREATININE FOR GFR 1.83 MG/DL (0.70-1.30); GLOMERULAR FILTRATION RATE 37.6 (>35); POTASSIUM SERUM 4.8 MMOL/L (3.5-5.1); TOTAL PROTEIN 4.2 G/DL (5.7-8.2)
[2024-01-08] MEDS: cefTRIAXone SOD 2 GM in D5W MINI-BAG PLUS 50 ML IV SCH (10:06)
[2024-01-08] MEDS: LR 1,000 ML IV SCH ×2 (10:46→12:24)
[2024-01-08] MEDS: AZITHROMYCIN 250MG TABLET PO SCH (12:05)
[2024-01-08] MEDS: LR 500 ML IV SCH (12:47)
[2024-01-08] MEDS: REMDESIVIR 200 MG in NS 250 ML IV ONE (15:05)
[2024-01-08] MEDS: NOREPINEPHRINE 4MG IN D5 250ML 4 MG in IV 1 EA IV SCH (15:40)
[2024-01-08] MEDS: dexAMETHasone 2 MG TAB PO ONE (15:42)
[2024-01-08] MEDS: HEPARIN SOD (PORCINE) 5000UNITS/ML 1ML VIAL/SYRINGE SQ SCH (22:00)
[2024-01-09] VITALS (15 sets, daily range): BP systolic 94–113; BP diastolic 50–59; TEMP 97.6–98.9; O2SAT 89–95
[2024-01-09] MEDS: oxyCODONE 5MG TAB PO PRN (01:45)
[2024-01-09 05:58] LABS: ERYTHROCYTE SEDIMENTATION RATE 24 mm/hr (0-20)
[2024-01-09 06:13] LABS: C REACTIVE PROTEIN QUANTITATIV 26.3 MG/DL (<1.0)
[2024-01-09 06:43] LABS: CALCIUM LEVEL 7.8 MG/DL (8.3-10.6); CREATININE FOR GFR 1.57 MG/DL (0.70-1.30); GLOMERULAR FILTRATION RATE 44.8 (>35); MAGNESIUM LEVEL 1.9 MG/DL (1.8-2.4); POTASSIUM SERUM 4.9 MMOL/L (3.5-5.1)
[2024-01-09 07:11] LABS: HEMATOCRIT 24.9 % (42.0-52.0); HEMOGLOBIN 8.2 g/dl (13.5-17.5); MEAN CORPUSCULAR HEMOGLOBIN 32.3 pg (27.0-33.0); MEAN CORPUSCULAR HGB CONC 32.9 g/dl (32.0-36.5); PLATELET COUNT, AUTOMATED 175 10^3/uL (150-450); RED BLOOD COUNT 2.54 10^6/uL (4.30-6.10); WHITE BLOOD COUNT 7.4 10^3/uL (4.0-10.0)
[2024-01-09] MEDS: dexAMETHasone 2 MG TAB PO SCH (09:00)
[2024-01-09] MEDS: PANTOPRAZOLE 40MG TAB (PROTONIX) PO SCH (10:22)
[2024-01-09] MEDS: REMDESIVIR 100 MG in NS 250 ML IV SCH (14:01)
[2024-01-09] MEDS: LACTULOSE 20GM/30ML SYRUP UDC PO ONE (14:01)
[2024-01-09] MEDS: FERROUS SULFATE 325MG TAB PO SCH (20:47)
[2024-01-09] MEDS: DOCUSATE SODIUM 100MG CAPSULE PO SCH (20:48)
[2024-01-10 04:12] VITALS: BP 99/54; TEMP 97.1; O2SAT 93
[2024-01-10 05:01] LABS: HEMATOCRIT 24.1 % (42.0-52.0); MEAN CORPUSCULAR HGB CONC 33.2 g/dl (32.0-36.5); MEAN CORPUSCULAR VOLUME 96.4 fl (80.0-96.0); PLATELET COUNT, AUTOMATED 199 10^3/uL (150-450); WHITE BLOOD COUNT 5.5 10^3/uL (4.0-10.0)
[2024-01-10 05:26] LABS: BILIRUBIN,TOTAL 0.2 MG/DL (0.3-1.2); CALCIUM LEVEL 7.9 MG/DL (8.3-10.6); CREATININE FOR GFR 1.51 MG/DL (0.70-1.30); GLOMERULAR FILTRATION RATE 46.9 (>35); POTASSIUM SERUM 5.1 MMOL/L (3.5-5.1); TOTAL PROTEIN 4.5 G/DL (5.7-8.2)
[2024-01-10 07:37] VITALS: BP 127/96; TEMP 97; O2SAT 94
[2024-01-10] MEDS: CYANOCOBALAMIN 500 MCG TAB PO SCH (09:16)
[2024-01-10 12:19] VITALS: BP 105/55; TEMP 97.3; O2SAT 94
[2024-01-10 15:37] VITALS: BP 120/59; TEMP 97.8; O2SAT 93
[2024-01-10 21:01] VITALS: BP 116/58; TEMP 97.9; O2SAT 93
[2024-01-10] MEDS: APIXABAN 2.5 MG TAB (ELIQUIS) PO SCH (21:27)
[2024-01-11 00:52] VITALS: BP 145/67; TEMP 97.4; O2SAT 96
[2024-01-11 04:47] VITALS: BP 120/62; TEMP 97.6; O2SAT 92
[2024-01-11 06:00] LABS: HEMATOCRIT 26.2 % (42.0-52.0); HEMOGLOBIN 8.7 g/dl (13.5-17.5); MEAN CORPUSCULAR HEMOGLOBIN 32.1 pg (27.0-33.0); MEAN CORPUSCULAR HGB CONC 33.2 g/dl (32.0-36.5); MEAN CORPUSCULAR VOLUME 96.7 fl (80.0-96.0); PLATELET COUNT, AUTOMATED 229 10^3/uL (150-450); RED BLOOD COUNT 2.71 10^6/uL (4.30-6.10)
[2024-01-11 06:29] LABS: ALBUMIN 2.1 G/DL (3.2-5.2); BILIRUBIN,TOTAL 0.2 MG/DL (0.3-1.2); CALCIUM LEVEL 8.2 MG/DL (8.3-10.6); CREATININE FOR GFR 1.4 MG/DL (0.70-1.30); GLOMERULAR FILTRATION RATE 51.2 (>35); POTASSIUM SERUM 5.6 MMOL/L (3.5-5.1); TOTAL PROTEIN 4.7 G/DL (5.7-8.2)
[2024-01-11 09:00] VITALS: BP 114/56; TEMP 96; O2SAT 91
[2024-01-11] MEDS ORDERED: CEFDINIR 300 MG CAP (OMNICEF) PO SCH (09:00)
[2024-01-11 11:53] LABS: PROCALCITONIN 2.34 ng/ml
[2024-01-11 14:00] VITALS: BP 103/54; TEMP 97.3; O2SAT 94
[2024-01-11 16:23] VITALS: BP 110/54; TEMP 97.9; O2SAT 93
[2024-01-11] MEDS: IRON SUCROSE 200 MG in NS 100 ML IV ONE (17:12)
[2024-01-11] MEDS: LITHIUM CARBONATE 150 MG CAP PO SCH (20:02)
[2024-01-11 21:21] VITALS: BP 125/64; TEMP 97.7; O2SAT 95
[2024-01-12 05:36] VITALS: BP 133/75; TEMP 97.1; O2SAT 95
[2024-01-12 09:31] LABS: HEMOGLOBIN 9.4 g/dl (13.5-17.5); MEAN CORPUSCULAR HEMOGLOBIN 31.6 pg (27.0-33.0); MEAN CORPUSCULAR HGB CONC 31.3 g/dl (32.0-36.5); PLATELET COUNT, AUTOMATED 120 10^3/uL (150-450); RED BLOOD COUNT 2.97 10^6/uL (4.30-6.10); WHITE BLOOD COUNT 4.7 10^3/uL (4.0-10.0)
[2024-01-12 10:00] LABS: ALBUMIN 2.4 G/DL (3.2-5.2); BILIRUBIN,TOTAL 0.3 MG/DL (0.3-1.2); CALCIUM LEVEL 8.5 MG/DL (8.3-10.6); CREATININE FOR GFR 1.36 MG/DL (0.70-1.30); GLOMERULAR FILTRATION RATE 52.9 (>35); POTASSIUM SERUM 5.5 MMOL/L (3.5-5.1); TOTAL PROTEIN 5.3 G/DL (5.7-8.2)
[2024-01-12] MEDS: CEFDINIR 300 MG CAP (OMNICEF) PO SCH (10:13)
[2024-01-12] MEDS: NS 1,000 ML IV SCH (12:55)
[2024-01-12] MEDS: PATIROMER SORBITEX CALCIUM 8.4 GM POWDER PACKET (VELTASSA) PO SCH (12:55)
[2024-01-12 14:00] VITALS: BP 125/72; TEMP 97.9; O2SAT 97
[2024-01-12 18:53] LABS: CALCIUM LEVEL 8.1 MG/DL (8.3-10.6); CREATININE FOR GFR 1.41 MG/DL (0.70-1.30); GLOMERULAR FILTRATION RATE 50.7 (>35); POTASSIUM SERUM 5.5 MMOL/L (3.5-5.1)
[2024-01-12] MEDS: ALBUTEROL SULFATE 2.5MG/0.5ML INH NEB SOLN NEB ONE (20:16)
[2024-01-12 21:00] VITALS: BP 103/48; TEMP 97.9; O2SAT 95
[2024-01-12] MEDS: SODIUM BICARBONATE 150 MEQ in D5W 1,000 ML IV SCH (21:12)
[2024-01-13 05:36] VITALS: BP 103/48; TEMP 97.7; O2SAT 92
[2024-01-13 06:06] LABS: BASO % 0.2 % (0.0-1.0); EOS # 0.1 10^3/uL (0.0-0.5); EOS % 1.4 % (0.0-3.0); HEMATOCRIT 27.3 % (42.0-52.0); HEMOGLOBIN 8.9 g/dl (13.5-17.5); LYMPH # 1.3 10^3/uL (1.5-5.0); LYMPH % 26.5 % (24.0-44.0); MEAN CORPUSCULAR HEMOGLOBIN 31.6 pg (27.0-33.0); MEAN CORPUSCULAR HGB CONC 32.6 g/dl (32.0-36.5); MEAN CORPUSCULAR VOLUME 96.8 fl (80.0-96.0); MONO # 0.4 10^3/uL (0.0-0.8); MONO % 8.8 % (2.0-8.0); NEUTROPHILS # 3.1 10^3/uL (1.5-8.5); NEUTROPHILS % 61.9 % (36.0-66.0); RED BLOOD COUNT 2.82 10^6/uL (4.30-6.10)
[2024-01-13 06:19] LABS: PLATELET COUNT, AUTOMATED 234 10^3/uL (150-450)
[2024-01-13 06:24] LABS: CALCIUM LEVEL 7.6 MG/DL (8.3-10.6); CREATININE FOR GFR 1.53 MG/DL (0.70-1.30); GLOMERULAR FILTRATION RATE 46.2 (>35); POTASSIUM SERUM 5.5 MMOL/L (3.5-5.1)
[2024-01-13] MEDS: FERROUS SULFATE 325MG TAB PO SCH (09:30)
[2024-01-13] MEDS: BISACODYL 10MG SUPP PR ONE (13:49)
[2024-01-13 13:51] VITALS: BP 113/54; TEMP 98.6; O2SAT 91
[2024-01-13 20:30] VITALS: BP 112/53; TEMP 99.6; O2SAT 100
[2024-01-13] MEDS: SENOKOT S TAB PO SCH (21:04)
[2024-01-14 05:59] VITALS: BP 120/57; TEMP 97.6; O2SAT 92
[2024-01-14 06:13] LABS: BASO % 0.2 % (0.0-1.0); EOS # 0.2 10^3/uL (0.0-0.5); EOS % 3.5 % (0.0-3.0); HEMATOCRIT 26.1 % (42.0-52.0); HEMOGLOBIN 8.6 g/dl (13.5-17.5); LYMPH # 1.5 10^3/uL (1.5-5.0); LYMPH % 25.7 % (24.0-44.0); MEAN CORPUSCULAR HEMOGLOBIN 31.5 pg (27.0-33.0); MEAN CORPUSCULAR VOLUME 95.6 fl (80.0-96.0); MONO # 0.4 10^3/uL (0.0-0.8); MONO % 7.2 % (2.0-8.0); NEUTROPHILS # 3.6 10^3/uL (1.5-8.5); NEUTROPHILS % 62.3 % (36.0-66.0); PLATELET COUNT, AUTOMATED 252 10^3/uL (150-450); RED BLOOD COUNT 2.73 10^6/uL (4.30-6.10); WHITE BLOOD COUNT 5.7 10^3/uL (4.0-10.0)
[2024-01-14 06:40] LABS: CALCIUM LEVEL 7.7 MG/DL (8.3-10.6); CREATININE FOR GFR 1.6 MG/DL (0.70-1.30); GLOMERULAR FILTRATION RATE 43.8 (>35); POTASSIUM SERUM 5.5 MMOL/L (3.5-5.1)
[2024-01-14] MEDS: SOD POLYSTYRENE SULFONATE SUSP 15GM 60ML UD PO ONE (08:36)
[2024-01-14] MEDS: FERRIC CARBOXYMALTOSE INJ 750 MG, VIAL MATE ADAPTER 1 EACH in NS 250 ML IV ONE (11:24)
[2024-01-14 14:42] VITALS: BP 113/48; TEMP 98.2; O2SAT 92
[2024-01-14] MEDS: BISACODYL 10MG SUPP PR ONE (16:26)
[2024-01-14 20:23] VITALS: BP 111/48; TEMP 98.1; O2SAT 90
[2024-01-15 05:33] VITALS: BP 103/50; TEMP 97.9; O2SAT 89
[2024-01-15 09:56] LABS: BASO % 0.1 % (0.0-1.0); EOS # 0.4 10^3/uL (0.0-0.5); EOS % 5.2 % (0.0-3.0); HEMATOCRIT 28.2 % (42.0-52.0); HEMOGLOBIN 9.2 g/dl (13.5-17.5); LYMPH # 1.6 10^3/uL (1.5-5.0); LYMPH % 21.3 % (24.0-44.0); MEAN CORPUSCULAR HEMOGLOBIN 32.1 pg (27.0-33.0); MEAN CORPUSCULAR HGB CONC 32.6 g/dl (32.0-36.5); MEAN CORPUSCULAR VOLUME 98.3 fl (80.0-96.0); MONO # 0.3 10^3/uL (0.0-0.8); MONO % 4.7 % (2.0-8.0); NEUTROPHILS # 4.9 10^3/uL (1.5-8.5); NEUTROPHILS % 66.8 % (36.0-66.0); PLATELET COUNT, AUTOMATED 327 10^3/uL (150-450); RED BLOOD COUNT 2.87 10^6/uL (4.30-6.10); WHITE BLOOD COUNT 7.3 10^3/uL (4.0-10.0)
[2024-01-15 10:18] LABS: CREATININE FOR GFR 1.82 MG/DL (0.70-1.30); GLOMERULAR FILTRATION RATE 37.8 (>35); POTASSIUM SERUM 5.3 MMOL/L (3.5-5.1)
[2024-01-15] MEDS: BISACODYL 10MG SUPP PR ONE (11:56)
[2024-01-15] MEDS: SOD POLYSTYRENE SULFONATE SUSP 15GM 60ML UD PO ONE (12:23)
[2024-01-15 14:55] VITALS: BP 105/50; TEMP 97.9; O2SAT 90
[2024-01-15] MEDS: LIDOCAINE 5% (LIDODERM) PATCH TD ONE (15:44)
[2024-01-15] MEDS: traMADol 50 MG TAB PO PRN (17:56)
[2024-01-15 22:01] VITALS: BP 132/60; TEMP 98.1; O2SAT 90
[2024-01-16 05:42] VITALS: BP 111/53; TEMP 98; O2SAT 91
[2024-01-16 07:39] LABS: ALBUMIN 2.1 G/DL (3.2-5.2); CALCIUM LEVEL 7.6 MG/DL (8.3-10.6); CREATININE FOR GFR 1.75 MG/DL (0.70-1.30); GLOMERULAR FILTRATION RATE 39.5 (>35); PHOSPHORUS LEVEL 3.5 MG/DL (2.4-5.1); POTASSIUM SERUM 5.1 MMOL/L (3.5-5.1)
[2024-01-16] MEDS: FERRIC CARBOXYMALTOSE INJ 750 MG, VIAL MATE ADAPTER 1 EACH in NS 250 ML IV ONE (12:13)
[2024-01-16 14:00] VITALS: BP 109/52; TEMP 97.9; O2SAT 95
[2024-01-16 21:42] VITALS: BP 104/52; TEMP 97.9; O2SAT 94
[2024-01-17 05:49] VITALS: BP 101/52; TEMP 97.7; O2SAT 90
[2024-01-17 07:01] LABS: BASO % 0.3 % (0.0-1.0); EOS # 0.3 10^3/uL (0.0-0.5); EOS % 4.1 % (0.0-3.0); HEMATOCRIT 27.6 % (42.0-52.0); HEMOGLOBIN 8.6 g/dl (13.5-17.5); LYMPH # 1.6 10^3/uL (1.5-5.0); LYMPH % 20.8 % (24.0-44.0); MEAN CORPUSCULAR HEMOGLOBIN 30.9 pg (27.0-33.0); MEAN CORPUSCULAR HGB CONC 31.2 g/dl (32.0-36.5); MEAN CORPUSCULAR VOLUME 99.3 fl (80.0-96.0); MONO # 0.4 10^3/uL (0.0-0.8); MONO % 5.7 % (2.0-8.0); NEUTROPHILS # 5.1 10^3/uL (1.5-8.5); NEUTROPHILS % 67.6 % (36.0-66.0); PLATELET COUNT, AUTOMATED 357 10^3/uL (150-450); RED BLOOD COUNT 2.78 10^6/uL (4.30-6.10); WHITE BLOOD COUNT 7.5 10^3/uL (4.0-10.0)
[2024-01-17 07:28] LABS: CALCIUM LEVEL 7.9 MG/DL (8.3-10.6); CREATININE FOR GFR 1.7 MG/DL (0.70-1.30); GLOMERULAR FILTRATION RATE 40.9 (>35); POTASSIUM SERUM 5.2 MMOL/L (3.5-5.1)
[2024-01-17] MEDS ORDERED: BISACODYL 10MG SUPP PR ONE (08:15)
[2024-01-17] MEDS: BISACODYL 10MG SUPP PR SCH (10:08)
[2024-01-17] MEDS: PATIROMER SORBITEX CALCIUM 8.4 GM POWDER PACKET (VELTASSA) PO SCH (12:39)
[2024-01-17 14:48] VITALS: BP 102/51; TEMP 97.3; O2SAT 94
[2024-01-17] MEDS: IPRATROPIUM 0.5MG/ALBUTEROL 2.5MG INH SOL UD 3ML (DUONEB) NEB SCH (15:20)
[2024-01-17 20:45] VITALS: BP 119/51; TEMP 98.1; O2SAT 93
[2024-01-18 06:00] VITALS: BP 100/43; TEMP 98.2; O2SAT 90
[2024-01-18 09:27] LABS: BASO % 0.2 % (0.0-1.0); EOS # 0.3 10^3/uL (0.0-0.5); EOS % 3.2 % (0.0-3.0); HEMATOCRIT 27.7 % (42.0-52.0); HEMOGLOBIN 8.8 g/dl (13.5-17.5); LYMPH # 1.7 10^3/uL (1.5-5.0); LYMPH % 20.1 % (24.0-44.0); MEAN CORPUSCULAR HEMOGLOBIN 31.7 pg (27.0-33.0); MEAN CORPUSCULAR HGB CONC 31.8 g/dl (32.0-36.5); MEAN CORPUSCULAR VOLUME 99.6 fl (80.0-96.0); MONO # 0.5 10^3/uL (0.0-0.8); NEUTROPHILS # 5.7 10^3/uL (1.5-8.5); NEUTROPHILS % 69.5 % (36.0-66.0); PLATELET COUNT, AUTOMATED 358 10^3/uL (150-450); RED BLOOD COUNT 2.78 10^6/uL (4.30-6.10); WHITE BLOOD COUNT 8.2 10^3/uL (4.0-10.0)
[2024-01-18 09:53] LABS: CALCIUM LEVEL 8.2 MG/DL (8.3-10.6); CREATININE FOR GFR 1.81 MG/DL (0.70-1.30); POTASSIUM SERUM 5.3 MMOL/L (3.5-5.1)
[2024-01-18] MEDS: NS 1,000 ML IV ONE (11:10)
[2024-01-18 14:00] VITALS: BP 115/97; TEMP 97.9; O2SAT 94
[2024-01-18 20:57] VITALS: BP 126/65; TEMP 98.1; O2SAT 95
[2024-01-19 05:49] VITALS: BP 123/63; TEMP 97.7; O2SAT 94
[2024-01-19 07:41] LABS: BASO % 0.4 % (0.0-1.0); EOS # 0.2 10^3/uL (0.0-0.5); EOS % 2.9 % (0.0-3.0); HEMATOCRIT 26.8 % (42.0-52.0); HEMOGLOBIN 8.5 g/dl (13.5-17.5); LYMPH % 26.1 % (24.0-44.0); MEAN CORPUSCULAR HEMOGLOBIN 31.8 pg (27.0-33.0); MEAN CORPUSCULAR HGB CONC 31.7 g/dl (32.0-36.5); MEAN CORPUSCULAR VOLUME 100.4 fl (80.0-96.0); MONO # 0.6 10^3/uL (0.0-0.8); MONO % 7.3 % (2.0-8.0); NEUTROPHILS # 4.9 10^3/uL (1.5-8.5); NEUTROPHILS % 62.4 % (36.0-66.0); PLATELET COUNT, AUTOMATED 317 10^3/uL (150-450); RED BLOOD COUNT 2.67 10^6/uL (4.30-6.10); WHITE BLOOD COUNT 7.8 10^3/uL (4.0-10.0)
[2024-01-19 08:01] LABS: CALCIUM LEVEL 7.9 MG/DL (8.3-10.6); CREATININE FOR GFR 1.68 MG/DL (0.70-1.30); GLOMERULAR FILTRATION RATE 41.4 (>35); POTASSIUM SERUM 5.1 MMOL/L (3.5-5.1)
[2024-01-19] MEDS: NS 1,000 ML IV SCH (12:27)
[2024-01-19 13:54] VITALS: BP 124/62; TEMP 97.6; O2SAT 95
[2024-01-19 21:09] VITALS: BP 125/64; TEMP 98.4; O2SAT 95
[2024-01-20 05:40] VITALS: BP 104/66; TEMP 97.9; O2SAT 96
[2024-01-20 09:40] LABS: ALBUMIN 2.4 G/DL (3.2-5.2); CALCIUM LEVEL 8.2 MG/DL (8.3-10.6); CREATININE FOR GFR 1.63 MG/DL (0.70-1.30); GLOMERULAR FILTRATION RATE 42.9 (>35); PHOSPHORUS LEVEL 2.3 MG/DL (2.4-5.1)
[2024-01-20] MEDS ORDERED: MIRA33506 PO (10:33)
[2024-01-20] MEDS ORDERED: SENN-52 PO (10:33)
[2024-01-20] MEDS ORDERED: LIDO5TD TD (10:33)
[2024-01-20] MEDS ORDERED: GABA-1171 PO (10:33)
[2024-01-20] MEDS ORDERED: VELT1POW PO (10:33)
[2024-01-20] MEDS ORDERED: BISA10SU PR (10:33)
[2024-01-20] MEDS ORDERED: TRAM50TA2 PO (10:33)
[2024-01-20 14:00] VITALS: BP 110/53; TEMP 97.9; O2SAT 95
[2024-01-20 20:46] VITALS: BP 136/64; TEMP 98.2; O2SAT 91
[2024-01-21 05:34] VITALS: BP 122/60; TEMP 98.4; O2SAT 95
== END 2024-01-21 12:15 | disposition home health service (06) | DRG 871 ==
LOC: M ED 11:14 → EDBD 11:14 → M ED INP 20:38 → M MSPAV 22:26 → OBSVTOIN 01-08 12:49 → M ICU 01-08 16:11 → M MS5PR 01-11 16:13
PROVIDERS: ADMIT Internal Medicine; ATTEND General Practice
DX: A41.9 Sepsis, unspecified organism (principal); U07.1 COVID-19; J15.9 Unspecified bacterial pneumonia; I50.42 Chronic combined systolic (congestive) and diastolic (congestive) heart failure; I44.2 Atrioventricular block, complete; E87.20 Acidosis, unspecified; J44.0 Chronic obstructive pulmonary disease with (acute) lower respiratory infection; R53.1 Weakness; N18.32 Chronic kidney disease, stage 3b; I25.10 Atherosclerotic heart disease of native coronary artery without angina pectoris; F31.9 Bipolar disorder, unspecified; R39.12 Poor urinary stream; R39.198 Other difficulties with micturition; I48.0 Paroxysmal atrial fibrillation; N40.1 Benign prostatic hyperplasia with lower urinary tract symptoms; G89.29 Other chronic pain; Z66 Do not resuscitate; M47.816 Spondylosis without myelopathy or radiculopathy, lumbar region; M47.817 Spondylosis without myelopathy or radiculopathy, lumbosacral region; E55.9 Vitamin D deficiency, unspecified; G47.33 Obstructive sleep apnea (adult) (pediatric); M54.50 Low back pain, unspecified; G47.00 Insomnia, unspecified; R33.9 Retention of urine, unspecified; I27.20 Pulmonary hypertension, unspecified; D53.9 Nutritional anemia, unspecified; E78.5 Hyperlipidemia, unspecified; I49.5 Sick sinus syndrome; M41.9 Scoliosis, unspecified; M51.36 Other intervertebral disc degeneration, lumbar region; D63.1 Anemia in chronic kidney disease; I25.5 Ischemic cardiomyopathy; K59.03 Drug induced constipation; D50.9 Iron deficiency anemia, unspecified; E87.5 Hyperkalemia; K21.9 Gastro-esophageal reflux disease without esophagitis; T45.4X5A Adverse effect of iron and its compounds, initial encounter; R53.81 Other malaise; R73.01 Impaired fasting glucose; Z95.0 Presence of cardiac pacemaker; Z96.643 Presence of artificial hip joint, bilateral; Z79.01 Long term (current) use of anticoagulants; Z95.5 Presence of coronary angioplasty implant and graft; Z79.82 Long term (current) use of aspirin; Z79.899 Other long term (current) drug therapy; Z88.0 Allergy status to penicillin; Z88.8 Allergy status to other drugs, medicaments and biological substances

== ENCOUNTER 2024-02-11 13:21 | Outpatient (CLI) | payer MEDICARE ==
[~2024-02-11 13:21] MED LIST changes: +ALBUTEROL SULFATE 2.5MG/0.5ML INH NEB SOLN INH PRN; +BISA10SU PR; +EPINEPHrine INJ 1 MG/ML 1ML AMP IM PRN; +GABA-1171 PO; +LIDO5TD TD; +MIRA33506 PO; +NS 1,000 ML IV SCH; +TRAM50TA2 PO; +VELT1POW PO; +diphenhydrAMINE 50MG/ML VIAL IV PRN; +methylPREDNISolone 125MG 2ML VIAL IV PRN
[2024-02-11 13:30] VITALS: BP 129/60; O2SAT 96
[2024-02-11] MEDS: IRON SUCROSE 300 MG in NS 250 ML OVER 90 MIN. IV ONE (14:02)
[2024-02-11 15:54] VITALS: BP 140/68; O2SAT 95
== END 2024-02-11 15:55 ==
LOC: M INFU 13:21
PROVIDERS: ATTEND Internal Medicine Hematology
DX: D50.9 Iron deficiency anemia, unspecified (principal); Z88.0 Allergy status to penicillin; Z88.8 Allergy status to other drugs, medicaments and biological substances
CPT/HCPCS: 96365; 96366; J1756

== ENCOUNTER 2024-02-18 13:25 | Outpatient (CLI) | payer MEDICARE ==
[~2024-02-18] VITALS: Ht 177.8 cm; Wt 70.0 kg
[2024-02-18 13:25] VITALS: BP 153/67; O2SAT 99
[2024-02-18] MEDS: IRON SUCROSE 300 MG in NS 250 ML OVER 90 MIN. IV ONE (13:38)
[2024-02-18 15:10] VITALS: BP 140/77; O2SAT 99
== END 2024-02-18 15:15 | disposition home or self-care (01) ==
LOC: M INFU 13:25
PROVIDERS: ATTEND Internal Medicine Hematology
DX: D50.9 Iron deficiency anemia, unspecified (principal); Z88.0 Allergy status to penicillin; Z88.8 Allergy status to other drugs, medicaments and biological substances
CPT/HCPCS: 96365; J1756

== ENCOUNTER 2024-02-29 13:40 | Outpatient (CLI) | payer MEDICARE ==
[~2024-02-29] VITALS: Ht 185.4 cm; Wt 70.0 kg
[2024-02-29 13:40] VITALS: BP 123/59; O2SAT 98
[2024-02-29] MEDS: IRON SUCROSE 300 MG in NS 250 ML IV ONE (14:13)
[2024-02-29 16:00] VITALS: BP 131/67; O2SAT 100
== END 2024-02-29 16:00 | disposition home or self-care (01) ==
LOC: M INFU 13:40
PROVIDERS: ATTEND Internal Medicine Hematology
DX: D50.9 Iron deficiency anemia, unspecified (principal); Z88.0 Allergy status to penicillin; Z88.8 Allergy status to other drugs, medicaments and biological substances
CPT/HCPCS: 96365; 96366; J1756

== ENCOUNTER 2024-03-07 14:10 | Outpatient (CLI) | payer MEDICARE ==
[2024-03-07 14:10] VITALS: BP 121/57; O2SAT 98
[2024-03-07] MEDS: IRON SUCROSE 300 MG in NS 250 ML IV ONE (14:17)
[2024-03-07 16:00] VITALS: BP 133/67; O2SAT 98
== END 2024-03-07 16:00 ==
LOC: M INFU 14:10
PROVIDERS: ATTEND Internal Medicine Hematology
DX: D50.9 Iron deficiency anemia, unspecified (principal); Z88.0 Allergy status to penicillin; Z88.8 Allergy status to other drugs, medicaments and biological substances
CPT/HCPCS: 96365; 96366; J1756

== ENCOUNTER → 2024-03-10 | Outpatient (CLI) | payer MEDICARE ==
[~2024-03-10] MED LIST changes: -ALBUTEROL SULFATE 2.5MG/0.5ML INH NEB SOLN INH PRN; -EPINEPHrine INJ 1 MG/ML 1ML AMP IM PRN; -NS 1,000 ML IV SCH; -diphenhydrAMINE 50MG/ML VIAL IV PRN; -methylPREDNISolone 125MG 2ML VIAL IV PRN
[2024-03-10 13:45] LABS: BASO # 0.1 10^3/uL (0.0-0.2); EOS # 0.4 10^3/uL (0.0-0.5); HEMATOCRIT 36.3 % (42.0-52.0); HEMOGLOBIN 11.3 g/dl (13.5-17.5); LYMPH % 31.3 % (24.0-44.0); MEAN CORPUSCULAR HEMOGLOBIN 33.7 pg (27.0-33.0); MEAN CORPUSCULAR HGB CONC 31.1 g/dl (32.0-36.5); MEAN CORPUSCULAR VOLUME 108.4 fl (80.0-96.0); MONO # 0.3 10^3/uL (0.0-0.8); MONO % 5.1 % (2.0-8.0); NEUTROPHILS # 3.5 10^3/uL (1.5-8.5); NEUTROPHILS % 55.3 % (36.0-66.0); PLATELET COUNT, AUTOMATED 220 10^3/uL (150-450); RED BLOOD COUNT 3.35 10^6/uL (4.30-6.10); WHITE BLOOD COUNT 6.3 10^3/uL (4.0-10.0)
[2024-03-10 14:05] LABS: C REACTIVE PROTEIN QUANTITATIV < 0.40 MG/DL (<1.0)
[2024-03-10 14:07] LABS: ALBUMIN 3.7 G/DL (3.2-5.2); ALKALINE PHOSPHATASE 123 U/L (46-116); ALT/SGPT 19 U/L (7.0-40); AST/SGOT 20 U/L (<34); BILIRUBIN,TOTAL 0.3 MG/DL (0.3-1.2); BLOOD UREA NITROGEN 24 MG/DL (9-23); CALCIUM LEVEL 8.4 MG/DL (8.3-10.6); CARBON DIOXIDE LEVEL 20 MMOL/L (20-31); CHLORIDE LEVEL 115 MMOL/L (98-107); CHOLESTEROL LEVEL 142 MG/DL (<200); CREATININE FOR GFR 1.29 MG/DL (0.70-1.30); FREE T4 0.79 NG/DL (0.89-1.76); GLOMERULAR FILTRATION RATE 56.2 (>35); GLUCOSE, FASTING 79 MG/DL (74-106); HDL CHOLESTEROL 67.6 MG/DL (>40); LDL CHOLESTEROL 56.2 MG/DL (<100); NON-HDL-C 74.4 MG/DL; POTASSIUM SERUM 5.7 MMOL/L (3.5-5.1); SODIUM LEVEL 140 MMOL/L (136-145); THYROID STIMULATING HORMONE 2.749 uIU/ML (0.55-4.78); TOTAL PROTEIN 6.4 G/DL (5.7-8.2); TRIGLYCERIDES LEVEL 91 MG/DL (<150)
[2024-03-10 14:08] LABS: TOTAL 25(OH) VITAMIN D 28.2 NG/ML (20.0-100.0); VITAMIN B12 LEVEL 432 PG/ML (211-911)
[2024-03-10 14:26] LABS: HEMOGLOBIN A1c 4.4 % (4.0-6.0)
== END ==
LOC: M PLALAB 10:51
PROVIDERS: ATTEND Internal Medicine Hematology
DX: I25.10 Atherosclerotic heart disease of native coronary artery without angina pectoris (principal); E78.00 Pure hypercholesterolemia, unspecified; Z79.899 Other long term (current) drug therapy

== ENCOUNTER → 2024-06-28 | Outpatient (REF) | payer MEDICARE | LOC: M SFHCPLAZ 16:20 | PROVIDERS: ATTEND Family Medicine | DX: E78.00 Pure hypercholesterolemia, unspecified (principal) ==

== ENCOUNTER → 2024-09-13 | Outpatient (CLI) | payer MEDICARE ==
[~2024-09-13] MED LIST changes: +ADVA1AER9 INH
== END ==
LOC: M PLAIMG 14:00
PROVIDERS: ATTEND Pain Medicine Interventional Pain Medicine
DX: M51.372 Other intervertebral disc degeneration, lumbosacral region with discogenic back pain and lower extremity pain (principal); M25.512 Pain in left shoulder; M25.511 Pain in right shoulder; M19.011 Primary osteoarthritis, right shoulder; M19.012 Primary osteoarthritis, left shoulder; R91.1 Solitary pulmonary nodule; M51.360 Other intervertebral disc degeneration, lumbar region with discogenic back pain only; M41.86 Other forms of scoliosis, lumbar region; M48.07 Spinal stenosis, lumbosacral region; I77.811 Abdominal aortic ectasia; M75.42 Impingement syndrome of left shoulder

== ENCOUNTER → 2024-10-19 | Outpatient (CLI) | payer MEDICARE | LOC: M RAD 14:11 | DX: R91.1 Solitary pulmonary nodule (principal) ==

== ENCOUNTER → 2024-12-21 | Outpatient (CLI) | payer MEDICARE ==
[~2024-12-21] MED LIST changes: +TAMS-18 PO
[2024-12-21 15:04] LABS: BASO # 0.1 10^3/uL (0.0-0.2); BASO % 0.9 % (0.0-1.0); EOS % 13.5 % (0.0-3.0); HEMATOCRIT 35.7 % (42.0-52.0); HEMOGLOBIN 10.7 g/dl (13.5-17.5); LYMPH # 2.3 10^3/uL (1.5-5.0); LYMPH % 30.4 % (24.0-44.0); MEAN CORPUSCULAR HEMOGLOBIN 32.4 pg (27.0-33.0); MEAN CORPUSCULAR VOLUME 108.2 fl (80.0-96.0); MONO # 0.4 10^3/uL (0.0-0.8); MONO % 4.9 % (2.0-8.0); NEUTROPHILS # 3.8 10^3/uL (1.5-8.5); PLATELET COUNT, AUTOMATED 206 10^3/uL (150-450); WHITE BLOOD COUNT 7.5 10^3/uL (4.0-10.0)
[2024-12-21 15:41] LABS: ALBUMIN 4.1 G/DL (3.2-5.2); BILIRUBIN,TOTAL 0.4 MG/DL (0.3-1.2); CALCIUM LEVEL 9.3 MG/DL (8.3-10.6); CHOLESTEROL RISK RATIO 1.97 (<5); CREATININE FOR GFR 1.54 MG/DL (0.70-1.30); FOLATE 15.2 NG/ML (>5.4); GLOMERULAR FILTRATION RATE 43.4 (>35); HDL CHOLESTEROL 62.2 MG/DL (>40); NON-HDL-C 60.8 MG/DL; POTASSIUM SERUM 5.9 MMOL/L (3.5-5.1); TOTAL 25(OH) VITAMIN D 18.4 NG/ML (20.0-100.0); TOTAL PROTEIN 6.8 G/DL (5.7-8.2)
[2024-12-21 15:43] LABS: LITHIUM LEVEL 1.25 MMOL/L (1.0-1.20)
== END ==
LOC: M PLALAB 09:58
DX: J44.9 Chronic obstructive pulmonary disease, unspecified (principal); F31.9 Bipolar disorder, unspecified; E55.9 Vitamin D deficiency, unspecified; E53.1 Pyridoxine deficiency; E78.00 Pure hypercholesterolemia, unspecified; R91.1 Solitary pulmonary nodule

== ENCOUNTER → 2024-12-21 | Outpatient (REF) | payer MEDICARE | LOC: M SFHCPLAZ 09:01 | PROVIDERS: ATTEND Family Medicine | DX: Z53.21 Procedure and treatment not carried out due to patient leaving prior to being seen by health care provider (principal); F31.9 Bipolar disorder, unspecified; E55.9 Vitamin D deficiency, unspecified; R53.1 Weakness; E78.00 Pure hypercholesterolemia, unspecified ==

== ENCOUNTER → 2025-01-04 | Outpatient (REF) | payer MEDICARE | LOC: M SFHCPLAZ 08:42 | DX: D53.9 Nutritional anemia, unspecified (principal); E87.5 Hyperkalemia ==

== ENCOUNTER → 2025-03-07 | Outpatient (REF) | payer MEDICARE | LOC: M SFHCPLAZ 22:01 | PROVIDERS: ATTEND Family Medicine | DX: R35.0 Frequency of micturition (principal); Z53.9 Procedure and treatment not carried out, unspecified reason ==

== ENCOUNTER → 2025-06-13 | Outpatient (CLI) | payer MEDICARE ==
[2025-06-13 15:33] LABS: CALCIUM LEVEL 8.9 MG/DL (8.3-10.6); CARBON DIOXIDE LEVEL 22.0 MMOL/L (20-31); CHLORIDE LEVEL 109.0 MMOL/L (98-107); CREATININE FOR GFR 1.61 MG/DL (0.70-1.30); GLOMERULAR FILTRATION RATE 41.1 (>35); POTASSIUM SERUM 5.7 MMOL/L (3.5-5.1); SODIUM LEVEL 141.0 MMOL/L (136-145)
== END ==
LOC: M PLALAB 12:36
DX: R39.9 Unspecified symptoms and signs involving the genitourinary system (principal); E87.5 Hyperkalemia

== ENCOUNTER → 2025-06-13 | Outpatient (REF) | payer MEDICARE | LOC: M SFHCPLAZ 12:39 | PROVIDERS: ATTEND Family Medicine | DX: Z53.9 Procedure and treatment not carried out, unspecified reason (principal) ==

== ENCOUNTER → 2025-07-03 | Outpatient (CLI) | payer MEDICARE ==
[2025-07-03 14:05] LABS: PLATELET COUNT, AUTOMATED 212 10^3/uL (150-450)
[2025-07-03 14:30] LABS: LITHIUM LEVEL 1.06 MMOL/L (1.0-1.20)
[2025-07-03 14:32] LABS: CREATININE FOR GFR 1.49 MG/DL (0.70-1.30); GLOMERULAR FILTRATION RATE 45.1 (>35)
== END ==
LOC: M PLALAB 12:05
PROVIDERS: ATTEND Psychiatry & Neurology Psychiatry
DX: Z51.81 Encounter for therapeutic drug level monitoring (principal); Z79.899 Other long term (current) drug therapy

== ENCOUNTER 2025-07-30 21:59 | Inpatient (IN) | payer MEDICARE ==
[~2025-07-30] VITALS: Ht 182.9 cm; Wt 68.0 kg
[2025-07-30 22:45] LABS: BASO # 0.0 10^3/uL (0.0-0.2); BASO % 0.2 % (0.0-1.0); EOS # 0.0 10^3/uL (0.0-0.5); EOS % 0.0 % (0.0-3.0); LYMPH # 1.0 10^3/uL (1.5-5.0); LYMPH % 10.9 % (24.0-44.0); MONO # 0.5 10^3/uL (0.0-0.8); MONO % 5.2 % (2.0-8.0); NEUTROPHILS # 7.8 10^3/uL (1.5-8.5); NEUTROPHILS % 83.3 % (36.0-66.0); PLATELET COUNT, AUTOMATED 147 10^3/uL (150-450)
[2025-07-30 23:05] LABS: LITHIUM LEVEL 1.27 MMOL/L (1.0-1.20)
[2025-07-30 23:06] LABS: THYROXINE (T4) 4.6 UG/DL (4.5-10.9)
[2025-07-30 23:07] LABS: ALT/SGPT < 9 U/L (7.0-40); AST/SGOT 15 U/L (<34); CALCIUM LEVEL 7.5 MG/DL (8.3-10.6); CARBON DIOXIDE LEVEL 18 MMOL/L (20-31); CHLORIDE LEVEL 114 MMOL/L (98-107); CREATININE FOR GFR 1.65 MG/DL (0.70-1.30); GLOMERULAR FILTRATION RATE 39.9 (>35); POTASSIUM SERUM 5.3 MMOL/L (3.5-5.1); SODIUM LEVEL 141 MMOL/L (136-145)
[2025-07-30 23:42] LABS: CPK CREATINE PHOSPHOKINASE 122 U/L (46-171)
[2025-07-31] MEDS ORDERED: MAALOX 30 ML SUSP *UDC PO PRN (00:25)
[2025-07-31] MEDS ORDERED: TAMS1CAP17 PO (05:50)
[2025-07-31] MEDS ORDERED: ANOR1AER INH (05:50)
[2025-07-31] MEDS ORDERED: SPIR1CAP INH (05:50)
[2025-07-31] MEDS ORDERED: HOME MED LIST COMPLETE! XX SCH ×2 (06:00→15:45)
[2025-07-31] MEDS ORDERED: ALBUTEROL SULFATE 2.5 MG/0.5 ML INH CONCENTRATE NEB SOLN NEB PRN ×2 (06:10→08:05)
[2025-07-31] MEDS ORDERED: MED REC IN PROGRESS XX SCH (06:30)
[2025-07-31 07:09] LABS: BASO # 0.0 10^3/uL (0.0-0.2); BASO % 0.1 % (0.0-1.0); EOS # 0.0 10^3/uL (0.0-0.5); EOS % 0.1 % (0.0-3.0); LYMPH # 1.2 10^3/uL (1.5-5.0); LYMPH % 13.1 % (24.0-44.0); MONO # 0.4 10^3/uL (0.0-0.8); MONO % 5.0 % (2.0-8.0); NEUTROPHILS # 7.2 10^3/uL (1.5-8.5); NEUTROPHILS % 81.5 % (36.0-66.0); PLATELET COUNT, AUTOMATED 171 10^3/uL (150-450)
[2025-07-31 07:43] LABS: LITHIUM LEVEL 1.30 MMOL/L (1.0-1.20)
[2025-07-31 07:44] LABS: ALT/SGPT < 9 U/L (7.0-40); AST/SGOT 16 U/L (<34); CALCIUM LEVEL 8.8 MG/DL (8.3-10.6); CARBON DIOXIDE LEVEL 20 MMOL/L (20-31); CHLORIDE LEVEL 113 MMOL/L (98-107); CREATININE FOR GFR 1.55 MG/DL (0.70-1.30); GLOMERULAR FILTRATION RATE 43.1 (>35); POTASSIUM SERUM 4.8 MMOL/L (3.5-5.1); SODIUM LEVEL 142 MMOL/L (136-145)
[2025-07-31] MEDS: BUDESONIDE 0.5 MG/2 ML INHALATION SUSPENSION NEB SCH (08:00)
[2025-07-31] MEDS: DOCUSATE SODIUM 100 MG CAPSULE PO SCH (08:42)
[2025-07-31] MEDS: LIDOCAINE 5% PATCH TD SCH (09:00)
[2025-07-31] MEDS ORDERED: ADVAIR HFA 230/21 MCG INHALER INH SCH (09:00)
[2025-07-31] MEDS ORDERED: ENOXAPARIN 30 MG/0.3 ML SYRINGE (J1650 PER 10MG) SC SCH (09:00)
[2025-07-31] MEDS ORDERED: BARIUM SULFATE 700 MG TABLET As Ordered ONE (11:09)
[2025-07-31] MEDS ORDERED: VARIBAR NECTAR 40% w/v 240ML SUSP BTL As Ordered ONE (11:09)
[2025-07-31] MEDS ORDERED: E-Z-PAQUE 96% w/w SUSP 176 GM BTL As Ordered ONE (11:09)
[2025-07-31] MEDS ORDERED: VARIBAR PUDDING 40% w/v 230ML TUBE As Ordered ONE (11:09)
[2025-07-31] MEDS: CYANOCOBALAMIN 500 MCG TAB PO SCH (12:58)
[2025-07-31] MEDS ORDERED: IPRATROPIUM 0.5 MG/ALBUTEROL 2.5 MG INH SOL UD 3 ML NEB PRN (13:50)
[2025-07-31] MEDS: ALBUTEROL SULFATE 2.5 MG/0.5 ML INH CONCENTRATE NEB SOLN NEB SCH (14:18)
[2025-07-31] MEDS: TIOTROPIUM BROM 2.5MCG/ACTUATION 4GM INH INH SCH (14:18)
[2025-07-31] MEDS: TAMSULOSIN 0.4 MG CAP PO SCH (20:50)
[2025-07-31] MEDS: APIXABAN 2.5 MG TAB PO SCH (20:50)
[2025-07-31] MEDS: ASPIRIN 81 MG ENTERIC TABLET PO SCH (20:50)
[2025-07-31] MEDS: SIMVASTATIN 20 MG TAB PO SCH (20:50)
[2025-07-31] MEDS: PANTOPRAZOLE 40MG VIAL IV SCH (20:51)
[2025-08-01 02:19] VITALS: BP 106/51; TEMP 100.1; O2SAT 93
[2025-08-01 04:14] VITALS: BP 118/57; TEMP 97.2; O2SAT 92
[2025-08-01 07:35] LABS: PLATELET COUNT, AUTOMATED 151 10^3/uL (150-450)
[2025-08-01 08:05] LABS: CALCIUM LEVEL 8.7 MG/DL (8.3-10.6); CARBON DIOXIDE LEVEL 19.0 MMOL/L (20-31); CHLORIDE LEVEL 111.0 MMOL/L (98-107); CREATININE FOR GFR 1.56 MG/DL (0.70-1.30); GLOMERULAR FILTRATION RATE 42.7 (>35); LITHIUM LEVEL 1.23 MMOL/L (1.0-1.20); POTASSIUM SERUM 5.4 MMOL/L (3.5-5.1); SODIUM LEVEL 138.0 MMOL/L (136-145)
[2025-08-01] MEDS: FLUZONE HIGH DOSE (65+) 0.5 ML SYRINGE (25-26) IM.IMMUN ONE (09:32)
[2025-08-01 11:39] VITALS: BP 122/56; TEMP 98.7; O2SAT 90
[2025-08-01] MEDS: SODIUM BICARBONATE 325 MG TAB PO ONE (15:00)
[2025-08-01] MEDS: PATIROMER SORBITEX CALCIUM 8.4GM POWDER PACKET PO ONE (15:00)
[2025-08-01] MEDS ORDERED: ONDANSETRON 4MG/2ML VIAL IV PRN (16:00)
[2025-08-01] MEDS: CALCIUM GLUCONATE 1,000 MG in DEXTROSE 5% (D5W) MINI-BAG PLU 100 ML IV ONE (16:28)
[2025-08-01] MEDS: ONDANSETRON 4MG/2ML VIAL IV ONE (16:28)
[2025-08-01 16:57] LABS: CALCIUM LEVEL 9.1 MG/DL (8.3-10.6); CARBON DIOXIDE LEVEL 19.0 MMOL/L (20-31); CHLORIDE LEVEL 111.0 MMOL/L (98-107); CREATININE FOR GFR 1.52 MG/DL (0.70-1.30); GLOMERULAR FILTRATION RATE 44.1 (>35); MAGNESIUM LEVEL 2.0 MG/DL (1.8-2.4); POTASSIUM SERUM 5.3 MMOL/L (3.5-5.1); SODIUM LEVEL 137.0 MMOL/L (136-145)
[2025-08-01 20:30] VITALS: BP 101/53; TEMP 99.3; O2SAT 93
[2025-08-02 05:50] VITALS: BP 112/52; TEMP 97; O2SAT 92
[2025-08-02 05:55] LABS: PLATELET COUNT, AUTOMATED 175 10^3/uL (150-450)
[2025-08-02 06:18] LABS: LYMPHOCYTES 13 % (16-44); METAMYELOCYTES 1 % (0-0); MONOCYTES 2 % (0-5); NEUTROPHILS 72 % (28-66)
[2025-08-02 06:20] LABS: PLATELET ESTIMATE NORMAL (NORMAL)
[2025-08-02 06:24] LABS: CALCIUM LEVEL 9.0 MG/DL (8.3-10.6); CARBON DIOXIDE LEVEL 20.0 MMOL/L (20-31); CHLORIDE LEVEL 112.0 MMOL/L (98-107); CREATININE FOR GFR 1.73 MG/DL (0.70-1.30); GLOMERULAR FILTRATION RATE 37.7 (>35); MAGNESIUM LEVEL 2.1 MG/DL (1.8-2.4); POTASSIUM SERUM 6.0 MMOL/L (3.5-5.1); SODIUM LEVEL 139.0 MMOL/L (136-145)
[2025-08-02] MEDS ORDERED: HumuLIN R (REGULAR) INSULIN (NovoLIN R) **100 U/ML** PER UNIT SC STA (07:43)
[2025-08-02] MEDS: DEXTROSE 50% 50 ML SYRINGE IV STA ×2 (07:59→17:51)
[2025-08-02] MEDS: HumuLIN R (REGULAR) INSULIN (NovoLIN R) **100 U/ML** PER UNIT IV STA ×2 (08:00→17:51)
[2025-08-02] MEDS: NS 500 ML IV ONE (08:05)
[2025-08-02] MEDS: SODIUM BICARBONATE 325 MG TAB PO ONE (09:05)
[2025-08-02] MEDS: CALCIUM GLUCONATE 1,000 MG in DEXTROSE 5% (D5W) MINI-BAG PLU 100 ML IV ONE ×2 (09:05→18:21)
[2025-08-02] MEDS: PATIROMER SORBITEX CALCIUM 8.4GM POWDER PACKET PO ONE ×2 (09:06→18:16)
[2025-08-02 12:00] VITALS: BP 115/59; TEMP 98.7; O2SAT 94
[2025-08-02 17:22] LABS: CALCIUM LEVEL 9.3 MG/DL (8.3-10.6); CARBON DIOXIDE LEVEL 19.0 MMOL/L (20-31); CHLORIDE LEVEL 110.0 MMOL/L (98-107); CREATININE FOR GFR 1.67 MG/DL (0.70-1.30); GLOMERULAR FILTRATION RATE 39.4 (>35); POTASSIUM SERUM 5.6 MMOL/L (3.5-5.1); SODIUM LEVEL 137.0 MMOL/L (136-145)
[2025-08-02] MEDS: SODIUM BICARBONATE 150 MEQ in STERILE WATER LITER BAG 1,000 ML IV SCH (19:28)
[2025-08-02 20:44] VITALS: BP 117/57; TEMP 98.5; O2SAT 91
[2025-08-02] MEDS ORDERED: SODIUM BICARBONATE 325 MG TAB PO SCH (21:00)
[2025-08-03 00:55] LABS: CALCIUM LEVEL 8.8 MG/DL (8.3-10.6); CARBON DIOXIDE LEVEL 20.0 MMOL/L (20-31); CHLORIDE LEVEL 110.0 MMOL/L (98-107); CREATININE FOR GFR 1.56 MG/DL (0.70-1.30); GLOMERULAR FILTRATION RATE 42.7 (>35); MAGNESIUM LEVEL 1.9 MG/DL (1.8-2.4); PHOSPHORUS LEVEL 4.0 MG/DL (2.4-5.1); POTASSIUM SERUM 5.3 MMOL/L (3.5-5.1); SODIUM LEVEL 136.0 MMOL/L (136-145)
[2025-08-03 05:08] VITALS: BP 109/53; TEMP 98.2; O2SAT 93
[2025-08-03 07:10] LABS: BASO # 0.0 10^3/uL (0.0-0.2); BASO % 0.2 % (0.0-1.0); EOS # 0.0 10^3/uL (0.0-0.5); EOS % 0.0 % (0.0-3.0); LYMPH # 0.5 10^3/uL (1.5-5.0); LYMPH % 9.5 % (24.0-44.0); MONO # 0.5 10^3/uL (0.0-0.8); MONO % 10.3 % (2.0-8.0); NEUTROPHILS # 3.9 10^3/uL (1.5-8.5); NEUTROPHILS % 79.6 % (36.0-66.0); PLATELET COUNT, AUTOMATED 192 10^3/uL (150-450)
[2025-08-03 07:29] LABS: CALCIUM LEVEL 9.2 MG/DL (8.3-10.6); CARBON DIOXIDE LEVEL 21.0 MMOL/L (20-31); CHLORIDE LEVEL 108.0 MMOL/L (98-107); CREATININE FOR GFR 1.54 MG/DL (0.70-1.30); GLOMERULAR FILTRATION RATE 43.4 (>35); MAGNESIUM LEVEL 1.9 MG/DL (1.8-2.4); PHOSPHORUS LEVEL 4.1 MG/DL (2.4-5.1); POTASSIUM SERUM 5.3 MMOL/L (3.5-5.1); SODIUM LEVEL 134.0 MMOL/L (136-145)
[2025-08-03] MEDS: PATIROMER SORBITEX CALCIUM 8.4GM POWDER PACKET PO ONE (07:48)
[2025-08-03] MEDS: CALCIUM GLUCONATE 1,000 MG in DEXTROSE 5% (D5W) MINI-BAG PLU 100 ML IV ONE (07:48)
[2025-08-03 11:56] VITALS: BP 123/56; TEMP 97.6; O2SAT 92
[2025-08-03 13:07] LABS: CALCIUM LEVEL 9.0 MG/DL (8.3-10.6); CARBON DIOXIDE LEVEL 21.0 MMOL/L (20-31); CHLORIDE LEVEL 110.0 MMOL/L (98-107); CREATININE FOR GFR 1.5 MG/DL (0.70-1.30); GLOMERULAR FILTRATION RATE 44.8 (>35); MAGNESIUM LEVEL 1.8 MG/DL (1.8-2.4); PHOSPHORUS LEVEL 3.8 MG/DL (2.4-5.1); POTASSIUM SERUM 4.5 MMOL/L (3.5-5.1); SODIUM LEVEL 138.0 MMOL/L (136-145)
[2025-08-03 18:40] LABS: CALCIUM LEVEL 8.6 MG/DL (8.3-10.6); CARBON DIOXIDE LEVEL 23.0 MMOL/L (20-31); CHLORIDE LEVEL 109.0 MMOL/L (98-107); CREATININE FOR GFR 1.47 MG/DL (0.70-1.30); GLOMERULAR FILTRATION RATE 45.9 (>35); MAGNESIUM LEVEL 1.8 MG/DL (1.8-2.4); PHOSPHORUS LEVEL 4.0 MG/DL (2.4-5.1); POTASSIUM SERUM 5.2 MMOL/L (3.5-5.1); SODIUM LEVEL 138.0 MMOL/L (136-145)
[2025-08-03 20:33] VITALS: BP 113/59; TEMP 98.4; O2SAT 90
[2025-08-04 00:49] LABS: CALCIUM LEVEL 8.5 MG/DL (8.3-10.6); CARBON DIOXIDE LEVEL 23.0 MMOL/L (20-31); CHLORIDE LEVEL 107.0 MMOL/L (98-107); CREATININE FOR GFR 1.5 MG/DL (0.70-1.30); GLOMERULAR FILTRATION RATE 44.8 (>35); MAGNESIUM LEVEL 1.8 MG/DL (1.8-2.4); PHOSPHORUS LEVEL 3.6 MG/DL (2.4-5.1); POTASSIUM SERUM 5.3 MMOL/L (3.5-5.1); SODIUM LEVEL 136.0 MMOL/L (136-145)
[2025-08-04 04:40] VITALS: BP 103/55; TEMP 98.2; O2SAT 93
[2025-08-04 06:32] LABS: BASO # 0.0 10^3/uL (0.0-0.2); BASO % 0.2 % (0.0-1.0); EOS # 0.0 10^3/uL (0.0-0.5); EOS % 0.0 % (0.0-3.0); LYMPH # 0.5 10^3/uL (1.5-5.0); LYMPH % 9.6 % (24.0-44.0); MONO # 0.5 10^3/uL (0.0-0.8); MONO % 9.4 % (2.0-8.0); NEUTROPHILS # 4.5 10^3/uL (1.5-8.5); NEUTROPHILS % 80.3 % (36.0-66.0); PLATELET COUNT, AUTOMATED 204 10^3/uL (150-450)
[2025-08-04 06:51] LABS: CALCIUM LEVEL 8.6 MG/DL (8.3-10.6); CARBON DIOXIDE LEVEL 24.0 MMOL/L (20-31); CHLORIDE LEVEL 109.0 MMOL/L (98-107); CREATININE FOR GFR 1.48 MG/DL (0.70-1.30); GLOMERULAR FILTRATION RATE 45.5 (>35); LITHIUM LEVEL 0.7 MMOL/L (1.0-1.20); MAGNESIUM LEVEL 1.9 MG/DL (1.8-2.4); PHOSPHORUS LEVEL 3.7 MG/DL (2.4-5.1); POTASSIUM SERUM 5.1 MMOL/L (3.5-5.1); SODIUM LEVEL 138.0 MMOL/L (136-145)
[2025-08-04 12:00] VITALS: BP 140/63; TEMP 97.8; O2SAT 95
[2025-08-04] MEDS: MIDODRINE 5 MG TAB PO ONE (12:26)
[2025-08-04] MEDS: FUROSEMIDE 20 MG/2 ML VIAL IV ONE (12:26)
[2025-08-04 12:38] VITALS: O2SAT 97
[2025-08-04 12:38] LABS: CALCIUM LEVEL 8.8 MG/DL (8.3-10.6); CARBON DIOXIDE LEVEL 22.0 MMOL/L (20-31); CHLORIDE LEVEL 110.0 MMOL/L (98-107); CREATININE FOR GFR 1.43 MG/DL (0.70-1.30); GLOMERULAR FILTRATION RATE 47.4 (>35); MAGNESIUM LEVEL 1.8 MG/DL (1.8-2.4); PHOSPHORUS LEVEL 3.1 MG/DL (2.4-5.1); POTASSIUM SERUM 4.7 MMOL/L (3.5-5.1); SODIUM LEVEL 141.0 MMOL/L (136-145)
[2025-08-04 12:39] VITALS: O2SAT 94
[2025-08-04] MEDS: FUROSEMIDE 20 MG/2 ML VIAL IV SCH (16:18)
[2025-08-04 19:09] LABS: CALCIUM LEVEL 8.6 MG/DL (8.3-10.6); CARBON DIOXIDE LEVEL 24.0 MMOL/L (20-31); CHLORIDE LEVEL 108.0 MMOL/L (98-107); CREATININE FOR GFR 1.47 MG/DL (0.70-1.30); GLOMERULAR FILTRATION RATE 45.9 (>35); MAGNESIUM LEVEL 1.7 MG/DL (1.8-2.4); PHOSPHORUS LEVEL 3.6 MG/DL (2.4-5.1); POTASSIUM SERUM 5.0 MMOL/L (3.5-5.1); SODIUM LEVEL 139.0 MMOL/L (136-145)
[2025-08-04 21:17] VITALS: BP 117/57; TEMP 99; O2SAT 92
[2025-08-05] VITALS (14 sets, daily range): BP systolic 107–134; BP diastolic 53–61; TEMP 98.2–99.1; O2SAT 83–98
[2025-08-05 00:16] LABS: CALCIUM LEVEL 8.4 MG/DL (8.3-10.6); CARBON DIOXIDE LEVEL 24.0 MMOL/L (20-31); CHLORIDE LEVEL 106.0 MMOL/L (98-107); CREATININE FOR GFR 1.49 MG/DL (0.70-1.30); GLOMERULAR FILTRATION RATE 45.1 (>35); MAGNESIUM LEVEL 1.7 MG/DL (1.8-2.4); PHOSPHORUS LEVEL 3.6 MG/DL (2.4-5.1); POTASSIUM SERUM 4.5 MMOL/L (3.5-5.1); SODIUM LEVEL 137.0 MMOL/L (136-145)
[2025-08-05 06:05] LABS: BASO # 0.0 10^3/uL (0.0-0.2); BASO % 0.2 % (0.0-1.0); EOS # 0.0 10^3/uL (0.0-0.5); EOS % 0.3 % (0.0-3.0); LYMPH # 1.2 10^3/uL (1.5-5.0); LYMPH % 18.4 % (24.0-44.0); MONO # 0.7 10^3/uL (0.0-0.8); MONO % 9.9 % (2.0-8.0); NEUTROPHILS # 4.6 10^3/uL (1.5-8.5); NEUTROPHILS % 70.0 % (36.0-66.0); PLATELET COUNT, AUTOMATED 252 10^3/uL (150-450)
[2025-08-05 06:32] LABS: CALCIUM LEVEL 8.4 MG/DL (8.3-10.6); CARBON DIOXIDE LEVEL 25.0 MMOL/L (20-31); CHLORIDE LEVEL 106.0 MMOL/L (98-107); CREATININE FOR GFR 1.56 MG/DL (0.70-1.30); GLOMERULAR FILTRATION RATE 42.7 (>35); LITHIUM LEVEL 0.62 MMOL/L (1.0-1.20); MAGNESIUM LEVEL 1.6 MG/DL (1.8-2.4); PHOSPHORUS LEVEL 3.0 MG/DL (2.4-5.1); POTASSIUM SERUM 4.7 MMOL/L (3.5-5.1); SODIUM LEVEL 138.0 MMOL/L (136-145)
[2025-08-05] MEDS: IPRATROPIUM 0.5 MG/ALBUTEROL 2.5 MG INH SOL UD 3 ML NEB SCH (10:06)
[2025-08-05 10:29] LABS: ABG BASE EXCESS 0.2 (-2.0-2.0); ABG HCO3 23.8 MMOL/L (22.0-26.0); ABG O2 SATURATION 94.2 % (95.0-99.0); ABG PARTIAL PRESSURE CO2 34.9 mmHg (35.0-45.0); ABG PARTIAL PRESSURE O2 68.6 mmHg (75.0-100.0); ABG STANDARD HCO3 24.6 MMOL/L. (22.0-26.0); ABG TOTAL CO2 24.8 MMOL/L (23.0-31.0); ABG pH (ARTERIAL) 7.451 UNITS (7.350-7.450)
[2025-08-05] MEDS: CEFDINIR 300 MG CAP PO SCH (10:41)
[2025-08-05] MEDS: DOXYCYCLINE HYCLATE 100 MG TABLET PO SCH (10:41)
[2025-08-05] MEDS: cefTRIAXone SOD 1 GM in DEXTROSE 5% (D5W) ADV/MINI-BAG 50 ML IV SCH (14:35)
[2025-08-05] MEDS: MAG SULF 1GM/100ML (MAG RUN) 1 GM in IV 1 EA IV ONE (18:19)
[2025-08-06 04:41] VITALS: BP 122/57; TEMP 98; O2SAT 92
[2025-08-06 06:14] LABS: BASO # 0.0 10^3/uL (0.0-0.2); BASO % 0.1 % (0.0-1.0); EOS # 0.0 10^3/uL (0.0-0.5); EOS % 0.2 % (0.0-3.0); LYMPH # 1.3 10^3/uL (1.5-5.0); LYMPH % 14.6 % (24.0-44.0); MONO # 0.5 10^3/uL (0.0-0.8); MONO % 5.3 % (2.0-8.0); NEUTROPHILS # 7.0 10^3/uL (1.5-8.5); NEUTROPHILS % 78.1 % (36.0-66.0); PLATELET COUNT, AUTOMATED 260 10^3/uL (150-450)
[2025-08-06 06:41] LABS: IRON (FE) 22.0 UG/DL (65-175); LITHIUM LEVEL 0.58 MMOL/L (1.0-1.20); PERCENT SATURATION 12.3 % (19.7-50.0)
[2025-08-06 06:42] LABS: CALCIUM LEVEL 8.1 MG/DL (8.3-10.6); CARBON DIOXIDE LEVEL 25.0 MMOL/L (20-31); CHLORIDE LEVEL 106.0 MMOL/L (98-107); CREATININE FOR GFR 1.81 MG/DL (0.70-1.30); GLOMERULAR FILTRATION RATE 35.7 (>35); PHOSPHORUS LEVEL 4.3 MG/DL (2.4-5.1); POTASSIUM SERUM 4.3 MMOL/L (3.5-5.1); SODIUM LEVEL 138.0 MMOL/L (136-145)
[2025-08-06] MEDS: predniSONE 20 MG TAB PO SCH (09:48)
[2025-08-06 12:00] VITALS: BP 113/55; TEMP 98.4; O2SAT 95
[2025-08-06] MEDS: FERRIC CARBOXYMALTOSE INJ 750 MG, VIAL MATE ADAPTER 1 EACH in NS 100 ML IV ONE (16:45)
[2025-08-06 20:08] VITALS: BP 119/58; TEMP 98.3; O2SAT 93
[2025-08-07 05:03] VITALS: BP 103/53; TEMP 98.2; O2SAT 93
[2025-08-07 06:35] LABS: BASO # 0.0 10^3/uL (0.0-0.2); BASO % 0.2 % (0.0-1.0); EOS # 0.0 10^3/uL (0.0-0.5); EOS % 0.3 % (0.0-3.0); LYMPH # 1.4 10^3/uL (1.5-5.0); LYMPH % 11.5 % (24.0-44.0); MONO # 0.5 10^3/uL (0.0-0.8); MONO % 4.4 % (2.0-8.0); NEUTROPHILS # 9.7 10^3/uL (1.5-8.5); NEUTROPHILS % 81.3 % (36.0-66.0); PLATELET COUNT, AUTOMATED 285 10^3/uL (150-450)
[2025-08-07 06:59] LABS: LITHIUM LEVEL 0.52 MMOL/L (1.0-1.20)
[2025-08-07 10:19] LABS: CALCIUM LEVEL 8.3 MG/DL (8.3-10.6); CARBON DIOXIDE LEVEL 21.0 MMOL/L (20-31); CHLORIDE LEVEL 107.0 MMOL/L (98-107); CREATININE FOR GFR 1.55 MG/DL (0.70-1.30); GLOMERULAR FILTRATION RATE 43.1 (>35); MAGNESIUM LEVEL 2.0 MG/DL (1.8-2.4); POTASSIUM SERUM 4.9 MMOL/L (3.5-5.1); SODIUM LEVEL 137.0 MMOL/L (136-145)
[2025-08-07] MEDS: CEFDINIR 300 MG CAP PO SCH (11:23)
[2025-08-07 12:00] VITALS: BP 128/50; TEMP 97.8; O2SAT 95
[2025-08-07 20:19] VITALS: BP 110/58; TEMP 99.3; O2SAT 96
[2025-08-08 04:10] VITALS: BP 124/56; TEMP 97.3; O2SAT 94
[2025-08-08 07:01] LABS: BASO # 0.0 10^3/uL (0.0-0.2); BASO % 0.2 % (0.0-1.0); EOS # 0.1 10^3/uL (0.0-0.5); EOS % 0.4 % (0.0-3.0); LYMPH # 1.6 10^3/uL (1.5-5.0); LYMPH % 13.7 % (24.0-44.0); MONO # 0.5 10^3/uL (0.0-0.8); MONO % 3.9 % (2.0-8.0); NEUTROPHILS # 9.5 10^3/uL (1.5-8.5); NEUTROPHILS % 79.7 % (36.0-66.0); PLATELET COUNT, AUTOMATED 308 10^3/uL (150-450)
[2025-08-08 07:25] LABS: CALCIUM LEVEL 8.4 MG/DL (8.3-10.6); CARBON DIOXIDE LEVEL 23.0 MMOL/L (20-31); CHLORIDE LEVEL 107.0 MMOL/L (98-107); CREATININE FOR GFR 1.48 MG/DL (0.70-1.30); GLOMERULAR FILTRATION RATE 45.5 (>35); POTASSIUM SERUM 4.7 MMOL/L (3.5-5.1); SODIUM LEVEL 138.0 MMOL/L (136-145)
[2025-08-08] MEDS: ACETAMINOPHEN 325 MG TAB PO PRN (09:05)
[2025-08-08 10:13] VITALS: O2SAT 92
[2025-08-08 12:51] VITALS: BP 98/49; TEMP 98; O2SAT 90
[2025-08-08 20:08] VITALS: BP 106/53; TEMP 98.8; O2SAT 90
[2025-08-08] MEDS: LITHIUM CARBONATE 300 MG CAP PO SCH (20:24)
[2025-08-08] MEDS: RAMELTEON 8 MG TAB PO PRN (21:16)
[2025-08-09 04:05] VITALS: BP 111/56; TEMP 98.5; O2SAT 90
[2025-08-09 07:14] LABS: BASO # 0.0 10^3/uL (0.0-0.2); BASO % 0.1 % (0.0-1.0); EOS # 0.0 10^3/uL (0.0-0.5); EOS % 0.3 % (0.0-3.0); LYMPH # 1.6 10^3/uL (1.5-5.0); LYMPH % 15.3 % (24.0-44.0); MONO # 0.5 10^3/uL (0.0-0.8); MONO % 4.3 % (2.0-8.0); NEUTROPHILS # 8.3 10^3/uL (1.5-8.5); NEUTROPHILS % 77.7 % (36.0-66.0); PLATELET COUNT, AUTOMATED 289 10^3/uL (150-450)
[2025-08-09 07:42] LABS: CALCIUM LEVEL 8.3 MG/DL (8.3-10.6); CARBON DIOXIDE LEVEL 23.0 MMOL/L (20-31); CHLORIDE LEVEL 108.0 MMOL/L (98-107); CREATININE FOR GFR 1.59 MG/DL (0.70-1.30); GLOMERULAR FILTRATION RATE 41.8 (>35); POTASSIUM SERUM 5.0 MMOL/L (3.5-5.1); SODIUM LEVEL 139.0 MMOL/L (136-145)
[2025-08-09 08:46] VITALS: O2SAT 89
[2025-08-09 12:00] VITALS: BP 112/56; TEMP 98.2; O2SAT 92
[2025-08-09] MEDS: PATIROMER SORBITEX CALCIUM 8.4GM POWDER PACKET PO ONE (13:22)
[2025-08-09] MEDS: SYMBICORT 160/4.5MCG INHALER 6GM INH SCH (19:32)
[2025-08-09 20:22] VITALS: BP 112/55; TEMP 98.7; O2SAT 91
[2025-08-10 03:20] VITALS: BP 106/56; TEMP 98.6; O2SAT 94
[2025-08-10 06:18] LABS: CALCIUM LEVEL 8.3 MG/DL (8.3-10.6); CARBON DIOXIDE LEVEL 24.0 MMOL/L (20-31); CHLORIDE LEVEL 108.0 MMOL/L (98-107); CREATININE FOR GFR 1.62 MG/DL (0.70-1.30); GLOMERULAR FILTRATION RATE 40.8 (>35); POTASSIUM SERUM 5.2 MMOL/L (3.5-5.1); SODIUM LEVEL 138.0 MMOL/L (136-145)
[2025-08-10 11:49] VITALS: BP 116/59; TEMP 98.4; O2SAT 94
[2025-08-10] MEDS: PATIROMER SORBITEX CALCIUM 8.4GM POWDER PACKET PO SCH (13:12)
[2025-08-10] MEDS: NS (Normal Saline) 0.9% 1,000 ML IV ONE (14:54)
[2025-08-10 20:20] VITALS: BP 106/53; TEMP 98.3; O2SAT 92
[2025-08-11 04:56] VITALS: BP 115/58; TEMP 98.9; O2SAT 92
[2025-08-11 07:03] LABS: CALCIUM LEVEL 8.6 MG/DL (8.3-10.6); CARBON DIOXIDE LEVEL 22.0 MMOL/L (20-31); CHLORIDE LEVEL 109.0 MMOL/L (98-107); CREATININE FOR GFR 1.46 MG/DL (0.70-1.30); GLOMERULAR FILTRATION RATE 46.3 (>35); POTASSIUM SERUM 5.5 MMOL/L (3.5-5.1); SODIUM LEVEL 139.0 MMOL/L (136-145)
[2025-08-11] MEDS ORDERED: DEXTROSE 50% 50 ML SYRINGE IV PRN (08:50)
[2025-08-11] MEDS ORDERED: GLUCAGON INJ 1 MG VIAL SC PRN (08:50)
[2025-08-11] MEDS ORDERED: GLUCOSE 4 GM CHEW PO PRN (08:50)
[2025-08-11] MEDS: HumuLIN R (REGULAR) INSULIN (NovoLIN R) **100 U/ML** PER UNIT IV STA (09:07)
[2025-08-11] MEDS: predniSONE 10 MG TAB PO SCH (09:07)
[2025-08-11] MEDS: DEXTROSE 50% 50 ML SYRINGE IV STA (09:07)
[2025-08-11] MEDS: ALBUTEROL SULFATE 2.5 MG/0.5 ML INH CONCENTRATE NEB SOLN NEB SCH (09:18)
[2025-08-11] MEDS: SODIUM BICARBONATE 75 MEQ in NS 0.45% 1,000 ML IV SCH (11:38)
[2025-08-11 11:39] VITALS: BP 110/57; TEMP 98.3; O2SAT 92
[2025-08-11] MEDS: MOM 30 ML SUSPENSION UDC PO ONE (13:29)
[2025-08-11 19:28] VITALS: BP 117/56; TEMP 98.5; O2SAT 96
[2025-08-11] MEDS: SENNOSIDES/DOCUSATE SODIUM 8.6 MG/50MG TAB PO SCH (20:43)
[2025-08-12 03:56] VITALS: BP 116/56; TEMP 98.1; O2SAT 97
[2025-08-12 06:51] LABS: CALCIUM LEVEL 8.3 MG/DL (8.3-10.6); CARBON DIOXIDE LEVEL 23.0 MMOL/L (20-31); CHLORIDE LEVEL 107.0 MMOL/L (98-107); CREATININE FOR GFR 1.5 MG/DL (0.70-1.30); GLOMERULAR FILTRATION RATE 44.8 (>35); POTASSIUM SERUM 5.0 MMOL/L (3.5-5.1); SODIUM LEVEL 138.0 MMOL/L (136-145)
[2025-08-12] MEDS ORDERED: FURO20TA2 PO (14:39)
[2025-08-12] MEDS ORDERED: PRED10TA2 PO (14:39)
== END 2025-08-12 16:01 | disposition home health service (06) | DRG 190 ==
LOC: EDBD 21:59 → M ED 21:59 → M ED INP 22:00 → M MSPAV 08-01 01:53 → OBSVTOIN 08-01 14:56
PROVIDERS: ADMIT Student in an Organized Health Care Education/Training Program; ATTEND Internal Medicine
PROC: B246ZZZ Ultrasonography of Right and Left Heart (ICD-10-PCS; principal; 2025-08-01)
DX: J44.0 Chronic obstructive pulmonary disease with (acute) lower respiratory infection (principal); J15.9 Unspecified bacterial pneumonia; I50.32 Chronic diastolic (congestive) heart failure; E87.20 Acidosis, unspecified; N17.9 Acute kidney failure, unspecified; I44.2 Atrioventricular block, complete; N18.30 Chronic kidney disease, stage 3 unspecified; I25.10 Atherosclerotic heart disease of native coronary artery without angina pectoris; F31.9 Bipolar disorder, unspecified; G47.33 Obstructive sleep apnea (adult) (pediatric); N40.1 Benign prostatic hyperplasia with lower urinary tract symptoms; R33.9 Retention of urine, unspecified; R54 Age-related physical debility; J44.1 Chronic obstructive pulmonary disease with (acute) exacerbation; R13.10 Dysphagia, unspecified; Z66 Do not resuscitate; J06.9 Acute upper respiratory infection, unspecified; B97.89 Other viral agents as the cause of diseases classified elsewhere; R53.1 Weakness; R29.6 Repeated falls; M19.90 Unspecified osteoarthritis, unspecified site; E78.00 Pure hypercholesterolemia, unspecified; T43.595A Adverse effect of other antipsychotics and neuroleptics, initial encounter; E55.9 Vitamin D deficiency, unspecified; E87.5 Hyperkalemia; E86.0 Dehydration; Z96.643 Presence of artificial hip joint, bilateral; F17.200 Nicotine dependence, unspecified, uncomplicated; Z95.5 Presence of coronary angioplasty implant and graft; Z95.0 Presence of cardiac pacemaker; Z79.01 Long term (current) use of anticoagulants; Z79.82 Long term (current) use of aspirin; Z79.899 Other long term (current) drug therapy; Z88.0 Allergy status to penicillin; Z88.8 Allergy status to other drugs, medicaments and biological substances; Z90.49 Acquired absence of other specified parts of digestive tract; D64.9 Anemia, unspecified